=== PATIENT | male | born 1970 | race Caucasian/White ===

== ENCOUNTER 2020-09-08 20:13 | Emergency (ER) | payer BC, SELFPAY ==
--- NOTE | 2020-09-08 | ECG_ITS ---
Test Reason : CHEST PAIN Blood Pressure : / mmHG Vent. Rate : 074 BPM Atrial Rate : 074 BPM P-R Int : 144 ms QRS Dur : 104 ms QT Int : 428 ms P-R-T Axes : 064 034 089 degrees QTc Int : 475 ms Sinus rhythm with occasional Premature ventricular complexes Possible Left atrial enlargement Left ventricular hypertrophy with repolarization abnormality Abnormal ECG No previous ECGs available Referred By: Generic ED Physician Electronically Signed By:PAPO GARCIA
[2020-09-08 20:17] VITALS: BP 147/79; PULSE 72; RESP 18; TEMP 36.5; O2SAT 97; BMI 32.3
--- NOTE | 2020-09-08 20:56 | ED.CHESTPAIN ---
HPI - Chest Pain General Chief Complaint: Chest Pain Stated Complaint: Chest Pain Time Seen by Provider: 09/08/20 20:56 Source: patient Mode of arrival: ambulatory Limitations: no limitations History of Present Illness HPI narrative: Patient is status post aortic valve replaced x2 for congenital bicuspid aortic valve last surgery was 2 years ago when he had a cardiac catheterization done which was negative for any coronary artery disease. Patient on Coumadin with therapeutic INR complaining of chest pain for last 2 weeks off and on lasting only for 30 secondsto 1 min with no diaphoresis or nausea/ vomiting patient does complain of mild shortness of breath saturating 98% at room air when he arrived no palpitation no syncope patient has not seen cardiology for last 2 years applied today had pain prior to arrival hence came to the ER no chest pain at this time patient is on aspirin and Coumadin Related Data Allergies Allergy/AdvReac Type Severity Reaction Status Date / Time No Known Allergies Allergy Unverified 10/29/19 15:39 [No Known Allergies*] Review of Systems Review of Systems: Constitutional : No Weight loss, No Fever, No Chills ENT/Mouth : No sore throat, No Rhinorrhea Eyes: No Eye Pain, No Swelling Cardiovascular : + Chest Pain, no palpitations Respiratory : No Cough, No Sputum, + shortness of breath Gastrointestinal : no Nausea, No Vomiting, No Diarrhea, No abdominal Pain, no black stools Genitourinary : No Dysuria, No Urinary Frequency Musculoskeletal : No joint pain, No Myalgias, No Joint Swelling Skin : No Skin Lesions, No rash Neuro : No Weakness, No Numbness, No Dizziness, No Headache Psych : No Anxiety/Panic, No Depression Heme/Lymph: No Bruising, No Lymphadenopathy Endocrine : No Polyuria, No Polydipsia All other systems reviewed and are negative [facility] Past Medical History Medical History HTN (hypertension) Surgical History Aortic valve replaced Social History Social History Advance Directives: No Advance Directives Information Provided: No Physical Exam Vital Signs: Vital Signs: Last Vital Signs Temp 97.7 F 09/08/20 20:17 Pulse 72 07/29/21 20:17 Resp 18 09/08/20 20:17 BP 147/79 H 09/08/20 20:17 Pulse Ox 97 09/08/20 20:17 Body Mass Index 32.3 Appearance: Alert. Oriented X3. No acute distress. Eyes: PERRLA, no icterus or pallor ENT: Pharynx normal. Oral Mucosa moist Neck: Normal inspection. Neck supple. CVS: Normal heart rate and rhythm. Pulses normal. Aortic valve click++ no murmur Respiratory: No respiratory distress. Equal air entry bilateral, no wheezing/rales/rhonchi Abdomen: Soft and nontender. Bowel sounds are present, no mass palpable, no CVA tenderness Skin: Skin warm and dry. Normal skin color. Normal skin turgor. Extremities: No lower extremity edema. No calf tenderness Neuro: Oriented X 3. MDM - Chest Pain MDM Narrative Medical decision making narrative: Patient with atypical chest pain with no known coronary artery disease had cardiac catheterization 2 years ago which was negative on Coumadin and aspirin came for atypical chest pain lasting for 30 seconds to 1 minute for last 2 weeks with normal EKG and 2 sets of high sensitive troponin without any significant delta change at this time patient is chest pain-free will discharge patient home advised to follow-up with his manager support services Lab Data Attestation: I reviewed the patient's lab results. Result diagrams: 09/08/20 21:04 09/08/20 21:04 Labs: Lab Results 09/08/20 09/08/20 09/08/20 Range/Units 21:03 21:04 21:04 WBC 7.0 (4.8-10.8) X10*3/uL RBC 5.00 (4.60-5.80) X10*6/uL Hgb 12.8 L (14.0-18.0) g/dl Hct 41.4 L (42-52) % MCV 82.8 (80-98) fL MCH 25.6 L (27.0-33.0) pg MCHC 30.9 L (31.0-36.0) g/dl RDW 15.0 (11.0-16.0) % Plt Count 136 L (160-400) X10*3/uL MPV TNP Immature Gran % (Auto) Cancelled Neut % (Auto) Cancelled Lymph % (Auto) Cancelled [place] % (Auto) Cancelled Eos % (Auto) Cancelled Baso % (Auto) Cancelled Lymph # (Auto) Cancelled [place] # (Auto) Cancelled Eos # (Auto) Cancelled Baso # (Auto) Cancelled Abs Immat Gran (auto) Cancelled Absolute Neuts (auto) Cancelled Absolute Nucleated RBC 0.000 (0.0-0.012) X10*3/uL Nucleated RBC % (auto) 0.0 (0.0-0.2) /100WBC Neutrophils % (Manual) 67 (45-73) % Band Neutrophils % 1 L (3-5) % Lymphocytes % (Manual) 22 (20-40) % Atypical Lymphs % (Man) 1 (0-6) % Monocytes % (Manual) 5 (2-11) % Eosinophils % (Manual) 4 (0-4) % Abs Neuts (Manual) 4.8 (2.2-7.9) X10*3/uL Lymphocytes # (Manual) 1.5 (0.6-4.8) X10*3/uL Atyp Lymphs # (Manual) 0.1 x10*3/uL Monocytes # (Manual) 0.4 (0.0-1.2) X10*3/uL Eosinophils # (Manual) 0.3 (0.0-0.8) X10*3/UL Platelet Estimate DECREASED (NORMAL) Large Platelets PRESENT Plt Morphology Comment NORMAL RBC Morphology NOTED Polychromasia 1+ (0-2) /OIF Ovalocytes 1+ (5-14) /OIF [place] Cells 1+ (0-2) /OIF Acanthocytes (Spur) 1+ (0-2) /OIF PT (9.9-13.0) SEC INR (0.9-1.1) Sodium 142 (135-145) mmol/L Potassium 4.0 (3.3-5.1) mmol/L Chloride 106 (96-108) mmol/L Carbon Dioxide 27 (22-29) mmol/L Anion Gap 13 (12-20) BUN 15 (9-16) mg/dL Creatinine 1.18 (0.5-1.4) mg/dL Estim Creat Clear Calc 78.1 Estimated GFR > 60 Random Glucose 102 (60-115) mg/dL Calcium 9.4 (8.4-10.2) mg/dL Troponin I High Sens 19.4 (<3.5-35.0) ng/L 09/08/20 09/08/20 Range/Units 21:05 23:10 WBC (4.8-10.8) X10*3/uL RBC (4.60-5.80) X10*6/uL Hgb (14.0-18.0) g/dl Hct (42-52) % MCV (80-98) fL MCH (27.0-33.0) pg MCHC (31.0-36.0) g/dl RDW (11.0-16.0) % Plt Count (160-400) X10*3/uL MPV Immature Gran % (Auto) Neut % (Auto) Lymph % (Auto) [place] % (Auto) Eos % (Auto) Baso % (Auto) Lymph # (Auto) [place] # (Auto) Eos # (Auto) Baso # (Auto) Abs Immat Gran (auto) Absolute Neuts (auto) Absolute Nucleated RBC (0.0-0.012) X10*3/uL Nucleated RBC % (auto) (0.0-0.2) /100WBC Neutrophils % (Manual) (45-73) % Band Neutrophils % (3-5) % Lymphocytes % (Manual) (20-40) % Atypical Lymphs % (Man) (0-6) % Monocytes % (Manual) (2-11) % Eosinophils % (Manual) (0-4) % Abs Neuts (Manual) (2.2-7.9) X10*3/uL Lymphocytes # (Manual) (0.6-4.8) X10*3/uL Atyp Lymphs # (Manual) x10*3/uL Monocytes # (Manual) (0.0-1.2) X10*3/uL Eosinophils # (Manual) (0.0-0.8) X10*3/UL Platelet Estimate (NORMAL) Large Platelets Plt Morphology Comment RBC Morphology Polychromasia /OIF Ovalocytes /OIF [place] Cells /OIF Acanthocytes (Spur) /OIF PT 35.3 H (9.9-13.0) SEC INR 3.0 H (0.9-1.1) Sodium (135-145) mmol/L Potassium (3.3-5.1) mmol/L Chloride (96-108) mmol/L Carbon Dioxide (22-29) mmol/L Anion Gap (12-20) BUN (9-16) mg/dL Creatinine (0.5-1.4) mg/dL Estim Creat Clear Calc Estimated GFR Random Glucose (60-115) mg/dL Calcium (8.4-10.2) mg/dL Troponin I High Sens 18.0 (<3.5-35.0) ng/L ECG Data ECG #1: Attestation: I personally reviewed and interpreted this ECG as follows: Interpretation: Normal sinus rhythm heart rate 74 beats per minute LVH early repolarization changes normal interval normal axis no acute ST T wave changes no acute ischemia Discharge Plan Discharge Clinical Impression: Atypical chest pain Patient Disposition: Home, Self-Care Instructions: Chest Pain (ED) Additional Instructions: Follow-up with manager support services at this time your chest pain does not seem to be from coronary artery disease Report to the ER if chest pain get worse
[2020-09-08 21:12] LABS: Hematocrit 41.4 % (42-52); Hemoglobin 12.8 g/dl (14.0-18.0); Mean Corpuscular HGB Conc 30.9 g/dl (31.0-36.0); Mean Corpuscular Hemoglobin 25.6 pg (27.0-33.0); Mean Corpuscular Volume 82.8 fL (80-98)
[2020-09-08 21:15] LABS: PLT ABN DIST 1; WBC ABN SCTR FOR CBC 1
[2020-09-08 21:18] LABS: Prothrombin Time 35.3 SEC (9.9-13.0)
[2020-09-08 21:37] LABS: Anion Gap 13 (12-20); Blood Urea Nitrogen 15 mg/dL (9-16); Calcium 9.4 mg/dL (8.4-10.2); Carbon Dioxide 27 mmol/L (22-29); Chloride 106 mmol/L (96-108); Creatinine Clr Calc Pharmacy 78.1; Estimated Glomerular Filt Rate > 60; Glucose Random 102 mg/dL (60-115); Sodium 142 mmol/L (135-145)
[2020-09-08 21:42] LABS: Atypical Lymphs Percent Manual 1 % (0-6); Band Neutrophils Percent 1 % (3-5); Eosinophils Percent Manual 4 % (0-4); Lymphocytes Percent Manual 22 % (20-40); Monocytes Percent Manual 5 % (2-11); Neutrophils Percent Manual 67 % (45-73)
[2020-09-08 21:43] LABS: Troponin-I High Sensitivity 19.4 ng/L (<3.5-35.0)
[2020-09-08 21:43] LABS: RBC Morphology NOTED
[2020-09-08 21:44] LABS: Acanthocytes 1+ (0-2) /OIF; Burr Cells 1+ (0-2) /OIF; Large Platelet PRESENT; Ovalocytes 1+ (5-14) /OIF; Platelet Estimate DECREASED (NORMAL); Platelet Morphology Comment NORMAL; Polychromasia 1+ (0-2) /OIF
[2020-09-08 21:48] LABS: Atypical Lymph Absolute Manual 0.1 x10*3/uL; Eosinophils Absolute Manual 0.3 X10*3/UL (0.0-0.8); Lymphocytes Absolute Manual 1.5 X10*3/uL (0.6-4.8); Monocytes Absolute Manual 0.4 X10*3/uL (0.0-1.2); Neutrophils Absolute Manual 4.8 X10*3/uL (2.2-7.9); Platelet Count 136 X10*3/uL (160-400)
[2020-09-09 00:35] VITALS: BP 124/78; PULSE 64; RESP 18
[2020-09-09 00:36] VITALS: BP 124/7; PULSE 64; RESP 16; TEMP 36.7; O2SAT 98
== END 2020-09-09 00:36 | disposition home or self-care (01) ==
PROVIDERS: Emergency Provider Internal Medicine
DX: R07.89 Other chest pain (principal); I10 Essential (primary) hypertension; Z79.899 Other long term (current) drug therapy
CPT/HCPCS: 36415; 80048; 84484; 85007; 85027; 85610; 93005; 99284

== ENCOUNTER 2022-01-21 19:39 | Inpatient (IN) | payer BC, SELFPAY ==
--- NOTE | ~2022-01-21 | XR_ITS ---
EXAMINATION: XR CHEST CLINICAL INFORMATION: Cough, dyspnea COMPARISON: 04/18/2018 TECHNIQUE: 2 views of the chest were obtained. FINDINGS: Lung volumes are symmetric. There is heterogeneous opacity in the right infrahilar region which appears new from prior. There may be additional subtle focal opacity in the mid left lung laterally. No evidence of pneumothorax or pleural effusion. Cardiac size is within normal limits. Bowel prosthesis and sternal wires are noted. No acute osseous findings are seen. XR/XR chest 2V IMPRESSION: New heterogeneous right infrahilar opacity and possible subtle focal opacity in the mid left lung laterally. In the proper clinical setting, this could reflect developing pneumonia. Radiographic followup after treatment/resolution of symptoms is recommended.
--- NOTE | ~2022-01-21 | XR_ITS ---
EXAMINATION: XR CHEST CLINICAL INFORMATION: Pneumonia. COMPARISON: 01/21/2022 and 04/18/2018 chest radiographs. TECHNIQUE: Frontal view of the chest was obtained. FINDINGS: The lungs are clear. The heart and mediastinal structures are unremarkable. Multilevel sternotomy wires are intact XR/XR chest 1V IMPRESSION: No acute cardiopulmonary process.
[2022-01-21 19:46] VITALS: BP 145/76; PULSE 103; RESP 22; TEMP 38.7; O2SAT 89; BMI 36.6
--- NOTE | 2022-01-21 19:55 | PC.NURSE ---
charge nurse laurie aware client was stating 88% on RA in triage. Sent to room 18 and placed on 2 L NC
--- NOTE | 2022-01-21 19:56 | ECG_ITS ---
Test Reason : DYSPNEA Blood Pressure : / mmHG Vent. Rate : 098 BPM Atrial Rate : 098 BPM P-R Int : 134 ms QRS Dur : 098 ms QT Int : 352 ms P-R-T Axes : 063 027 097 degrees QTc Int : 449 ms Sinus rhythm with Premature atrial complexes Possible Left atrial enlargement ST & T wave abnormality, consider lateral ischemia Abnormal ECG When compared with ECG of 08-SEP-2020 20:23, Premature ventricular complexes are no longer Present Premature atrial complexes are now Present Referred By: Generic ED Physician Electronically Signed By:PAPO GARCIA
[2022-01-21 20:37] LABS: MANUAL DIFF FLAG NO
--- NOTE | 2022-01-21 20:46 | ED.SOB ---
HPI - SOB/Dyspnea General Chief Complaint: Dyspnea Stated Complaint: cough Time Seen by Provider: 01/21/22 20:26 Source: patient Mode of arrival: ambulatory Limitations: no limitations History of Present Illness HPI Narrative: Patient is status post aortic valve replaced x2 for congenital bicuspid aortic valve last surgery was 3 years ago when he had a cardiac catheterization done which was negative for any coronary artery disease. Comes here for cough shortness of breath wheezing, nasal congestion fever off and on for last 1 week noticed to have fever on arrival 101.7 saturating 89% at room air tachycardia 103 blood pressure 145/76 Related Data Allergies Allergy/AdvReac Type Severity Reaction Status Date / Time Penicillins AdvReac Unknown Verified 01/21/22 19:55 Review of Systems Review of Systems: Yes all other systems are reviewed and are negative [facility] Past Medical History Medical History HTN (hypertension) Surgical History Aortic valve replaced Social History Social History Advance Directives: No Advance Directives Information Provided: No Physical Exam Vital Signs: Vital Signs: Last Vital Signs Temp 98.0 F 01/22/22 00:00 Pulse 81 01/22/22 00:01 Resp 18 01/22/22 00:01 BP 136/85 01/22/22 00:00 Pulse Ox 92 01/22/22 00:00 O2 Del Method 01/22/22 00:00 O2 Flow Rate 2 01/22/22 00:00 BMI result Body Mass Index 36.6 Appearance: Alert. Oriented X3. Mild respiratory distress Eyes: PERRLA, No Nystagmus ENT: Pharynx normal. Oral Mucosa moist Neck: Normal inspection. Neck supple. CVS: Tachycardia regular rate and rhythm valve click is present no murmur Pulses normal. Respiratory: mildrespiratory distress. Equal air entry bilateral, bilateral wheezing and rhonchi no crackles Abdomen: Soft and nontender. Bowel sounds are present, no mass palpable, no CVA tenderness Skin: Skin warm and dry. Normal skin color. Normal skin turgor. Extremities: No lower extremity edema. No calf tenderness Neuro: Oriented X 3. No motor deficit. No sensory deficit. Medications Administered Discontinued Medications Generic Name Dose Route Start Last Admin Trade Name Dante PRN Reason Stop Dose Admin Albuterol Sulfate 5 mg/ 0 mg 01/21/22 23:36 01/22/22 00:00 Albuterol/Ipratropium 3 ml INHALE 01/21/22 23:37 1 each ONCE ONE Administration Guaifenesin/Codeine Phosphate 10 ml 01/21/22 23:36 01/21/22 23:55 Guaifen/Codeine Sf 200/20/10ml 10 Ml Liquid PO 01/21/22 23:37 10 ml ONCE ONE Administration Methylprednisolone Sodium Succinate 125 mg 01/21/22 23:36 01/21/22 23:55 Methylprednisolone Sod Succ 125 Mg/2 Ml Vial IVPUSH 01/21/22 23:37 125 mg ONCE ONE Administration Medical Decision Making Medical Decision Making [facility] Narrative: 0030 Patient with fever nasal congestion initially considered as a viral likely influenza lab workup showed negative influenza negative COVID and RSV at 23:28, had leukocytosis with left shift chest x-ray showed possible infiltrate patient being with history of prosthetic valve will consider endocarditis could be possibilities 3 sets of blood cultures ordered including lactic acid ordered and patient been septic was considered will start on empirical vancomycin and cefepime fluids were restricted because of history of CHF Lab Attestation: I reviewed the patient's lab results. Independent interpretation of EKG, rhythm strip, radiology study: Independent interp EKG,rhythm strip, radiology study My interpretation is Discharge Plan Discharge Clinical Impression: Acute bronchitis, Community acquired pneumonia Patient Disposition: Admitted As Inpatient
[2022-01-21 21:01] LABS: Basophils Absolute Auto 0.1 X10*3/uL (0.0-0.2); Basophils Percent Auto 0.4 % (0-2); Eosinophils Absolute Auto 0.4 X10*3/uL (0.0-0.4); Eosinophils Percent Auto 2.7 % (0-4); Hematocrit 38.3 % (42.0-52.0); Hemoglobin 11.9 g/dl (14.0-18.0); Imm Gran Abs Auto 0.11 X10*3/uL (0.00-0.03); Imm Gran Pct Auto 0.7 % (0.0-0.4); Lymphocytes Absolute Auto 0.9 X10*3/uL (1.2-4.9); Lymphocytes Percent Auto 5.8 % (20-40); Mean Corpuscular HGB Conc 31.1 g/dl (31.0-36.0); Mean Corpuscular Hemoglobin 24.3 pg (27.0-33.0); Mean Corpuscular Volume 78.3 fL (80.0-98.0); Mean Platelet Volume 12.8 fL (9.4-12.4); Monocytes Absolute Auto 1.5 X10*3/uL (0.1-1.2); Monocytes Percent Auto 9.2 % (2-11); Neutrophils Absolute Auto 13.2 x10*3/uL (2.0-8.3); Neutrophils Percent Auto 81.2 % (45-73); Platelet Count 240 X10*3/uL (160-400); Red Blood Count 4.89 X10*6/uL (4.60-5.80); Red Cell Distribution Width 15.7 % (11.0-16.0); White Blood Count 16.2 X10*3/uL (4.8-10.8)
[2022-01-21 21:04] LABS: B Type Natriuretic Peptide 222 pg/mL (<100)
[2022-01-21 21:06] LABS: Troponin-I High Sensitivity 15.5 ng/L (<3.5-35.0)
[2022-01-21 21:12] VITALS: BP 130/81; PULSE 92; RESP 29; TEMP 37.2; O2SAT 93
[2022-01-21 21:20] LABS: Anion Gap 14 (12-20); Blood Urea Nitrogen 16 mg/dL (9-16); Calcium 8.9 mg/dL (8.4-10.2); Carbon Dioxide 26 mmol/L (22-29); Chloride 101 mmol/L (96-108); Creatinine Clr Calc Pharmacy 94.8; Estimated Glomerular Filt Rate > 60; Glucose Random 108 mg/dL (60-115); Potassium 4.1 mmol/L (3.3-5.1); Sodium 137 mmol/L (135-145)
[2022-01-21] MEDS: guaiFEN/Codeine SF 200/20/10ML 10 ML LIQUID PO (23:55)
[2022-01-21] MEDS: methylPREDNISolone Sod Succ 125 MG/2 ML VIAL IVPUSH (23:55)
[2022-01-21 23:57] VITALS: BP 136/85; PULSE 83; RESP 22; O2SAT 93
[2022-01-22] VITALS (11 sets, daily range): BP systolic 123–166; BP diastolic 77–94; PULSE 72–84; RESP 18–26; TEMP 36.4–36.9; O2SAT 92–98
[2022-01-22] MEDS: Albuterol Sulfate 5 MG, Albuterol/Iprat 2.5/0.5MG 3 ML 3 ML INHALE
[2022-01-22 00:13] LABS: Influenza A PCR NEGATIVE (Negative); Influenza B PCR NEGATIVE (Negative); Resp Syncy Virus RNA Qual PCR NEGATIVE (Negative); SARS COV2 PCR INHOUSE NEGATIVE (Negative)
[2022-01-22 01:24] LABS: Lactic Acid 0.8 mmol/L (0.5-2.0)
[2022-01-22] MEDS: cefEPime HCl 2 GM in 0.9 % Sodium Chloride 50 ML IV (01:27)
[2022-01-22] MEDS: 0.9 % Sodium Chloride 1,000 ML 999 ML IV (01:27)
[2022-01-22 01:31] LABS: C Reactive Protein 6.98 mg/dL (< or = 0.50)
[2022-01-22] MEDS: vancomycin HCL 1,000 MG in 0.9 % Sodium Chloride 250 ML 270 MG IV ×2 (01:50→03:09)
--- NOTE | 2022-01-22 02:06 | PC.NURSE ---
Spoke to Linnea, pharmacist who advised this RN to start Vanco 1 g IV when fist dose of Vanco infused to start second dose of Vanco 1 g for total dose of 2 g.
--- NOTE | 2022-01-22 02:16 | PM.IMHP ---
History of Present Illness Date of Service: 01/22/22 Chief Complaint: Dyspnea This is 51-year-old male with pertinent history of essential hypertension, mixed hyperlipidemia, status post aortic valve replacement on Coumadin, presents to the emergency department for evaluation of dyspnea. Patient states he has been having cough for the last 1 week but over the last 4 days it has progressed with yellowish sputum production. Also has been having progressive dyspnea, worse with exertion. Does not use oxygen at home. Has associated fever and chills and generalized malaise. Patient denies chest discomfort, palpitations, abdominal pain, changes in urinary or bowel habits In the emergency department, patient was found to be febrile and hypoxemic. Review of Systems Constitutional: Constitutional: Reports chills, Reports fatigue, Reports fever(s) and Reports malaise Cardiovascular: Cardiovascular: Reports no additional cardiovascular complaints and Reports dyspnea on exertion Respiratory: Respiratory: Reports change in phlegm color, Reports cough and Reports dyspnea on exertion Gastrointestinal: Gastrointestinal: Reports no additional gastrointestinal complaints Genitourinary: Genitourinary: Reports no additional male genitourinary complaints Endocrine: Endocrine: Reports fatigue [facility] Medical History (Updated 01/22/22 @ 02:26 by Raymundo Hdez MD) HTN (hypertension) Hyperlipidemia (Unknown) Pertinent family history: No pertinent medical history in first-degree relatives Surgical History Aortic valve replaced Social History Advance Directives: No Advance Directives Information Provided: No Meds Allergies Allergy/AdvReac Type Severity Reaction Status Date / Time Penicillins AdvReac Unknown Verified 01/21/22 19:55 Active Medications: Current Medications Vancomycin HCl 1,000 mg/ (Sodium Chloride) 270 mls @ 270 mls/hr IV ONCE ONE Stop: 01/22/22 03:59 Pharmacy Consult (Consult Rx Vancomycin Dosing) 1 each MISCELLANE DAILY PRN PRN Reason: Consult order Pharmacy Consult (Consult Rx Perform Med Rec) 1 each MISCELLANE ONCE PRN PRN Reason: Consult order Physical Exam Vital Signs and Narrative: Vital Signs: Last Vital Signs Temp 98.0 F 01/22/22 00:00 Pulse 83 01/22/22 01:40 Resp 20 01/22/22 01:40 BP 139/84 01/22/22 01:40 Pulse Ox 95 01/22/22 01:40 O2 Del Method 01/22/22 01:40 O2 Flow Rate 2 01/22/22 01:40 BMI result Body Mass Index 36.6 Middle-aged male lying in bed in mild distress on supplemental oxygen Neck supple, no JVD Regular rate and rhythm, S1-S2 heard Right-sided crackles without wheezing Abdomen soft nontender, no guarding, no rigidity Patient is awake, alert and oriented to self, place, time and person ; no focal motor deficit Psych: Normal mood No pedal edema Results Labs CBC and Chem 7: 01/21/22 20:31 01/21/22 20:31 Labs: Laboratory Results - last 24 hr 01/21/22 01/21/22 01/21/22 20:31 20:31 20:31 MCV 78.3 L MCH 24.3 L MCHC 31.1 RDW 15.7 Plt Count 240 MPV 12.8 H Immature Gran % (Auto) 0.7 H Neut % (Auto) 81.2 H Lymph % (Auto) 5.8 L [place] % (Auto) 9.2 Eos % (Auto) 2.7 Baso % (Auto) 0.4 Lymph # (Auto) 0.9 L [place] # (Auto) 1.5 H Eos # (Auto) 0.4 Baso # (Auto) 0.1 Abs Immat Gran (auto) 0.11 H Absolute Neuts (auto) 13.2 H Absolute Nucleated RBC 0.000 Nucleated RBC % (auto) 0.0 Anion Gap 14 Estim Creat Clear Calc 94.8 Estimated GFR > 60 Random Glucose 108 Lactic Acid Calcium 8.9 Troponin I High Sens 15.5 C-Reactive Protein 6.98 H B-Natriuretic Peptide Influenza Type A (PCR) Influenza Type B (PCR) RSV RNA Qual (PCR) SARS-CoV-2 RNA (RT-PCR) 01/21/22 01/21/22 01/22/22 20:31 23:28 01:10 MCV MCH MCHC RDW Plt Count MPV Immature Gran % (Auto) Neut % (Auto) Lymph % (Auto) [place] % (Auto) Eos % (Auto) Baso % (Auto) Lymph # (Auto) [place] # (Auto) Eos # (Auto) Baso # (Auto) Abs Immat Gran (auto) Absolute Neuts (auto) Absolute Nucleated RBC Nucleated RBC % (auto) Anion Gap Estim Creat Clear Calc Estimated GFR Random Glucose Lactic Acid 0.8 Calcium Troponin I High Sens C-Reactive Protein B-Natriuretic Peptide 222 H Influenza Type A (PCR) NEGATIVE Influenza Type B (PCR) NEGATIVE RSV RNA Qual (PCR) NEGATIVE SARS-CoV-2 RNA (RT-PCR) NEGATIVE Imaging Radiologist's Impressions: Impressions Chest X-Ray 01/21/22 20:05 IMPRESSION: New heterogeneous right infrahilar opacity and possible subtle focal opacity in the mid left lung laterally. In the proper clinical setting, this could reflect developing pneumonia. Radiographic followup after treatment/resolution of symptoms is recommended. Assessment and Plan (1) Community acquired pneumonia: Status: Acute (2) Hyperlipidemia: Status: Acute (3) HTN (hypertension): Status: Acute Plan This is 51-year-old male with pertinent history of essential hypertension, mixed hyperlipidemia, status post aortic valve replacement on Coumadin, presents to the emergency department for evaluation of dyspnea. #. Acute hypoxemic respiratory failure and sepsis secondary to community-acquired pneumonia: Will admit patient and initiate empiric IV antibiotics for CAP. Continue supplemental oxygen and wean as tolerated. Sputum cultures pending. Lactic acid and blood cultures obtained. Resuscitated with IV crystalloids. #. Essential hypertension: Continue metoprolol and lisinopril #. Status post aortic valve replacement: On Coumadin #. Mixed hyperlipidemia: On statin Med rec pending DVT prophylaxis: On Coumadin Full code Cardiac diet Admit as inpatient and will require two night minimum hospital stay for IV antibiotics and supplemental oxygen Time Spent With Patient Time: Total time managing care of this patient today ____ minutes. Quality Stroke Does the patient have a stroke diagnosis?: No VTE Prior VTE?: No VTE Risk Level:: Medical - moderate - high VTE Device Contraindication: Treatment Not Indicated VTE Drug Contraindication: N/A - Med Ordered
[2022-01-22] MEDS: Azithromycin 500 MG in 0.9 % Sodium Chloride 250 ML 125 MG IV (04:18)
--- NOTE | 2022-01-22 05:26 | PC.NURSE ---
LATE ENTRY- this rn assisted pt in walking to the bathroom. pt tolerated ambulation well.
--- NOTE | 2022-01-22 05:29 | PC.NURSE ---
LATE ENTRY- pt medicated according to APR, reports no pain at this time
--- NOTE | 2022-01-22 05:29 | PC.NURSE ---
this rn checked on pt at this time. rn offered pt something to eat or drink. per pt request this rn provided pt with sandwich, crackers, and apple juice. no new requests at this time
[2022-01-22 06:51] LABS: Anion Gap 13 (12-20); Basophils Percent Auto 0.3 % (0-2); Blood Urea Nitrogen 15 mg/dL (9-16); Calcium 8.4 mg/dL (8.4-10.2); Carbon Dioxide 23 mmol/L (22-29); Chloride 105 mmol/L (96-108); Creatinine Clr Calc Pharmacy 110.4; Eosinophils Absolute Auto 0.1 X10*3/uL (0.0-0.4); Eosinophils Percent Auto 0.7 % (0-4); Estimated Glomerular Filt Rate > 60; Glucose Random 202 mg/dL (60-115); Hematocrit 38.6 % (42.0-52.0); Hemoglobin 11.7 g/dl (14.0-18.0); Imm Gran Abs Auto 0.08 X10*3/uL (0.00-0.03); Imm Gran Pct Auto 0.6 % (0.0-0.4); Lymphocytes Absolute Auto 0.5 X10*3/uL (1.2-4.9); Lymphocytes Percent Auto 3.8 % (20-40); MANUAL DIFF FLAG SCAN; Mean Corpuscular HGB Conc 30.3 g/dl (31.0-36.0); Mean Corpuscular Hemoglobin 23.9 pg (27.0-33.0); Mean Corpuscular Volume 78.8 fL (80.0-98.0); Monocytes Absolute Auto 0.1 X10*3/uL (0.1-1.2); Monocytes Percent Auto 0.5 % (2-11); Neutrophils Absolute Auto 12.4 x10*3/uL (2.0-8.3); Neutrophils Percent Auto 94.1 % (45-73); Platelet Count 190 X10*3/uL (160-400); Potassium 4.2 mmol/L (3.3-5.1); Red Cell Distribution Width 15.8 % (11.0-16.0); SCAN SMEAR FLAG 1; Sodium 137 mmol/L (135-145); White Blood Count 13.2 X10*3/uL (4.8-10.8)
[2022-01-22 07:14] LABS: SLIDE REVIEW VERIFIED
[2022-01-22 07:27] LABS: Erythrocyte Sedimentation Rate 33 MM/HR (0-15)
[2022-01-22] MEDS: cefTRIAXone sodium 1 GM in 0.9 % Sodium Chloride 50 ML IV (08:57)
--- NOTE | 2022-01-22 09:16 | P.PNIM_ITS ---
Subjective Subjective Date of Service: 01/22/22 Interval History: Pt seen for f/u for CAP Interval history: Pt seen at bedside resting comfortably. Feeling better than at admission. Breath ing more easily, cough improved, no SOB. Denies chest pain/pressure. Currently sating 95% on 2L. Review of Systems Occasional productive cough, improved No SOB Denies chest pain/pressure, palpitations Physical Exam Vital Signs: Vital Signs: Last Vital Signs Temp 98.5 F 01/22/22 07:04 Pulse 81 01/22/22 08:56 Resp 18 01/22/22 08:56 BP 130/77 01/22/22 08:56 Pulse Ox 95 01/22/22 08:56 O2 Del Method 01/22/22 08:56 O2 Flow Rate 2 01/22/22 08:56 BMI result Body Mass Index 36.6 General: AOx3, no acute distress Resp: Diffuse inspiratory and expiratory crackles bilaterally CVS: S1, S2, RRR; valve click present GI: +BS, NT, no distention Skin: No rash Neuro: Motor grossly intact Psych: Appropriate affect Objective Data Active Medications Acetaminophen (Acetaminophen 325 Mg Tablet) 650 mg PO Q6H PRN PRN Reason: Pain, Mild (Pain Scale 1-3) Benzonatate (Benzonatate 100 Mg Capsule) 200 mg PO TID PRN PRN Reason: cough Azithromycin 500 mg/ Sodium (Chloride) 250 mls @ 125 mls/hr IV Q24H [facility] Last Infusion: 01/22/22 07:36 Dose: 125 mls/hr Documented By: LUIS Ceftriaxone Sodium 1 gm/ (Sodium Chloride) 50 mls @ 100 mls/hr IV Q24H [facility] Last Admin: 01/22/22 08:57 Dose: 100 mls/hr Documented By: EMILY Melatonin (Melatonin 3 Mg Tablet) 6 mg PO BEDTIME PRN PRN Reason: Insomnia Ondansetron HCl (Ondansetron Hcl 4 Mg/2 Ml Vial) 4 mg IVPUSH Q8H PRN PRN Reason: Nausea and Vomiting Pharmacy Consult (Consult Rx Vancomycin Dosing) 1 each MISCELLANE DAILY PRN PRN Reason: Consult order Pharmacy Consult (Consult Rx Perform Med Rec) 1 each MISCELLANE ONCE PRN PRN Reason: Consult order Sodium Chloride (0.9 % Sodium Chloride Flush 3 Ml Syringe) [address] [facility] Labs CBC & Chem 7: 01/22/22 06:01 01/22/22 06:01 Labs: Laboratory Results - last 24 hr 01/21/22 01/21/22 01/21/22 20:31 20:31 20:31 MCV 78.3 L MCH 24.3 L MCHC 31.1 RDW 15.7 Plt Count 240 MPV 12.8 H Immature Gran % (Auto) 0.7 H Neut % (Auto) 81.2 H Lymph % (Auto) 5.8 L [place] % (Auto) 9.2 Eos % (Auto) 2.7 Baso % (Auto) 0.4 Lymph # (Auto) 0.9 L [place] # (Auto) 1.5 H Eos # (Auto) 0.4 Baso # (Auto) 0.1 Abs Immat Gran (auto) 0.11 H Absolute Neuts (auto) 13.2 H Absolute Nucleated RBC 0.000 Nucleated RBC % (auto) 0.0 Smear Tech's Comments ESR Anion Gap 14 Estim Creat Clear Calc 94.8 Estimated GFR > 60 Random Glucose 108 Lactic Acid Calcium 8.9 Troponin I High Sens 15.5 C-Reactive Protein 6.98 H B-Natriuretic Peptide Influenza Type A (PCR) Influenza Type B (PCR) RSV RNA Qual (PCR) SARS-CoV-2 RNA (RT-PCR) 01/21/22 01/21/22 01/22/22 20:31 23:28 01:10 MCV MCH MCHC RDW Plt Count MPV Immature Gran % (Auto) Neut % (Auto) Lymph % (Auto) [place] % (Auto) Eos % (Auto) Baso % (Auto) Lymph # (Auto) [place] # (Auto) Eos # (Auto) Baso # (Auto) Abs Immat Gran (auto) Absolute Neuts (auto) Absolute Nucleated RBC Nucleated RBC % (auto) Smear Tech's Comments ESR Anion Gap Estim Creat Clear Calc Estimated GFR Random Glucose Lactic Acid 0.8 Calcium Troponin I High Sens C-Reactive Protein B-Natriuretic Peptide 222 H Influenza Type A (PCR) NEGATIVE Influenza Type B (PCR) NEGATIVE RSV RNA Qual (PCR) NEGATIVE SARS-CoV-2 RNA (RT-PCR) NEGATIVE 01/22/22 01/22/22 01/22/22 06:01 06:01 06:01 MCV 78.8 L MCH 23.9 L MCHC 30.3 L RDW 15.8 Plt Count 190 MPV 13.0 H Immature Gran % (Auto) 0.6 H Neut % (Auto) 94.1 H Lymph % (Auto) 3.8 L [place] % (Auto) 0.5 L Eos % (Auto) 0.7 Baso % (Auto) 0.3 Lymph # (Auto) 0.5 L [place] # (Auto) 0.1 Eos # (Auto) 0.1 Baso # (Auto) 0.0 Abs Immat Gran (auto) 0.08 H Absolute Neuts (auto) 12.4 H Absolute Nucleated RBC 0.000 Nucleated RBC % (auto) 0.0 Smear Tech's Comments VERIFIED ESR 33 H Anion Gap 13 Estim Creat Clear Calc 110.4 Estimated GFR > 60 Random Glucose 202 H Lactic Acid Calcium 8.4 Troponin I High Sens C-Reactive Protein B-Natriuretic Peptide Influenza Type A (PCR) Influenza Type B (PCR) RSV RNA Qual (PCR) SARS-CoV-2 RNA (RT-PCR) Assessment and Plan (1) Community acquired pneumonia: Status: Acute Plan Pt is a 51-year-old male with PMH significant for HTN, mixed hyperlipidemia, s/p aortic valve replacement three years ago on Coumadin, who presented to the ED f or evaluation of dyspnea. CXR showed evidence for community acquired pneumonia. #.? Acute hypoxemic respiratory failure and sepsis secondary to community- acquired pneumonia? -- empiric IV antibiotics for CA: ceftriaxone and azithromycin -- supplemental oxygen to maintain O2 >92. Wean as tolerated -- sputum cultures pending -- lactic acid WNL -- blood cultures pending -- resuscitated with IV crystalloids #.? Essential hypertension -- continue metoprolol and lisinopril #.? Status post aortic valve replacement -- continue Coumadin #.? Mixed hyperlipidemia -- continue statin DVT prophylaxis:? On Coumadin Full code Cardiac diet Due to pt's continued need for IV abx and supplemental oxygen, will require continued hospitalization Time Spent With Patient Time: Total time managing care of this patient today ____ minutes. Quality Stroke Does the patient have a stroke diagnosis?: No VTE Prior VTE?: No VTE Risk Level:: Medical - moderate - high VTE Device Contraindication: Treatment Not Indicated VTE Drug Contraindication: N/A - Med Ordered
--- NOTE | 2022-01-22 09:24 | PHA.MEDREC ---
Pharmacy Consult ? Medication Reconciliation Pharmacy has completed the medication reconciliation. Patient reported all medications. Hermila Angelo, [employer]
--- NOTE | 2022-01-22 10:31 | MHC.CDI.CONC ---
CDI Concurrent Query Documentation Clarification: PHYSICIAN'S DOCUMENTATION REQUEST Date of Query: 01/22/22 1031 Patient Name: Chaim Cox Admit Date: 01/22/22 Dear Doctor, A review of the medical record indicates additional documentation may be needed. Please review below and update the documentation accordingly. Clinical Indicators: Risk Factors/Clinical Indicators/Treatments ED 01/22 - Narrative - fluid restriction due to history of CHF. Please clarify the documentation of [include the diagnosis]: Treating, ruled out, etc. - Congestive heart failure [ ] remains a known or suspected condition for this patient and is further supported by (include additional documentation in the medical record) [ ] has been ruled out and a more appropriate diagnosis for this patient?s condition is Other (please specify) Unable to determine Use of terms such as suspected, likely, concern for, or probable (associated with a specific diagnosis that is being evaluated, monitored, or treated as if it exists) are acceptable and can be coded in the inpatient setting, when documented at the time of discharge. Thank you, Diamond Villa [facility], CDIS Extension: [phone] Please use your independent medical judgment in providing your response. THIS QUERY IS PART OF THE PERMANENT MEDICAL RECORD Provider Response: Pneumonia Other Diagnosis: Patient's dyspnea and SOB likely secondary to pneumonia, less likely due to CHF. BNP only mildly elevated at 222, no edema, no JVD, and chest x-ray shows evidence for pneumonia.
--- NOTE | 2022-01-22 10:36 | P.CDIC_ITS ---
CDI Concurrent Query Documentation Clarification: PHYSICIAN'S DOCUMENTATION REQUEST Date of Query: 01/22/22 1037 Patient Name: Chaim Cox Admit Date: 01/22/22 Dear Doctor, A review of the medical record indicates additional documentation may be needed. Please review below and update the documentation accordingly. Risk Factors/Clinical Indicators/Treatments BMI: 36.6 5' 5 in height kg 99.79 If possible, please provide an associated diagnosis related to the abnormal BMI, such as: For a BMI >= 30: * Overweight * Obesity * Due to excess calories * Drug induced * Due to other cause * Unable to determine Use of terms such as suspected, likely, concern for, or probable (associated with a specific diagnosis that is being evaluated, monitored, or treated as if it exists) are acceptable and can be coded in the inpatient setting, when documented at the time of discharge. Thank you, Diamond Villa [facility], CDIS Extension: [phone] Please use your independent medical judgment in providing your response. THIS QUERY IS PART OF THE PERMANENT MEDICAL RECORD Provider Response: Obesity (Unable to determine)
[2022-01-22 10:40] LABS: Partial Thromboplastin Time 52.8 SEC (26.0-36.4)
[2022-01-22 10:44] LABS: Prothrombin Time 70.6 SEC (10.0-13.1)
[2022-01-22 10:47] LABS: INTERNATIONAL NORM RATIO 5.7 (0.9-1.1)
[2022-01-22] MEDS: Metoprolol Succinate ER 100 MG TAB.ER.24H 200 MG PO (10:52)
[2022-01-22] MEDS: lisinopriL 20 MG TABLET PO (10:52)
[2022-01-22] MEDS: Aspirin Enteric Coated 81 MG TABLET.DR PO (10:53)
[2022-01-22] MEDS: Atorvastatin Calcium 40 MG TABLET PO (10:53)
--- NOTE | 2022-01-22 10:54 | PC.NURSE ---
pt. alert and oriented. O2sat 97 on 2L. resting comfortably. gave him his morning meds
--- NOTE | 2022-01-22 12:19 | MHC.CM.PN ---
met with pt who lives with sister his car in parking lot dc plan home no servcies
[2022-01-22] MEDS: Benzonatate 100 MG CAPSULE 200 MG PO (17:06)
[2022-01-22] MEDS: 0.9 % Sodium Chloride Flush 3 ML SYRINGE IVFLUSH ×2 (17:06→20:13)
[2022-01-23] MEDS: Azithromycin 500 MG in 0.9 % Sodium Chloride 250 ML 125 MG IV (03:43)
[2022-01-23 03:52] VITALS: BP 155/92; PULSE 70; RESP 18; TEMP 36.6; O2SAT 96
--- NOTE | 2022-01-23 04:14 | PC.NURSE ---
Addendum entered by Georgia Niño RN 01/23/22 04:24: Pt c/o diarrhea 2x and requesting for Immudium, Dr. Tong was notifed, To collect stool for Cdiff., pt made aware. Original Note: Pt seen at start of the shift with scattered exp wheezing and Rhonchi, occasional strong and congested cough, denies any SOB, pt claimed he uses CPAP at bedtime at home but hasn't brought in own machine, Dr. Tong was made aware, prn neb ordered, CPAP ordered, RT was called and came to see pt.
[2022-01-23 06:10] LABS: Hemoglobin 11.7 g/dl (14.0-18.0); PLT ABN DIST 1; Red Cell Distribution Width 15.9 % (11.0-16.0)
[2022-01-23 06:12] LABS: Hematocrit 38.2 % (42.0-52.0); Mean Corpuscular HGB Conc 30.6 g/dl (31.0-36.0); Mean Corpuscular Hemoglobin 24.3 pg (27.0-33.0); Mean Corpuscular Volume 79.3 fL (80.0-98.0); Mean Platelet Volume 13.8 fL (9.4-12.4); PLT CLUMP 1; Red Blood Count 4.82 X10*6/uL (4.60-5.80)
[2022-01-23 06:18] LABS: White Blood Count 24.6 X10*3/uL (4.8-10.8)
[2022-01-23] MEDS: Benzonatate 100 MG CAPSULE 200 MG PO ×2 (06:21→20:10)
[2022-01-23] MEDS: cefTRIAXone sodium 1 GM in 0.9 % Sodium Chloride 50 ML IV (06:33)
[2022-01-23 06:40] LABS: Platelet Count 224 X10*3/uL (160-400)
[2022-01-23 07:34] VITALS: BP 150/87; PULSE 80; RESP 17; TEMP 37.1; O2SAT 92
[2022-01-23 08:32] LABS: INTERNATIONAL NORM RATIO 3.8 (0.9-1.1); Prothrombin Time 46.4 SEC (10.0-13.1)
[2022-01-23] MEDS: Aspirin Enteric Coated 81 MG TABLET.DR PO (08:44)
[2022-01-23] MEDS: Metoprolol Succinate ER 100 MG TAB.ER.24H 200 MG PO (08:44)
[2022-01-23] MEDS: Atorvastatin Calcium 40 MG TABLET PO (08:44)
[2022-01-23] MEDS: 0.9 % Sodium Chloride Flush 3 ML SYRINGE IVFLUSH ×3 (08:45→20:11)
[2022-01-23] MEDS: lisinopriL 20 MG TABLET PO (08:45)
--- NOTE | 2022-01-23 09:22 | HO.PM.IMPN ---
Subjective Subjective Date of Service: 01/23/22 Interval History: Pt seen for f/u for community acquired pneumonia Interval history: Patient had 2 episodes of diarrhea last night. If patient has another episode of diarrhea a sample will be collected and tested for C diff. Patient with TOMMY on CPAP at home but did not bring his device to the hospital. RT supplied CPAP for him to use at night while here. Otherwise patient doing well, better than at admission. Patient still complains of diffuse wheezing and occasional productive cough, but denies SOB and is able to ambulate independently in his room. That showed increased WBC to 24.6 from 13.2, unclear etiology. Chest x-ray was repeated, clear. Patient has improved clinically will repeat labs tomorrow and broaden antibiotics if continues to show an increase. 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 He he notes that he has had more problems with his lungs since then. Review of Systems Wheezing Occasional productive cough No chest pain/pressure No SOB No abdominal pain Review of Systems: Yes all other systems are reviewed and are negative Physical Exam Vital Signs: Vital Signs: Last Vital Signs Temp 98.7 F 01/23/22 07:34 Pulse 80 01/23/22 07:34 Resp 17 01/23/22 07:34 BP 150/87 H 01/23/22 07:34 Pulse Ox 92 01/23/22 07:34 O2 Del Method 01/23/22 07:34 O2 Flow Rate 2 01/22/22 08:56 BMI result Body Mass Index 36.6 General: AOx3, no acute distress Resp: Diffuse ispiratory and expiratory crackles bilaterally CVS: S1, S2, RRR GI: +BS, NT, no distention Skin: No rash Neuro: Motor grossly intact Psych: Appropriate affect Objective Data Active Medications Acetaminophen (Acetaminophen 325 Mg Tablet) 650 mg PO Q6H PRN PRN Reason: Pain, Mild (Pain Scale 1-3) Albuterol/Ipratropium (Albuterol/Iprat 2.5/0.5mg 3 Ml Ampul.Neb) 3 ml INHALE RQ4H PRN PRN Reason: Shortness of Breath/Wheezing Aspirin (Aspirin Enteric Coated 81 Mg Tablet.) 81 mg PO DAILY [facility] Last Admin: 01/23/22 08:44 Dose: 81 mg Documented By: LESLI Atorvastatin Calcium (Atorvastatin Calcium 40 Mg Tablet) 40 mg PO DAILY [facility] Last Admin: 01/23/22 08:44 Dose: 40 mg Documented By: LESLI Benzonatate (Benzonatate 100 Mg Capsule) 200 mg PO TID PRN PRN Reason: cough Last Admin: 01/23/22 06:21 Dose: 200 mg Documented By: JUAN DIEGOILJames Azithromycin 500 mg/ Sodium (Chloride) 250 mls @ 125 mls/hr IV Q24H [facility] Last Infusion: 01/23/22 05:52 Dose: 0 mls/hr Documented By: CHANDLER Ceftriaxone Sodium 1 gm/ (Sodium Chloride) 50 mls @ 100 mls/hr IV Q24H [facility] Last Infusion: 01/23/22 07:18 Dose: 0 mls/hr Documented By: LESLI Lisinopril (Lisinopril 20 Mg Tablet) 20 mg PO DAILY [facility]; Protocol Last Admin: 01/23/22 08:45 Dose: 20 mg Documented By: LESLI Melatonin (Melatonin 3 Mg Tablet) 6 mg PO BEDTIME PRN PRN Reason: Insomnia Metoprolol Succinate (Metoprolol Succinate Er 100 Mg Tab.Er.24h) 200 mg PO DAILY [facility]; Protocol Last Admin: 01/23/22 08:44 Dose: 200 mg Documented By: LESLI Ondansetron HCl (Ondansetron Hcl 4 Mg/2 Ml Vial) 4 mg IVPUSH Q8H PRN PRN Reason: Nausea and Vomiting Pharmacy Consult (Consult Rx Vancomycin Dosing) 1 each MISCELLANE DAILY PRN PRN Reason: Consult order Pharmacy Consult (Consult Rx Perform Med Rec) 1 each MISCELLANE ONCE PRN PRN Reason: Consult order Sodium Chloride (0.9 % Sodium Chloride Flush 3 Ml Syringe) 3 ml IVFLUSH QSHIFT [facility] Last Admin: 01/23/22 08:45 Dose: 3 ml Documented By: LESLI Warfarin Sodium (Warfarin Sodium 4 Mg Tablet) 4 mg PO Q48H [facility] Warfarin Sodium (Warfarin Sodium 3 Mg Tablet) 3 mg PO Q48H [facility] Labs CBC & Chem 7: 01/23/22 05:02 01/22/22 06:01 Labs: Laboratory Results - last 24 hr 01/22/22 01/23/22 01/23/22 09:48 05:02 08:05 MCV 79.3 L MCH 24.3 L MCHC 30.6 L RDW 15.9 Plt Count 224 MPV 13.8 H Absolute Nucleated RBC 0.000 Nucleated RBC % (auto) 0.0 PT 70.6 H 46.4 H INR 5.7 H* 3.8 H APTT 52.8 H Microbiology Microbiology Results: Microbiology 01/22/22 01:10 Blood Culture - Preliminary Blood - Venous No growth after 24 hours. 01/22/22 01:10 Blood Culture - Preliminary Blood - Venous No growth after 24 hours. Assessment and Plan (1) Community acquired pneumonia: Status: Acute Plan Pt is a 51-year-old male with PMH significant for HTN, mixed hyperlipidemia, s/p aortic valve replacement three years ago on Coumadin, who presented to the ED for evaluation of dyspnea. CXR showed evidence for community acquired pneumonia. Pt was admitted for treatment of pneumonia with IV abx. #.? Acute hypoxemic respiratory failure and sepsis secondary to community-acquired pneumonia? -- treated with ceftriaxone and azithromycin -- WBC increased today to 24.6 from 13.2, unclear etiology. Pt has improved clinically. Chest x-ray repeated, clear. Check labs again tomorrow and broaden abx if continue to increase -- now off supplemental oxygen, O2 sat 92 on RA -- sputum cultures pending -- lactic acid WNL -- blood cultures pending -- resuscitated with IV crystalloids in ED #.? Essential hypertension -- continue metoprolol and lisinopril #.? Status post aortic valve replacement -- INR supratherapeutic at 3.8 (goal of 2-3) -- continue to hold Coumadin today and recheck INR tomorrow. #.? Mixed hyperlipidemia -- continue statin #. TOMMY -- on CPAP at home -- continue CPAP at night #. diarrhea -- pt had multiple episodes of diarrhea last night -- awaiting next episode to test for c-diff -- stool culture DVT prophylaxis:? On Coumadin Full code Cardiac diet Pt continues to need hospitalization for IV abx treatment. Time Spent With Patient Time: Total time managing care of this patient today ____ minutes. Quality Stroke Does the patient have a stroke diagnosis?: No VTE Prior VTE?: No VTE Risk Level:: Medical - moderate - high VTE Device Contraindication: Treatment Not Indicated VTE Drug Contraindication: N/A - Med Ordered
[2022-01-23 10:43] LABS: Alanine Aminotransferase 183 U/L (0-40); Albumin Level 3.4 g/dL (3.5-5.0); Alkaline Phosphatase 141 U/L (39-117); Anion Gap 16 (12-20); Aspartate Amino Transferase 122 U/L (5-37); Bilirubin Total 0.5 mg/dL (0.0-1.0); Blood Urea Nitrogen 24 mg/dL (9-16); Calcium 8.7 mg/dL (8.4-10.2); Carbon Dioxide 21 mmol/L (22-29); Chloride 108 mmol/L (96-108); Creatinine Clr Calc Pharmacy 117.3; Estimated Glomerular Filt Rate > 60; Glucose Random 94 mg/dL (60-115); Potassium 5.2 mmol/L (3.3-5.1); Sodium 140 mmol/L (135-145); Total Protein 6.2 g/dL (6.5-8.0)
[2022-01-23 12:45] LABS: Adenovirus F 40/41 Not Detected (Not Detect.); Astrovirus Not Detected (Not Detect.); Campylobacter Not Detected (Not Detect.); Cryptosporidium Not Detected (Not Detect.); Cyclospora cayetanensis Not Detected (Not Detect.); E. coli EAEC Not Detected (Not Detect.); E. coli EPEC Not Detected (Not Detect.); E. coli ETEC Not Detected (Not Detect.); E. coli STEC Not Detected (Not Detect.); Entamoeba histolytica Not Detected (Not Detect.); Giardia lamblia Not Detected (Not Detect.); Norovirus GI/GII Not Detected (Not Detect.); Plesiomonas shigelloides Not Detected (Not Detect.); Rotavirus A Not Detected (Not Detect.); Salmonella Not Detected (Not Detect.); Sapovirus Not Detected (Not Detect.); Shigella sp./EIEC Not Detected (Not Detect.); Vibrio Not Detected (Not Detect.); Vibrio Cholerae Not Detected (Not Detect.); Yersinia enterocolitica Not Detected (Not Detect.)
[2022-01-23 13:26] LABS: CDiff Gene PCR NEGATIVE (Negative)
--- NOTE | 2022-01-23 14:26 | MHC.CM.PN ---
HCP FILLED OUT AND ATTACHED TO CHART
[2022-01-23 15:08] VITALS: BP 136/81; PULSE 77; RESP 18; TEMP 36.6; O2SAT 92
[2022-01-23 19:20] VITALS: BP 148/82; PULSE 78; RESP 18; TEMP 36.6; O2SAT 92
[2022-01-23] MEDS: Melatonin 3 MG TABLET 6 MG PO (22:18)
[2022-01-24 04:00] VITALS: BP 153/87; PULSE 66; RESP 18; TEMP 36.6; O2SAT 96
[2022-01-24] MEDS: Azithromycin 500 MG in 0.9 % Sodium Chloride 250 ML 125 MG IV (04:00)
[2022-01-24] MEDS: Benzonatate 100 MG CAPSULE 200 MG PO (06:03)
[2022-01-24] MEDS: cefTRIAXone sodium 1 GM in 0.9 % Sodium Chloride 50 ML IV (06:04)
[2022-01-24 06:41] LABS: INTERNATIONAL NORM RATIO 2.6 (0.9-1.1); Prothrombin Time 31.6 SEC (10.0-13.1)
[2022-01-24 07:29] VITALS: BP 155/86; PULSE 71; RESP 17; TEMP 36.8; O2SAT 93
[2022-01-24] MEDS: Aspirin Enteric Coated 81 MG TABLET.DR PO (07:50)
[2022-01-24] MEDS: lisinopriL 20 MG TABLET PO (07:50)
[2022-01-24] MEDS: Metoprolol Succinate ER 100 MG TAB.ER.24H 200 MG PO (07:50)
[2022-01-24] MEDS: Atorvastatin Calcium 40 MG TABLET PO (07:50)
[2022-01-24] MEDS: 0.9 % Sodium Chloride Flush 3 ML SYRINGE IVFLUSH (07:52)
[2022-01-24 09:31] LABS: Hematocrit 41.1 % (42.0-52.0); Hemoglobin 12.5 g/dl (14.0-18.0); Mean Corpuscular HGB Conc 30.4 g/dl (31.0-36.0); Mean Platelet Volume 12.4 fL (9.4-12.4); Platelet Count 319 X10*3/uL (160-400); Red Cell Distribution Width 15.9 % (11.0-16.0); White Blood Count 10.8 X10*3/uL (4.8-10.8)
[2022-01-24 10:22] LABS: Blood Urea Nitrogen 24 mg/dL (9-16); Calcium 8.9 mg/dL (8.4-10.2); Creatinine Clr Calc Pharmacy 98.8; Estimated Glomerular Filt Rate > 60; Glucose Random 135 mg/dL (60-115)
--- NOTE | 2022-01-24 10:28 | P.DS_ITS ---
DS: Providers Provider Date of Service: 01/24/22 Date of admission: 01/22/22 02:18 Date of discharge: 01/24/22 Primary care physician: Unknown Physician DS: Diagnosis Discharge Diagnosis (1) Community acquired pneumonia: Status: Acute DS: Summary Hospital Course Hospital Course: Presenting HPI: Chief Complaint: Dyspnea This is 51-year-old male with pertinent history of essential hypertension, mixed hyperlipidemia, status post aortic valve replacement on Coumadin, presents to the emergency department for evaluation of dyspnea.? Patient states he has been having cough for the last 1 week but over the last 4 days it has progressed with yellowish sputum production.? Also has been having progressive dyspnea, worse with exertion.? Does not use oxygen at home.? Has associated fever and chills and generalized malaise.? Patient denies chest discomfort, palpitations, abdominal pain, changes in urinary or bowel habits. In the emergency department, patient was found to be febrile and hypoxemic. Hospital Course Patient was treated with IV antibiotics: Ceftriaxone and azithromycin, and placed on supplemental oxygen. By day two patient was already feeling much better, less SOB, less dyspnea, less cough, and already weaned off of supple mental O2. INR was initially supratherapeutic and 5.7, and then again at 3.8; Coumadin was for held for both of these days and then restarted at 3 mg on 01/24 when is INR was within therapeutic range. On the night of 01/22-01/23, patient had 2 episodes of diarrhea; C diff and stool sample was negative and diarrhea resolved. Patient has been able to ambulate independently without shortness of breath. Still occasional cough but overall patient feels much better without any difficulty breathing and wishes to be discharged. Status at Discharge Functional status at discharge: independent ambulation Overall status at discharge: patient is progressing back to baseline Time Spent with Patient Time attestation: Total time managing care of this patient today ____ minutes. Discharge coordination time: Greater than 30 minutes Quality: Safe Use of Opioids Does Pt have an Active Cancer Diagnosis on the Problem List?: No Quality: Stroke Does the patient have a stroke diagnosis?: No Physical Exam Vital Signs: Vital Signs: Last Vital Signs Temp 98.2 F 01/24/22 07:29 Pulse 71 01/24/22 07:29 Resp 17 01/24/22 07:29 BP 155/86 H 01/24/22 07:29 Pulse Ox 93 01/24/22 07:29 O2 Del Method 01/24/22 07:29 O2 Flow Rate 2 01/22/22 08:56 BMI result Body Mass Index 36.6 General: AOx3, no acute distress Resp: Diffuse inspiratory and expiratory crackles bilaterally, better than yesterday; no audible wheezing CVS: S1, S2, RRR GI: +BS, NT, no distention Skin: No rash Neuro: Motor grossly intact Psych: Appropriate affect DS: Data Data Completed and Pending Labs on day of discharge: Laboratory Results - last 24 hr 01/23/22 01/23/22 01/23/22 05:02 10:15 10:15 WBC RBC Hgb Hct MCV MCH MCHC RDW Plt Count MPV Absolute Nucleated RBC Nucleated RBC % (auto) PT INR Sodium 140 Potassium 5.2 H D Chloride 108 Carbon Dioxide 21 L Anion Gap 16 BUN 24 H Creatinine 0.80 Estim Creat Clear Calc 117.3 Estimated GFR > 60 Random Glucose 94 Calcium 8.7 Total Bilirubin 0.5 AST 122 H ALT 183 H Alkaline Phosphatase 141 H Total Protein 6.2 L Albumin 3.4 L Stl C. cayetanensis PCR Not Detected Stool Rotavirus A PCR Not Detected Stl Adenov F 40/41 PCR Not Detected Stool Astrovirus (PCR) Not Detected Stool Campylobacter PCR Not Detected Stool Cryptosporidium PCR Not Detected Stl Sh Tox Pr E STEC PCR Not Detected Stool E coli O157 PCR Not applicable Stl Enterotoxigenic E PCR Not Detected Stool EPEC (PCR) Not Detected Stool EAEC (PCR) Not Detected Stl E. histolytica PCR Not Detected Stool Giardia Lamblia PCR Not Detected Stl P. shigelloides PCR Not Detected Stool Salmonella PCR Not Detected Stool Sapovirus (PCR) Not Detected Stl Shigella/EIEC PCR Not Detected St Y.enterocolitica PCR Not Detected Stool Vibrio (PCR) Not Detected Stl Vibrio cholerae PCR Not Detected Stl Norovirus GI/GII PCR Not Detected C. difficile Tox B Gene NEGATIVE 01/24/22 01/24/22 01/24/22 05:10 08:55 08:55 WBC 10.8 RBC 5.20 Hgb 12.5 L Hct 41.1 L MCV 79.0 L MCH 24.0 L MCHC 30.4 L RDW 15.9 Plt Count 319 D MPV 12.4 Absolute Nucleated RBC 0.000 Nucleated RBC % (auto) 0.0 PT 31.6 H INR 2.6 H Sodium Potassium Chloride Carbon Dioxide Anion Gap BUN 24 H Creatinine 0.95 Estim Creat Clear Calc 98.8 Estimated GFR > 60 Random Glucose 135 H Calcium 8.9 Total Bilirubin AST ALT Alkaline Phosphatase Total Protein Albumin Stl C. cayetanensis PCR Stool Rotavirus A PCR Stl Adenov F 40/41 PCR Stool Astrovirus (PCR) Stool Campylobacter PCR Stool Cryptosporidium PCR Stl Sh Tox Pr E STEC PCR Stool E coli O157 PCR Stl Enterotoxigenic E PCR Stool EPEC (PCR) Stool EAEC (PCR) Stl E. histolytica PCR Stool Giardia Lamblia PCR Stl P. shigelloides PCR Stool Salmonella PCR Stool Sapovirus (PCR) Stl Shigella/EIEC PCR St Y.enterocolitica PCR Stool Vibrio (PCR) Stl Vibrio cholerae PCR Stl Norovirus GI/GII PCR C. difficile Tox B Gene Preliminary micro results at discharge 01/22/22 01:10 Blood Culture - Preliminary Blood - Venous No growth after 48 hours. 01/22/22 01:10 Blood Culture - Preliminary Blood - Venous No growth after 48 hours. Discharge Plan Discharge Anticipated Discharge Date/Time: 01/24/22 10:43 Patient Disposition: Home, Self-Care Discharge Diagnosis: Community acquired pneumonia Referrals: Physician,Melissa J [Primary Care Provider] - 1 Week Discharge Medications: New levofloxacin 500 mg tablet 500 mg PO DAILY Qty: 5 0RF Continued atorvastatin 40 mg tablet 1 tab PO DAILY metoprolol succinate 200 mg tablet extended release 24 hr 1 tab PO DAILY lisinopril 20 mg tablet 1 tab PO DAILY aspirin 81 mg tablet,delayed release (DR/EC) 1 tab PO DAILY warfarin 2 mg tablet 4 mg PO Q48H warfarin 2 mg tablet 3 mg PO Q48H Discharge Orders: Discharge Order (Routine); Ordered 01/24/22 Ordered By: Nan Owens Diet: Advance to usual diet Activity on Discharge: As tolerated Stand Alone Forms: Patient Portal Discharge page Care Plan Goals: Full recover from community pneumonia Resume all home meds Health Concerns: Monitor for shortness of breath Return to the ED if shortness of breath returned Plan of Treatment: Complete full course of antibiotics for pneumonia Follow-up with PCP in 1 week Assessment: See discharge summary Patient Instructions: Pneumonia (DC)
[2022-01-24 10:40] LABS: Anion Gap 13 (12-20); Carbon Dioxide 27 mmol/L (22-29); Chloride 104 mmol/L (96-108); Sodium 140 mmol/L (135-145)
--- NOTE | 2022-01-30 05:17 | P.CDIR_ITS ---
Retrospective Query PHYSICIAN'S DOCUMENTATION REQUEST Date of Query: 01/30/22 0517 Patient Name: Chaim Cox Admit Date: 01/22/22 Dear Doctor, A review of the medical record indicates additional documentation may be needed. Please review below and update the documentation accordingly. Clinical Indicators: Risk Factors/Clinical Indicators/Treatments PN 01/23 - Assessment/plan: Acute hypoxic respiratory failure secondary to community acquired pneumonia. WBC 21.6 from 13.2, LA wnl, Temp 101.7 IV Ceftriaxone and Azithromyin, supplemental oxygen. Please clarify based on the above if: Sepsis secondary to Community Acquired Pneumonia, poa, resolved etc. Other Unable to determine Use of terms such as suspected, likely, concern for, or probable (associated with a specific diagnosis that is being evaluated, monitored, or treated as if it exists) are acceptable and can be coded in the inpatient setting, when documented at the time of discharge. Thank you, Diamond Villa [facility], CDIS Extension: [phone] Please use your independent medical judgment in providing your response. THIS QUERY IS PART OF THE PERMANENT MEDICAL RECORD
== END 2022-01-24 11:53 | disposition home or self-care (01) | DRG 720 ==
LOC: HO.ED 01-22 01:12 → HO.EDOVER 01-22 02:24 → HO.S3 01-22 14:20
PROVIDERS: Internal Medicine; Admitting Provider Student in an Organized Health Care Education/Training Program; Emergency Provider Internal Medicine; Visit Provider Student in an Organized Health Care Education/Training Program
DX: A41.9 Sepsis, unspecified organism (principal); J96.01 Acute respiratory failure with hypoxia; I11.0 Hypertensive heart disease with heart failure; J18.9 Pneumonia, unspecified organism; I50.9 Heart failure, unspecified; R79.1 Abnormal coagulation profile; E78.2 Mixed hyperlipidemia; E66.9 Obesity, unspecified; Z68.36 Body mass index [BMI] 36.0-36.9, adult; G47.33 Obstructive sleep apnea (adult) (pediatric); Z20.822 Contact with and (suspected) exposure to COVID-19; Z95.2 Presence of prosthetic heart valve; Z79.01 Long term (current) use of anticoagulants; Z87.891 Personal history of nicotine dependence; Z88.0 Allergy status to penicillin; Z79.82 Long term (current) use of aspirin; Z79.899 Other long term (current) drug therapy
CPT/HCPCS: 0241U; 36415; 71045; 71046; 80048; 80053; 83605; 83880; 84484; 85025; 85027; 85610; 85652; 85730; 86140; 87040; 87493; 87507; 93005; 94640; 94660; 99285; J0456; J0692; J0696; J2930; J3370

== ENCOUNTER 2022-06-03 11:15 | Emergency (ER) | payer BC, SELFPAY ==
[2022-06-03 11:24] VITALS: BP 167/84; PULSE 94; RESP 19; TEMP 36.6; O2SAT 97; BMI 35.6
--- NOTE | 2022-06-03 11:28 | ED_ITS ---
HPI - General Adult General Chief complaint: Back Pain/Injury Stated complaint: L leg pain Time Seen by Provider: 06/03/22 11:27 Source: patient, RN notes reviewed and old records reviewed Mode of arrival: ambulatory Limitations: no limitations History of Present Illness HPI narrative: 51-year-old male with past medical history significant for hypertension presents for evaluation of lower back pain. His symptoms started 2 days ago after he was ?trying to screw in part of a table. He reports his body was contorted He woke up the next day with worsening pain to his left lower back that radiates down his left leg. Denies any weakness. Denies any numbness or tingling No other complaints or concerns at this time. Patient's pain is 8/10. There was no trauma to the back Related Data Home Medications Medication Instructions Recorded Confirmed aspirin 81 mg tablet,delayed 1 tab PO DAILY 01/22/22 01/22/22 release atorvastatin 40 mg tablet 1 tab PO DAILY 01/22/22 01/22/22 lisinopril 20 mg tablet 1 tab PO DAILY 01/22/22 01/22/22 metoprolol succinate 200 mg 1 tab PO DAILY 01/22/22 01/22/22 tablet,extended release 24 hr warfarin 2 mg tablet 3 mg PO Q48H 01/22/22 01/22/22 warfarin 2 mg tablet 4 mg PO Q48H 01/22/22 01/22/22 Previous Rx's Medication Instructions Recorded levofloxacin 500 mg tablet 500 mg PO DAILY #5 tabs 01/24/22 dexamethasone 4 mg tablet 4 mg PO BID #6 tabs 06/03/22 tramadol 50 mg tablet 50 mg PO Q6H PRN severe pain 06/03/22 (scale score 7-10) #12 tabs Allergies Allergy/AdvReac Type Severity Reaction Status Date / Time Penicillins AdvReac Unknown Verified 06/03/22 11:24 Review of Systems Cardiovascular: Cardiovascular: Denies no additional cardiovascular complaints Respiratory: Respiratory: Denies no additional respiratory complaints Musculoskeletal: Musculoskeletal: Reports back pain, Denies numbness and Den ies tingling Neurologic: Denies numbness, Denies tingling and Denies paresthesias PMFSH Past Medical History Medical History (Updated 06/03/22 @ 11:33 by Chaim Rueda) HTN (hypertension) Hyperlipidemia (Unknown) Surgical History Aortic valve replaced Social History Social History Household Members: Family Housing: Apartment Do you presently have visiting nurse or other home services: No Patient Tobacco Use Status: Former Tobacco user Tobacco use type: Cigarette Cigarettes Per Day: 3 Years Smoked: 40 Second Hand Smoke Exposure: Yes service: No Physical Exam ED Vital Signs: Vital Signs - 24 hr 06/03/22 11:24 Temperature 98 F Pulse Rate 94 Respiratory Rate 19 Blood Pressure 167/84 H Pulse Oximetry 97 Oxygen Delivery Method Room Air BMI result Body Mass Index 35.6 Const General: healthy appearing, comfortable, no acute distress, alert and awake Nutritional Appearance: well nourished Orientation/consciousness: patient oriented x3 HENMT Head: Yes normocephalic and Yes atraumatic Throat: Yes posterior oropharynx normal Eyes Eyelids: Yes eyelids normal Conjunctivae: conjunctivae normal Sclerae: sclerae normal Corneas: corneas normal Pupils: Equal, round and reactive pupils present EOM: EOMs intact bilaterally Neck Neck: Yes full ROM Resp Effort & Inspection: normal respiratory effort, able to speak in complete sentences, no audible wheezes and not labored Cardio Rate: regular rate Rhythm: regular rhythm Skin General skin exam: no rashes or lesions noted and elasticity normal Neuro General: patient oriented x3 Cranial nerves: Yes Equal, round and reactive pupils present and Yes Bilaterally intact EOM present Cognition (Neuro): normal cognition Extrem Other: Moving all extremities well without any obvious deformities Medical Decision Making Medical Decision Making MDM Narrative: 51-year-old male presents for evaluation of lower back that radiates down his left leg. This happened after twisting/wet stretching injury. There was no trauma, no indication for emergent imaging. No warning signs for cauda equina. We will treat as sciatica Differential Diagnosis Sciatica Lumbar radiculopathy Acute low back pain Muscle strain Discharge Plan Discharge Clinical Impression: Sciatica Patient Disposition: Home, Self-Care Instructions: Sciatica (ED) Additional Instructions: Take Decadron twice daily for the next 3 days. Use tramadol for breakthrough pain that is unrelieved with Tylenol This may make you sleepy, did not drink alcohol or drive after taking You may also use warm compresses Prescriptions: New dexamethasone 4 mg tablet 4 mg PO BID Qty: 6 0RF tramadol 50 mg tablet 50 mg PO Q6H PRN (Reason: severe pain (scale score 7-10)) Qty: 12 0RF No Action atorvastatin 40 mg tablet 1 tab PO DAILY metoprolol succinate 200 mg tablet extended release 24 hr 1 tab PO DAILY lisinopril 20 mg tablet 1 tab PO DAILY aspirin 81 mg tablet,delayed release (DR/EC) 1 tab PO DAILY warfarin 2 mg tablet 4 mg PO Q48H warfarin 2 mg tablet 3 mg PO Q48H levofloxacin 500 mg tablet 500 mg PO DAILY Qty: 5 0RF Stand Alone Forms: Work/School Release
== END 2022-06-03 11:42 | disposition home or self-care (01) ==
PROVIDERS: Emergency Provider Emergency Medicine Emergency Medical Services
DX: M54.42 Lumbago with sciatica, left side (principal); Z79.899 Other long term (current) drug therapy
CPT/HCPCS: 99282

== ENCOUNTER 2024-06-22 14:08 | Outpatient (REF) | payer BC, SELFPAY ==
--- OUTSIDE RECORDS SUMMARY | 2024-06-22 14:23 | XMS_ITS | Encounter Summary ---
Author Organization [employer] [facility] Address [address] [place] [address] Care Team Providers Care Coil Binder Name Role Phone Amber Rosen MD Primary Care Provider [phone] Reason for Visit * Reason Comments Med Refill Encounter Details Date Type Department Care Team (Late st Contact Info) Description 11/01/2022 Refill [facility] [address] [place] [address] [phone] Amber Rosen MD [address] [place] [address] [phone] Difficulty breathing; Asthma, unspecified asthma severity, unspecified whether complicated, unspecified whether persistent Social History Tobacco Use Types Packs/Day Years Used Date Smoking Tobacco: Every Day Cigarettes Passive Smoke Exposure: Past Alcohol Use Standard Drinks/Week Comments Not Currently 0 (1 standard drink = 0.6 oz pur e alcohol) Depression Answer Date Recorded Patient Health Questionnaire-9 Score 5 05/01/2022 Depression Answer Date Recorded Patient Health Questionnaire-2 Score 2 05/01/2022 Sex and Gender Information Value Date Recorded Sex Assigned at Male 12/11/2021 10:38 AM EDT Legal Sex Male 10:38 AM EDT Gender Identity Male 12/11/2021 10:38 AM EDT Sexual Orientation Straight 12/11/2021 10 :38 AM EDT documented as of this encounter Plan of Treatment Upcoming Encounters Date Type Department Care Team (Late st Contact Info) Description 07/14/2024 1:30 PM EDT Telemedicine [facility] [address] [place] [address] [phone] documented as of this encounter Visit Diagnoses Diagnosis Difficulty breathing Other dyspnea and respiratory abnormality Asthma, unspecified asthma severity, unspecified whether complicated, unspecified whether persistent documented in this encounter Additional Health Concerns Assessment Noted Time PHQ-9 Depression Total Score: 5 05/02/19 23 10:11 AM EDT documented as of this encounter Care Teams Coil Binder Relationship Specialty Start Date End Date Amber Rosen MD [address] [place] [address] PCP - General Family Medicine 01/26/22 documented as of this encounter
--- OUTSIDE RECORDS SUMMARY | 2024-06-22 14:23 | XMS_ITS | Encounter Summary ---
Author Organization [employer] Address [address] [place] [address] Care Team Providers Care Director Of Cardiopulmonary Services Name Role Phone Amber Rosen MD Primary Care Provider [phone] Encounter Details Date Type Department Care Team (Latest Contact Info) Description 06/22/2024 Travel Social History Tobacco Use Types Packs/Day Years Used Date Smoking Tobacco: Every Day Cigarettes Passive Smoke Exposure: Past Alcohol Use Standard Drinks/Week Comments Not Currently 0 (1 standard drink = 0.6 oz pur e alcohol) Depression Answer Date Recorded Patient Health Questionnaire-9 Score 0 06/22/2024 Patient Health Questionnaire-9 Score 0 06/22/2024 Last PHQ-9: Questionnaire Data Not on file 0 06/22/2024 Housing Stability Answer Date Recorded What is your housing situation today? I have amparo jo 06/22/[address] you li ve. Do you have problems with any of the following? None of the above 06/22/2024 Food Insecurity Answer Date Recorded Within the past 12 months, y ou worried that your food would run out before you got money to buy more: Never True 06/22/2024 Within the past 12 months,th e food you bought just didn't last and you didn't have enough money to get more: Never True 01/2025 Transportation Answer Date Recorded In the past 12 months, has l ack of transportation kept you from medical appts, meetings, work or from getting things needed for daily living? No 06/22/2024 Utilities Answer Date Recorded In the past 12 months, has t he electric, gas, oil or water company threatened to shut off services in your home? No 06/22/2024 Depression Answer Date Recorded Patient Health Questionnaire-2 Score 0 06/22/2024 Internet Access Answer Date Recorded Internet Access Q1 Yes 06/22/2024 Internet Access Q2 Not on file 06/22/2024 Sex and Gender Information Value Date Recorded Sex Assigned at Male 12/11/2021 10:38 AM EDT Legal Sex Male 10:38 AM EDT Gender Identity Male 12/11/2021 10:38 AM EDT Sexual Orientation Straight 12/11/2021 10 :38 AM EDT documented as of this encounter Plan of Treatment Upcoming Encounters Date Type Department Care Team (Late st Contact Info) Description 07/14/2024 1:30 PM EDT Telemedicine [facility] [address] [place] [address] documented as of this encounter Visit Diagnoses Not on filedocumented in this encounter Additional Health Concerns Assessment Noted Time PHQ-9 Depression Total Score: 0 06/23/19 25 2:04 PM EDT documented as of this encounter Care Teams Director Of Cardiopulmonary Services Relationship Specialty Start Date End Date Amber Rosen MD [address] [place] [address] PCP - General Family Medicine 01/26/22 documented as of this encounter
--- OUTSIDE RECORDS SUMMARY | 2024-06-22 14:23 | XMS_ITS | Encounter Summary ---
Author Organization [employer] Address [address] [place] [address] Care Team Providers Care Shank Breaker Name Role Phone Amber Rosen MD Primary Care Provider [phone] Encounter Details Date Type Department Care Team (Late st Contact Info) Description 06/22/2024 1:15 PM EDT Office Visit [facility] [address] [place], [place] [phone] Amber Rosen MD [address] [place], [place] [phone] Routine general medical examination at a health care facility (Primary Dx); TOMMY (obstructive sleep apnea); Asthma-COPD overlap syndrome (CMS/HCC); Primary hypertension; Heart murmur; H/O aortic valve replacement; Coronary artery disease involving enterprise coronary artery of enterprise heart, unspecified whether angina present; Longstanding persistent atrial fibrillation (CMS/HCC); Prediabetes; Vitiligo; Tobacco dependence; Smoking greater than 20 pack years; Major depressive disorder with single episode, remission status unspecified; History of stroke; History of diverticulitis; Dyslipidemia; On continuous oral anticoagulation; Routine screening for STI (sexually transmitted infection); Encounter for immunization Social History Tobacco Use Types Packs/Day Years [...] your housing situation today? I have amparo osorio 06/22/[address] you li [...] AM EDT documented as of this encounter Last Filed Vital Signs Vital Sign Reading Time Taken Comments Blood Pressure 158/92 06/22/2024 1:20 PM EDT Pulse 69 06/22/2024 1:20 PM EDT Temperature 36.4 ??C (97.5 ??F) 06/22/2024 1:20 PM ED T Respiratory Rate 22 06/22/2024 1:20 PM EDT Oxygen Saturation 96% 06/22/2024 1:20 PM EDT Inhaled Oxygen Concentration - - Weight 90.6 kg (199 lb 12.8 oz) 06/22/2024 1:20 PM EDT Height 167.6 cm (5' 6 ) 06/22/2024 1:20 PM EDT Body Mass Index 32.25 06/22/2024 1:20 PM EDT documented in this encounter Miscellaneous Notes * Assessment & Plan Note - Liseth Martinez MA - 06/22/2024 2:07 PM EDTAssociated Problem(s): Dyslipidemia Last Lipid Profile 05/01/22 TC 138; HDL 20; LDL 96; TG 120 -Pt is taking Atorvastatin 40mg -cont taking medication -cont working on lifestyle modifications * Assessment & Plan Note - Liseth Martinez MA - 06/22/2024 2:07 PM EDTAssociated Problem(s): Major depressive disorder, single episode, unspecified Pt has been taking Cymbalta -cont current medication -consider S referral in the future * Assessment & Plan Note - Liseth Martinez MA - 06/22/2024 2:07 PM EDTAssociated Problem(s): Smoking greater than 20 pack years - refer to lung cancer screening program in [facility] * Assessment & Plan Note - Liseth Martinez MA - 06/22/2024 2:06 PM EDTAssociated Problem(s): On continuous oral anticoagulation - Dx atrial fibrillation - he self-monitors INR - continue warfarin * Assessment & Plan Note - Liseth Martinez MA - 06/22/2024 2:06 PM EDTAssociated Problem(s): Vitiligo - evaluated by Dr. Patricia in Derm clinic - continue tacrolimus and triamcinolone topical as prescribed * Assessment & Plan Note - Liseth Martinez MA - 06/22/2024 2:05 PM EDTAssociated Problem(s): Tobacco dependence - Patient quit smoking in 2019 and started again; Recently, pt stopped smoking since having pneumonia - cont working on smoking cessation - pt declines varenicline or nicotine patch * Assessment & Plan Note - Liseth Martinez MA - 06/22/2024 2:05 PM EDTAssociated Problem(s): History of stroke -continue aspirin -continue warfarin -continue Atorvastatin -continue working on risk factor management -[id number] score 3 * Assessment & Plan Note - Liseth Martinez MA - 06/22/2024 2:02 PM EDTAssociated Problem(s): H/O aortic valve replacement - followed by [facility] cardiology - s/p aortic valve replacement in 1981 and 2018 - Ordered TTE since he has heart murmur; it has not been done it yet, but pt has an appt with smoked meat preparer on 10/10/22 - Continue lisinopril, atorvastatin and metoprolol * Assessment & Plan Note - Liseth Martinez MA - 06/22/2024 9:20 AM EDTAssociated Problem(s): Prediabetes 05/01/22 A1C 5.6 -continue working on lifestyle modifications * Assessment & Plan Note - Liseth Martinez MA - 06/22/2024 9:20 AM EDTAssociated Problem(s): Chronic pain of both knees Pt told he has arthritis in back and bilateral knees Pt referred to PT but hesitant to try. -Tried Tylenol and Ibuprofen including patch, and currently on gabapentin -Referred to Orthopedist for evaluation and management in April 2022; advised to reschedule appt * Assessment & Plan Note - Liseth Martinez MA - 06/22/2024 9:19 AM EDT Associated Problem(s): Left elbow pain -Improving. -Referred to orthopedist; advised to reschedule missed appt * Assessment & Plan Note - Liseth Martinez MA - 06/22/2024 9:19 AM EDTAssociated Problem(s): Generalized osteoarthrosis, involving multiple sites Pt told he has arthritis in back and bilateral knees Pt referred to PT but hesitant to try. -Tried Tylenol and Ibuprofen including patch, he would like to try other medications, will try Gabapentin -Will refer to Orthopedist for care and management * Assessment & Plan Note - Liseth Martinez MA - 06/22/2024 9:19 AM EDTAssociated Problem(s): Degenerative joint disease (DJD) of lumbar spine Recommended to try PT, pt is hesitant to try -Cont Tylenol, prn * Assessment & Plan Note - Liseth Martinez MA - 06/22/2024 9:18 AM EDTAssociated Problem(s): Coronary artery disease - cardiac cath in 2019 showed non-obstructive CAD * Assessment & Plan Note - Liseth Martinez MA - 06/22/2024 9:18 AM EDTAssociated Problem(s): Heart murmur - mid to late systolic - s/p ascending aortic aneurysm repair - s/p aortic valve replacement - TTE in Nov 2022 showed no significant aortic or mitral valve regurgitation * Assessment & Plan Note - Liseth Martinez MA - 06/22/2024 9:18 AM EDTAssociated Problem(s): Hypertension - Goal BP <140/90 per JNC-8, < 130/80 (Tx threshold > 140/90) per ACC/AHA guideline, BP elevated today -Continue Metoprolol succinate 200 mg daily -Continue Lisinopril 30 mg daily -Continue working on lifestyle modifications -Continue monitoring home BP -reduce sodium intake - Will call for BP check in 3 weeks, if his SBP is greater than 140, will increase lisinopril to 40mg 06/22/14 * Assessment & Plan Note - Liseth Martinez MA - 06/22/2024 9:17 AM EDTAssociated Problem(s): Atrial fibrillation (CMS/HCC) - Continue metoprolol - Continue Warfarin - followed by [facility] Anticoagulation clinic - pt tests INR at home * Assessment & Plan Note - Liseth Martinez MA - 06/22/2024 9:16 AM EDTAssociated Problem(s): Asthma-COPD overlap syndrome (CMS/HCC) -PFT in 2019 shows mild ventilatory defect; no obstructive disease -continue tiotropium -continue albuterol HFA prn - work on smoking cessation * Assessment & Plan Note - Liseth Martinez MA - 06/22/2024 9:15 AM EDTAssociated Problem(s): TOMMY (obstructive sleep apnea) - continue CPAP documented in this encounter Plan of Treatment Upcoming Encounters Date Type Department Care Team (Late st Contact Info) Description 07/14/2024 1:30 PM EDT Telemedicine [facility] [address] [place] [address] Scheduled Orders Name Type Priority Associated Diagnoses Orde r Schedule TSH with Reflex to Free T4 Lab Routine Primary hypertension Expected: 06/22/2024 (Approximate), Expires: 06/22/2025 Hemoglobin A1c Lab Routine Prediabetes Expected: 06/22/2024 (Approximate), Expires: 06/22/2025 Comprehensive Metabolic Panel Lab Routine Primary hypertension Expected: 06/22/2024 (Approximate), Expires: 06/22/2025 Lipid Panel with Reflex to Direct LDL Lab Routine Primary hypertension Expected: 06/22/2024 (Approximate), Expires: 06/22/2025 Albumin, Random Urine W/Creatinine Lab Routine Primary hypertension Expected: 06/22/2024 (Approximate), Expires: 06/22/2025 CBC auto differential Lab Routine Heart murmur Expected: 06/22/2024 (Approximate), Expires: 06/22/2025 Syphilis Screen Lab Routine Routine screening for STI (sexually transmitted infection) Expected: 06/22/2024 (Approximate), Expires: 06/22/2025 Hepatitis C Antibody with Reflex to HCV, RNA, Quantitative, Real-Time PCR Lab Routine Routine screening for STI (sexually transmitted infection) Expected: 06/22/2024 (Approximate), Expires: 06/22/2025 Hepatitis B Surface Antibody, Qualitative Lab Routine Routine screening for STI (sexually transmitted infection) Expected: 06/22/2024 (Approximate), Expires: 06/22/2025 Hepatitis B Core Antibody, Total Lab Routine Routine screening for STI (sexually transmitted infection) Expected: 06/22/2024 (Approximate), Expires: 06/22/2025 Chlamydia/N. Gonorrhoeae RNA, TMA, Urogenitial Microbiology Routine Routine screening for STI (sexually transmitted infection) Expected: 06/22/2024 (Approximate), Expires: 06/22/2025 HIV-1/2 Antigen and Antibodies, Fourth Generation, with Reflexes Lab Routine Routine screening for STI (sexually transmitted infection) Expected: 06/22/2024 (Approximate), Expires: 06/22/2025 Hepatitis B surface antigen, EIA Lab Routine Routine screening for STI (sexually transmitted infection) Expected: 06/22/2024 (Approximate), Expires: 06/22/2025 Hepatitis A Antibody, Total Lab Routine Routine screening for STI (sexually transmitted infection) Expected: 06/22/2024 (Approximate), Expires: 06/22/2025 documented as of this encounter Visit Diagnoses Diagnosis Routine general medical examination at a health care facility- Primary TOMMY (obstructive sleep apnea) Obstructive sleep apnea (adult) (pediatric) Asthma-COPD overlap syndrome (CMS/HCC) Primary hypertension Unspecified essential hypertension Heart murmur Undiagnosed cardiac murmurs H/O aortic valve replacement Coronary artery disease involving enterprise coronary artery of enterprise heart, unspecified whether angina present Longstanding persistent atrial fibrillation (CMS/HCC) Prediabetes Other abnormal glucose Vitiligo Tobacco dependence Tobacco use disorder Smoking greater than 20 pack years Major depressive disorder with single episode, remission status unspecified History of stroke Transient ischemic attack (TIA), and cerebral infarction without residual deficits History of diverticulitis Dyslipidemia Other and unspecified hyperlipidemia On continuous oral anticoagulation Routine screening for STI (sexually transmitted infection) Screening examination for venereal disease Encounter for immunization documented in this encounter Additional Health Concerns Assessment Noted Time PHQ-9 Depression Total Score: 0 06/23/19 25 2:04 PM EDT documented as of this encounter Care Teams Shank Breaker Relationship Specialty Start Date End Date Amber Rosen MD [address] [place] [id number] PCP - General Family Medicine 01/26/22 documented as of this encounter
--- OUTSIDE RECORDS SUMMARY | 2024-06-22 14:23 | XMS_ITS | Encounter Summary ---
Author Organization [employer] Address [address] [place] [address] Care Team Providers Care Bakelite Molder Name Role Phone Amber Rosen MD Primary Care Provider [phone] Reason for Visit * Reason Comments Med Change Request Encounter Details Date Type Department Care Team (Late st Contact Info) Description 06/11/2024 Refill [facility] [address] [place], [place] [phone] Mehreen Palmer ANP [address] [place], [place] [phone] Longstanding persistent atrial fibrillation (CMS/HCC); H/O aortic valve replacement Social History Tobacco Use Types Packs/Day Years Used Date Smoking Tobacco: Every Day Cigarettes Passive Smoke Exposure: Past Alcohol Use Standard Drinks/Week Comments Not Currently 0 (1 standard drink = 0.6 oz pur e alcohol) Depression Answer Date Recorded Patient Health Questionnaire-9 Score 5 05/01/2022 Housing Stability Answer Date Recorded What is your housing situation today? I have amparo osorio 11/26/[address] you li ve. Do you have problems with any of the following? None of the above 11/26/2022 Food Insecurity Answer Date Recorded Within the past 12 months, y ou worried that your food would run out before you got money to buy more: Never True 11/26/2022 Within the past 12 months,th e food you bought just didn't last and you didn't have enough money to get more: Never True Transportation Answer Date Recorded In the past 12 months, has l ack of transportation kept you from medical appts, meetings, work or from getting things needed for daily living? No 11/26/2022 Utilities Answer Date Recorded In the past 12 months, has t he electric, gas, oil or water company threatened to shut off services in your home? No 11/26/2022 Depression Answer Date Recorded Patient Health Questionnaire-2 [...] Info) Description 07/14/2024 1:30 PM EDT Telemedicine [facility] [address] [place] [address] documented as of this encounter Visit Diagnoses Diagnosis Longstanding persistent atrial fibrillation (CMS/HCC) H/O aortic valve replacement documented in this encounter Additional Health Concerns Assessment Noted Time PHQ-9 Depression Total Score: 5 05/02/19 23 10:11 AM EDT documented as of this encounter Care Teams Bakelite Molder Relationship Specialty Start Date End Date Amber Rosen MD [address] [place] [address] PCP - General Family Medicine 01/26/22 documented as of this encounter
--- OUTSIDE RECORDS SUMMARY | 2024-06-22 14:23 | XMS_ITS | Clinical Summary ---
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 20 tablet 02/09/20 23 Active atorvastatin (Lipitor) 40 MG tablet Take 1 tablet (40 mg) by mouth in the evening. 90 tablet 3 05/10/19 24 Active metoprolol succinate XL (Toprol-XL) 200 MG 24 hr tablet Take 1 tablet (200 mg) by mouth in the morning. Do not crush or chew. 90 tablet 3 05/10/19 24 Active tiotropium (Spiriva HandiHaler) [address] 1 capsule (18 mcg) into inhaler and inhale in the morning. 30 capsule 11 05/10/19 24 Active albuterol 108 (90 Base) MCG/ACT inhalerIndicati ons:Difficulty breathing,Asthm a, unspecified asthma severity, unspecified whether complicated, unspecified whether persistent Inhale 2 puffs every 4 (four) hours if needed for wheezing or shortness of breath. Maximum 8 puffs per day 54 g 1 05/14/19 24 Active lisinopril 30 MG tabletIndicatio ns:Primary hypertension TAKE 1 TABLET (30 MG) BY MOUTH IN THE MORNING 90 tablet 3 05/19/19 25 Active warfarin (Coumadin) 2 MG tabletIndicatio ns:Longstanding persistent atrial fibrillation (CMS/HCC),H/O aortic valve replacement TAKE UP TO 2 TABS BY MOUTH ONCE DAILY DIRECTED BY THE COUMADIN CLINIC. 60 tablet 1 06/16/19 25 Active amoxicillin (Amoxil) 500 MG capsule Take 4 caps 1 hour prior dental procedure 12 capsule 06/19/19 25 Active aspirin 81 MG EC tablet Take 1 tablet (81 mg) by mouth Once per day. 90 tablet 3 06/23/19 25 Active aspirin 81 MG EC tablet Take 1 tablet by mouth in the morning. 04/25/19 22 025 Discontinued(Re order (will not trigger notification to Pharmacy)) DULoxetine (Cymbalta) [address] capsule Take 1 capsule by mouth in the morning. 07/09/19 22 025 Discontinued(Me d list cleanup (will not trigger notification to Pharmacy)) triamcinolone (Kenalog) 0.1 % ointment Use BID on days 1-15 of each month. 60 g 1 11/27/19 23 025 Discontinued(Me d list cleanup (will not trigger notification to Pharmacy)) amoxicillin (Amoxil) 500 MG capsule Take 2g (4 tabs) 1 hour prior to dental procedure 4 capsule 02/09/20 23 025 Discontinued(Re order (will not trigger notification to Pharmacy)) tacrolimus (Protopic) 0.1 % ointment USE TWICE A DAY ON DAYS 16-30 OF EACH MONTH. 60 g 1 05/16/19 24 025 Discontinued(Me d list cleanup (will not trigger notification to Pharmacy)) warfarin (Coumadin) 2 MG tabletIndicatio ns:Longstanding persistent atrial fibrillation (CMS/HCC),H/O aortic valve replacement TAKE TAKE UP TO 2 TABS BY MOUTH ONCE DAILY DIRECTED BY THE COUMADIN CLINIC. 90 tablet 05/19/19 25 025 Discontinued acetaminophen (Tylenol) 500 MG tablet Take 1 tablet (500 mg) by mouth every 6 (six) hours if needed for mild pain for up to 10 days. 15 tablet 06/04/19 25 025 amoxicillin (Amoxil) 500 MG capsule Take 2g (4 tabs) 1 hour prior to dental procedure 4 capsule 06/06/19 25 025 Discontinued(Me d list cleanup (will not trigger notification to Pharmacy)) Active Problems Problem Noted Date Diagnosed Date Symptomatic irreversible pulpitis 06/08/2024 Pain, dental 06/08/2024 Smoking greater than 20 pack years 01/23/2023 Assessment & Plan (06/22/2024 2:07 PM EDT): - refer to lung cancer screening program in [facility] Assessment & Plan (01/23/2023 5:57 AM EST): - refer to lung cancer screening program in [facility] Coronary artery disease 01/23/2023 Assessment & Plan (06/22/2024 9:18 AM EDT): - cardiac cath in 2019 showed non-obstructive CAD Assessment & Plan (01/23/2023 6:11 AM EST): - cardiac cath in 2019 showed non-obstructive CAD Class 1 obesity due to exces s calories with serious comorbidity and body mass index (BMI) of 34.0 to 34.9 in adult 10/07/2022 Assessment & Plan (10/07/2022 6:59 AM EDT): - comorbidity: HTN; TOMMY; OA - work on lifestyle modifications Heart murmur 07/31/2022 Assessment & Plan (06/22/2024 9:18 AM EDT): - mid to late systolic - s/p ascending aortic aneurysm repair - s/p aortic valve replacement - TTE in Nov 2022 showed no significant aortic or mitral valve regurgitation Assessment & Plan (01/23/2023 6:08 AM EST): - mid to late systolic - s/p ascending aortic aneurysm repair - s/p aortic valve replacement - TTE in Nov 2022 showed no significant aortic or mitral valve regurgitation Assessment & Plan (07/31/2022 5:15 PM EDT): - mid to late systolic - aortic or mitral valve pathology? - evaluate with TTE Major depressive disorder, single episode, unspe cified 05/01/2022 Assessment & Plan (06/22/2024 2:07 PM EDT): Pt has been taking Cymbalta -cont current medication -consider [facility] referral in the future Assessment & Plan (05/01/2022 10:07 AM EDT): Pt has been taking Cymbalta -cont current medication -consider [facility] referral in the future Generalized osteoarthrosis, involving multiple s ites 05/01/2022 Assessment & Plan (06/22/2024 9:19 AM EDT): Pt told he has arthritis in back and bilateral knees Pt referred to PT but hesitant to try. -Tried Tylenol and Ibuprofen including patch, he would like to try other medications, will try Gabapentin -Will refer to Orthopedist for care and management Assessment & Plan (05/01/2022 10:56 AM EDT): Pt told he has arthritis in back and bilateral knees Pt referred to PT but hesitant to try. -Tried Tylenol and Ibuprofen including patch, he would like to try other medications, will try Gabapentin -Will refer to Orthopedist for care and management Left elbow pain 05/01/2022 Assessment & Plan (06/22/2024 9:19 AM EDT): -Improving. -Referred to orthopedist; advised to reschedule missed appt Assessment & Plan (07/31/2022 5:21 PM EDT): -Improving. -Referred to orthopedist; advised to reschedule missed appt Assessment & Plan (05/01/2022 10:56 AM EDT): -Improving. -Will evaluate for possible Gout. -Will refer to an Orthopedist. Chronic low back pain 05/01/2022 Assessment & Plan (01/07/2023 5:37 PM EST): -Pt had MRI many years ago, which is not available to us at this time -Pt told he has arthritis in back and bilateral knees -Pt referred to PT but hesitant to try. -Tried Tylenol and Ibuprofen including patch, and currently on Gabapentin; pt would like to stop gabapentin since it is not effective -Referred to Orthopedist; pt has not rescheduled appt Assessment & Plan (07/31/2022 5:21 PM EDT): -Pt had MRI many years ago, which is not available to us at this time -Pt told he has arthritis in back and bilateral knees -Pt referred to PT but hesitant to try. -Tried Tylenol and Ibuprofen including patch, and currently on Gabapentin -Referred to Orthopedist for care and management Assessment & Plan (05/02/2022 12:09 AM EDT): -Pt had MRI many years ago, which is not available to us at this time -Pt told he has arthritis in back and bilateral knees -Pt referred to PT but hesitant to try. -Tried Tylenol and Ibuprofen including patch, he would like to try other medications, will try Gabapentin -Will refer to Orthopedist for care and management Difficulty breathing 05/01/2022 Assessment & Plan (01/23/2023 6:02 AM EST): -b/l pneumonia in Jan 2022 -Hx tobacco use; quit since last hospitalization per pt -last chest CT angiogram 03/20/19 1. Resolving postsurgical changes related to ascending aortic aneurysm repair and aortic valve replacement. Small amount of residual fluid and stranding without loculation in anterior mediastinum. 2. No recurrent thoracic aortic aneurysm. 3. Resolution of bilateral lower lobe opacities, pleural effusions, and mediastinal lymphadenopathy. 4. Mild post inflammatory reticulonodularity throughout the dependent right lung. Small clusters of tree-in-bud nodularity in the peripheral right lung, likely mild bronchiolitis. - abnormal Nuclear stress test with MCPI in Oct 2022 - EF 55-60% in Nov 2022 Assessment & Plan (10/07/2022 7:07 AM EDT): -recheck CXR; consider evaluating with chest CTA or CT without contrast -b/l pneumonia in Jan 2022 -Hx tobacco use; quit since last hospitalization per pt -last chest CT angiogram 03/20/19 1. Resolving postsurgical changes related to ascending aortic aneurysm repair and aortic valve replacement. Small amount of residual fluid and stranding without loculation in anterior mediastinum. 2. No recurrent thoracic aortic aneurysm. 3. Resolution of bilateral lower lobe opacities, pleural effusions, and mediastinal lymphadenopathy. 4. Mild post inflammatory reticulonodularity throughout the dependent right lung. Small clusters of tree-in-bud nodularity in the peripheral right lung, likely mild bronchiolitis. -Will evaluate with Pulmonary Function Test Assessment & Plan (07/24/2022 4:10 PM EDT): -recheck CXR; consider evaluating with chest CTA or CT without contrast -b/l pneumonia in Jan 2022 -Hx tobacco use; quit since last hospitalization per pt -last chest CT angiogram 03/20/19 1. Resolving postsurgical changes related to ascending aortic aneurysm repair and aortic valve replacement. Small amount of residual fluid and stranding without loculation in anterior mediastinum. 2. No recurrent thoracic aortic aneurysm. 3. Resolution of bilateral lower lobe opacities, pleural effusions, and mediastinal lymphadenopathy. 4. Mild post inflammatory reticulonodularity throughout the dependent right lung. Small clusters of tree-in-bud nodularity in the peripheral right lung, likely mild bronchiolitis. -Will evaluate with Pulmonary Function Test Assessment & Plan (05/02/2022 12:05 AM EDT): -recheck CXR; consider evaluating with chest CTA or CT without contrast -b/l pneumonia in Jan 2022 -Hx tobacco use; quit since last hospitalization per pt -last chest CT angiogram 03/20/19 1. Resolving postsurgical changes related to ascending aortic aneurysm repair and aortic valve replacement. Small amount of residual fluid and stranding without loculation in anterior mediastinum. 2. No recurrent thoracic aortic aneurysm. 3. Resolution of bilateral lower lobe opacities, pleural effusions, and mediastinal lymphadenopathy. 4. Mild post inflammatory reticulonodularity throughout the dependent right lung. Small clusters of tree-in-bud nodularity in the peripheral right lung, likely mild bronchiolitis. Chronic pain of both knees 05/01/2022 Assessment & Plan (06/22/2024 9:20 AM EDT): Pt told he has arthritis in back and bilateral knees Pt referred to PT but hesitant to try. -Tried Tylenol and Ibuprofen including patch, and currently on gabapentin -Referred to Orthopedist for evaluation and management in April 2022; advised to reschedule appt Assessment & Plan (07/31/2022 5:20 PM EDT): Pt told he has arthritis in back and bilateral knees Pt referred to PT but hesitant to try. -Tried Tylenol and Ibuprofen including patch, and currently on gabapentin -Referred to Orthopedist for evaluation and management in April 2022; advised to reschedule appt Assessment & Plan (05/01/2022 10:57 AM EDT): Pt told he has arthritis in back and bilateral knees Pt referred to PT but hesitant to try. -Tried Tylenol and Ibuprofen including patch, he would like to try other medications, will try Gabapentin -Will refer to Orthopedist for care and management On continuous oral anticoagulation 05/01/2022 Assessment & Plan (06/22/2024 2:06 PM EDT): - Dx atrial fibrillation - he self-monitors INR - continue warfarin Assessment & Plan (01/23/2023 5:58 AM EST): - Dx atrial fibrillation - he self-monitors INR - continue warfarin History of stroke 04/29/2022 Assessment & Plan (06/22/2024 2:05 PM EDT): -continue aspirin -continue warfarin -continue Atorvastatin -continue working on risk factor management -[id number] score 3 Assessment & Plan (10/07/2022 7:02 AM EDT): -continue aspirin -continue warfarin -continue Atorvastatin -continue working on risk factor management -[id number] score 3 Assessment & Plan (07/31/2022 5:29 PM EDT): -continue aspirin -continue warfarin -continue Atorvastatin -continue working on risk factor management -[id number] score 3 Assessment & Plan (05/01/2022 10:05 AM EDT): -cont aspirin -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/ Hospital Receiving Clerk -cont Atorvastatin (lipitor) TOMMY (obstructive sleep apnea) 04/29/2022 Assessment & Plan (06/22/2024 9:15 AM EDT): - continue CPAP Assessment & Plan (01/07/2023 5:28 PM EST): - continue CPAP Assessment & Plan (10/07/2022 6:58 AM EDT): - continue CPAP; will check his adherence at next visit Pulmonary nodule 04/29/2022 Assessment & Plan (01/23/2023 6:00 AM EST): - will obtain last CT report and update if indicated - CT angiogram in 2019 did not mention of pulmonary nodules - will consider referring to lung cancer screening program at [facility] Assessment & Plan (10/07/2022 7:06 AM EDT): - will obtain last CT report and update if indicated Tobacco dependence 04/29/2022 Assessment & Plan (06/22/2024 2:05 PM EDT): - Patient quit smoking in 2019 and started again; Recently, pt stopped smoking since having pneumonia - cont working on smoking cessation - pt declines varenicline or nicotine patch Assessment & Plan (01/07/2023 5:35 PM EST): - Patient quit smoking in 2019 and started again; Recently, pt stopped smoking since having pneumonia - cont working on smoking cessation - pt declines varenicline or nicotine patch Assessment & Plan (10/07/2022 7:04 AM EDT): - Patient quit smoking in 2019 and started again; Recently, pt stopped smoking since having pneumonia - cont working on smoking cessation - pt declines varenicline or nicotine patch Assessment & Plan (07/24/2022 4:07 PM EDT): Patient quit smoking in 2019 and started again; Recently, pt stopped smoking since having pneumonia -cont working on smoking cessation -will consider evaluating with a PFT Assessment & Plan (05/01/2022 10:19 AM EDT): Patient quit smoking in 2019 and started again; Recently, pt stopped smoking since having pneumonia -cont working on smoking cessation -will consider evaluating with a PFT Asthma-COPD overlap syndrome 04/29/2022 Assessment & Plan (06/22/2024 9:16 AM EDT): -PFT in 2019 shows mild ventilatory defect; no obstructive disease -continue tiotropium -continue albuterol HFA prn - work on smoking cessation Assessment & Plan (01/23/2023 6:05 AM EST): -PFT in 2019 shows mild ventilatory defect; no obstructive disease -continue tiotropium -continue albuterol HFA prn - work on smoking cessation Assessment & Plan (10/07/2022 7:16 AM EDT): -PFT in 2019 shows mild ventilatory defect; no obstructive disease -restart albuterol HFA prn although pt may not need -will add LAMA as pt is still symptomatic and he smokes cigarettes -PFT is re-ordered -consider pulmonary referral Assessment & Plan (07/24/2022 4:07 PM EDT): -check CXR -PFT in 2019 shows mild ventilatory defect; no obstructive disease -restart albuterol HFA prn although pt may not need -consider pulmonary referral Assessment & Plan (05/02/2022 12:10 AM EDT): -check CXR -PFT in 2019 shows mild ventilatory defect; no obstructive disease -restart albuterol HFA prn although pt may not need -consider pulmonary referral Vitiligo 04/29/2022 Assessment & Plan (06/22/2024 2:06 PM EDT): - evaluated by Dr. Patricia in Derm clinic - continue tacrolimus and triamcinolone topical as prescribed Assessment & Plan (01/07/2023 5:35 PM EST): - evaluated by Dr. Patricia in Derm clinic - continue tacrolimus and triamcinolone topical as prescribed Assessment & Plan (10/07/2022 7:04 AM EDT): - refer to Derm clinic Degenerative joint disease (DJD) of lumbar spine 04/29/2022 Assessment & Plan (06/22/2024 9:19 AM EDT): Recommended to try PT, pt is hesitant to try -Cont Tylenol, prn Assessment & Plan (05/01/2022 10:10 AM EDT): Recommended to try PT, pt is hesitant to try -Cont Tylenol, prn History of diverticulitis 04/29/2022 Prediabetes 04/29/2022 Assessment & Plan (06/22/2024 9:20 AM EDT): 05/01/22 A1C 5.6 -continue working on lifestyle modifications Assessment & Plan (01/07/2023 5:33 PM EST): 05/01/22 A1C 5.6 -continue working on lifestyle modifications Assessment & Plan (10/07/2022 7:00 AM EDT): 05/01/22 A1C 5.6 -continue working on lifestyle modifications Assessment & Plan (07/31/2022 5:17 PM EDT): 05/01/22 A1C 5.6 -continue working on lifestyle modifications Atrial fibrillation 01/29/2022 Assessment & Plan (06/22/2024 9:17 AM EDT): - Continue metoprolol - Continue Warfarin - followed by [facility] Anticoagulation clinic - pt tests INR at home Assessment & Plan (01/07/2023 5:32 PM EST): - Continue metoprolol - Continue Warfarin - followed by [facility] Anticoagulation clinic - pt tests INR at home Assessment & Plan (10/07/2022 7:02 AM EDT): - Continue metoprolol - Continue Warfarin - followed by [facility] Anticoagulation clinic - pt tests INR at home Assessment & Plan (07/31/2022 5:12 PM EDT): - Continue Warfarin - followed by [facility] Anticoagulation clinic - pt tests INR at home Assessment & Plan (05/01/2022 10:05 AM EDT): Continue Warfarin -followed by [facility] Anticoagulation clinic -pt tests INR at home Assessment & Plan (01/29/2022 3:25 PM EST): On coumadin, checks INR weekly at home, last time was last week after discharge= 2.7 (goal is 2.5-3.5) Continue Coumadin 2mg/3mg alternated per coumadin clinic. Fu w them every 3-6m, INRs are checked at home as above FU w cardiology H/O aortic valve replacement 01/29/2022 Overview (05/01/2022): Followed by [facility] Cardiology -Pt had Aortic valve replacement in 1981 & 2018 Assessment & Plan (06/22/2024 2:02 PM EDT): - followed by [facility] cardiology - s/p aortic valve replacement in 1981 and 2018 - Ordered TTE since he has heart murmur; it has not been done it yet, but pt has an appt with outbound sales specialist on 10/10/22 - Continue lisinopril, atorvastatin and metoprolol Assessment & Plan (01/07/2023 5:31 PM EST): - previously followed by [facility] cardiology, upcoming appt - s/p aortic valve replacement in 1981 and 2018 - Ordered TTE since he has heart murmur; it has not been done it yet, but pt has an appt with outbound sales specialist on 10/10/22 - Continue lisinopril, atorvastatin and metoprolol Assessment & Plan (10/07/2022 7:02 AM EDT): - previously followed by [facility] cardiology, upcoming appt - s/p aortic valve replacement in 1981 and 2018 - Ordered TTE since he has heart murmur; it has not been done it yet, but pt has an appt with outbound sales specialist on 10/10/22 - Continue lisinopril, atorvastatin and metoprolol Assessment & Plan (07/31/2022 5:14 PM EDT): - previously followed by [facility] cardiology - s/p aortic valve replacement in 1981 and 2018 - He has not followed up with outbound sales specialist for a while - Will refer back - Order TTE since he has heart murmur - Continue lisinopril, atorvastatin and metoprolol Assessment & Plan (01/29/2022 3:26 PM EST): Sp AVR x 2, most recent one 3y ago. Obtain cardiology notes Continue lisinopril, atorvastatin and metoprolol Hypertension 01/29/2022 Assessment & Plan (06/22/2024 2:04 PM EDT): - Goal BP <140/90 per JNC-8, < 130/80 (Tx threshold > 140/90) per ACC/AHA guideline, BP elevated today -Continue Metoprolol succinate 200 mg daily -Continue Lisinopril 30 mg daily -Continue working on lifestyle modifications -Continue monitoring home BP -reduce sodium intake - Will call for BP check in 3 weeks, if his SBP is greater than 140, will increase lisinopril to 40 mg 06/22/14 Assessment & Plan (01/07/2023 5:31 PM EST): - Goal BP <140/90 per JNC-8, < 130/80 (Tx threshold > 140/90) per ACC/AHA guideline, BP elevated today -Continue Metoprolol succinate 200 mg daily -Increase Lisinopril 30 mg daily -Continue working on lifestyle modifications -Continue monitoring home BP -reduce sodium intake -follow up in 3 mo or sooner prn Assessment & Plan (10/07/2022 7:06 AM EDT): - Goal BP <140/90 per JNC-8, < 130/80 (Tx threshold > 140/90) per ACC/AHA guideline, BP elevated today -Continue Metoprolol succinate 200 mg daily - Continue Lisinopril 20 mg daily -Continue working on lifestyle modifications -Continue monitoring home BP -reduce sodium intake -follow up in 3 mo or sooner prn Assessment & Plan (07/31/2022 5:15 PM EDT): - Goal BP <140/90 per JNC-8, < 130/80 (Tx threshold > 140/90) per ACC/AHA guideline, BP elevated today -Continue Metoprolol and Lisinopril -encouraged to check BP at home -Cont working on lifestyle modifications -reduce sodium intake -follow up in 3 mo or sooner prn Assessment & Plan (05/01/2022 11:53 PM EDT): - Goal BP <140/90 per JNC-8, < 130/80 (Tx threshold > 140/90) per ACC/AHA guideline, BP elevated today -Cont Metoprolol and Lisinopril -Will send BP monitor to pharmacy for patient to start checking BP at home -Cont working on lifestyle modifications -reduce sodium intake Dyslipidemia Assessment & Plan (06/22/2024 2:07 PM EDT): Last Lipid Profile 05/01/22 TC 138; HDL 20; LDL 96; TG 120 -Pt is taking Atorvastatin 40mg -cont taking medication -cont working on lifestyle modifications Assessment & Plan (01/07/2023 5:35 PM EST): Last Lipid Profile 05/01/22 TC 138; HDL 20; LDL 96; TG 120 -Pt is taking Atorvastatin 40mg -cont taking medication -cont working on lifestyle modifications Assessment & Plan (10/07/2022 7:04 AM EDT): Last Lipid Profile 05/01/22 TC 138; HDL 20; LDL 96; TG 120 -Pt is taking Atorvastatin 40mg -cont taking medication -cont working on lifestyle modifications Assessment & Plan (07/24/2022 4:09 PM EDT): Last Lipid Profile 05/01/22 TC 138; HDL 20; LDL 96; TG 120 -Pt is taking Atorvastatin 40mg -cont taking medication -cont working on lifestyle modifications Assessment & Plan (05/01/2022 10:14 AM EDT): Last Lipid Profile 06/13/21: TC 171; TG 210; HDL 22; LDL 107 -Pt is taking Atorvastatin 40mg -cont taking medication -cont working on lifestyle modifications Encounters Date Type Department Care Team Description 06/22/2024 1:15 PM EDT Office Visit [facility] [address] [place], [place] [address] [address] Amber Rosen MD Routine general medical examination at a health care facility (Primary Dx); TOMMY (obstructive sleep apnea); Asthma-COPD overlap syndrome (CMS/HCC); Primary hypertension; Heart murmur; H/O aortic valve replacement; Coronary artery disease involving augustine coronary artery of augustine heart, unspecified whether angina present; Longstanding persistent atrial fibrillation (CMS/HCC); Prediabetes; Vitiligo; Tobacco dependence; Smoking greater than 20 pack years; Major depressive disorder with single episode, remission status unspecified; History of stroke; History of diverticulitis; Dyslipidemia; On continuous oral anticoagulation; Routine screening for STI (sexually transmitted infection); Encounter for immunization 06/22/2024 Travel 06/19/2024 Telephone [facility] [place] [place] [address] Amber Rosen MD CHART PREP 06/18/2024 8:00 AM EDT Office Visit [facility] [address] [place] [id number] Gregoria Milner Dental calculus (Primary Dx) 06/16/2024 Patient Outreach [facility] [address] [place] [id number] Amber Rosen MD Pre-visit Planning (Pre visit planning LVM ) 06/13/2024 Refill [facility] [place] [address] Mehreen Palmer ANP Longstanding persistent atrial fibrillation (CMS/HCC); H/O aortic valve replacement 06/11/2024 Refill [facility] [place] [address] Mehreen Palmer ANP Longstanding persistent atrial fibrillation (CMS/HCC); H/O aortic valve replacement 06/08/2024 1:00 PM EDT Office Visit [facility] [address] [place] [address] Demian Ling, DDS Symptomatic irreversible pulpitis (Primary Dx); Pain, dental 06/05/2024 Orders Only [facility] [address] [facility] [id number] Amber Rosen MD 06/03/2024 11:30 AM EDT Office Visit [facility] [address] [place] [address] Maria D Rodriguez, DDS Abfraction (Primary Dx); Tooth sensitivity to cold 05/17/2024 Refill [facility] [address] [place] [address] Amber Rosen MD Primary hypertension; Longstanding persistent atrial fibrillation (CMS/HCC); H/O aortic valve replacement from Last 3 Months Immunizations Name Administration Dates Next Due Moderna Covid-19 Vaccine 6+ Bivalent 01/29/2022 Pneumococcal Conjugate PCV 20 06/22/2024 Pneumococcal Polysaccharide PPSV23 05/22/1994 Td (adult), 5 Lf tetanus tox oid, preservative free, adsorbed 10/25/2012 Td (adult), unspecified 05/21/2000 Tdap 01/09/2022,09/25/2019,11/21/2010 Family History Medical History Relation Name Comments Diabetes Mother Hypertension Mother Relation Name Status Comments Mother Social History Tobacco Use Types Packs/Day Years Used Date Smoking Tobacco: Every Day Cigarettes Passive Smoke Exposure: Past Tobacco Cessation:Ready to Q uit: Not Asked; Counseling Given: Not Answered Alcohol Use Standard Drinks/Week Comments Not Currently [...] Orientation Straight 12/11/2021 10 :38 AM EDT Last Filed Vital Signs Vital Sign Reading [...] Mass Index 32.25 06/22/2024 1:20 PM EDT Plan of Treatment Upcoming Encounters Date Type Department Care Team (Late st Contact Info) Description 07/14/2024 1:30 PM EDT Telemedicine [facility] [address] [place] [address] [id number] Health Maintenance Due Date Last Done Comments Anal Pap 1969 CT Colonography 1969 Colonoscopy 1969 Colorectal Cancer Screening 1969 Dental Prophylaxis 1969 FIT DNA/Cologuard 1969 FIT 1969 FOBT 1969 HIV Screening 1969 Sigmoidoscopy 1969 Hepatitis C Screening 07/02/1987 Hepatitis A Vaccines (1 of 2 - Risk 2-dose series) 1988 Hepatitis B Vaccines (1 of 3 - 19+ 3-dose series) 1988 Zoster Vaccines (1 of 2) 07/02/2019 Diabetes: Hemoglobin A1C 05/02/2023 05/01/2022 COVID-19 Vaccine ( season) 2023 01/29/2022, 12/30/2020, 06/22/2020, Additional history exists Influenza Vaccine (#1) 2023 Dental Oral Exam 12/20/2024 06/18/2024 Dental X-Ray: Bitewings 06/19/2025 06/18/2024 Alcohol/Substance Use Screening 06/22/2025 06/22/2024 Depression Screening 06/22/2025 06/22/2024, 06/23/19 25 SDOH Screening 06/22/2025 06/22/2024 Tobacco Screening 06/22/2025 06/22/2024 Lipid Panel 05/02/2027 05/01/2022 Dental X-Ray: Full Mouth 06/20/2027 06/18/2024 DTaP/Tdap/Td Vaccines (5 - Td or Tdap) 01/10/2032 01/09/2022, 09/25/2019, 10/25/2012, Additional history exists RSV Patients and Patients Aged 60 years or older (1 - 1-dose 75+ series) 2044 Pneumococcal Vaccine: 50+ Years Completed 06/22/2024, 05/22/1994 HIB Vaccines Aged Out No longer eligi ble based on patient's age to complete this topic HPV Vaccines Aged Out No longer eligi ble based on patient's age to complete this topic IPV Vaccines Aged Out No longer eligi ble based on patient's age to complete this topic Meningococcal Vaccine Aged Out No jonny casandra eligible based on patient's age to complete this topic RSV under 20 months Aged Out No longe r eligible based on patient's age to complete this topic Rotavirus Vaccines Aged Out No longer eligible based on patient's age to complete this topic Procedures Procedure Name Priority Date/Time Associated Diagnosis Comments ORAL HYGIENE INSTRUCTIONS Routine 06/18/2024 8:00 AM EDT Dental calculus INTRAORAL - COMPLETE SERIES OF RADIOGRAPHIC IMAGES Routine 06/18/2024 8:00 AM EDT PERIODIC ORAL EVALUATION - ESTABLISHED PATIENT Routine 06/18/2024 8:00 AM EDT 21 EXTRACTION, ERUPTED TOOTH OR EXPOSED ROOT (ELEVATION/FORCEPS REMOVAL) Routine 06/08/2024 1:00 PM EDT CASE PRESENTATION, DETAILED AND EXTENSIVE TREATMENT PLANNING Routine 06/03/2024 11:30 AM EDT Abfraction INTRAORAL - PERIAPICAL FIRST RADIOGRAPHIC IMAGE Routine 06/03/2024 11:30 AM EDT Abfraction PALLIATIVE (EMERGENCY) TREATMENT OF DENTAL PAIN - MINOR PROCEDURE Routine 06/03/2024 11:30 AM EDT Abfraction HEMOGLOBIN A1C Routine 05/01/2022 10:47 AM EDT Primary hypertension LIPID PANEL WITH REFLEX TO DIRECT LDL Routine 05/01/2022 10:47 AM EDT Primary hypertension from Last 3 Months or Most Recently Relevant to Health Maintenance Results * (ABNORMAL) Lipid Panel with Reflex to Direct LDL (05/01/2022 10:47 AM EDT) Cholesterol, Total 138 <200 mg/dL [facility] HDL Cholesterol 20(L) > OR = 40 mg/dL [facility] Triglycerides 120 <150 mg/dL [facility] LDL Cholesterol 96 mg/dL (calc) [facility] Comment: Reference range: <100 Desirable range <100 mg/dL for primary prevention; ?? <70 mg/dL for patients with CHD or diabetic patients with > or = 2 CHD risk factors. LDL-C is now calculated using the Mariam calculation, which is a validated novel method providing better accuracy than the Friedewald equation in the estimation of LDL-C. Andres WILLOUGHBY et al. JANEEN. 2013;310(36): 6049-8907 (http://education.[facility].[employer]/faq/VHJ622) Chol/HDLC Ratio 6.9(H) <5.0 (calc) [facility] Non-HDL Cholesterol 118 <130 mg/dL (calc) [facility] Comment: For patients with diabetes plus 1 major ASCVD risk factor, treating to a non-HDL-C goal of <100 mg/dL (LDL-C of <70 mg/dL) is considered a therapeutic option. 05/01/2022 10:4 7 AM EDT 05/01/2022 10:47 AM EDT Narrative [facility] - 05/02/2022 9:10 PM EDT FASTING:NO FASTING: NO us Amber Rosen MD LAB BLOOD ORDERABLES Final Resul t [facility] [address], [place] [address] [facility] [address] [place] [address] * Hemoglobin A1c (05/01/2022 10:47 AM EDT) Hemoglobin A1c 5.6 <5.7 % of total Hgb [facility] Comment: For the purpose of screening for the presence of diabetes: <5.7% ? Consistent with the absence of diabetes 5.7-6.4% ?Consistent with increased risk for diabetes ?(prediabetes) > or =6.5% ??Consistent with diabetes This assay result is consistent with a decreased risk of diabetes. Currently, no consensus exists regarding use of hemoglobin A1c for diagnosis of diabetes in children. According to [place] Diabetes Association (ADA) guidelines, hemoglobin A1c <7.0% represents optimal control in non- diabetic patients. Different metrics may apply to specific patient populations. Standards of Medical Care in Diabetes(ADA). ?? Blood Venous blood specimen / Unknown 05/01/2022 10:47 AM EDT 05/01/2022 10:47 AM EDT Narrative [facility] - 05/02/2022 9:10 PM EDT FASTING:NO FASTING: NO us Amber Rosen MD LAB BLOOD ORDERABLES Final Resul t [facility] [address], [place] [address] [facility] [address] [place] [address] from Last 3 Months or Most Recently Relevant to Health Maintenance [place] [address] [place] [address] PPO [facility] Care Teams Lamp Shade Sewer Relationship Specialty Start Date End Date Amber Rosen MD [address] [place] [id number] PCP - General Family Medicine 01/26/22
--- OUTSIDE RECORDS SUMMARY | 2024-06-22 14:23 | XMS_ITS | Encounter Summary ---
Author Organization [employer] Address [address] [facility] 7t [place] [address] Care Team Providers Care Fryline Attendant Name Role Phone Amber Rosen MD Primary Care Provider [phone] Reason for Visit * Reason Comments Routine Cleaning Dental Exam Encounter Details Date Type Department Care Team (Late st Contact Info) Description 06/18/2024 8:00 AM EDT Office Visit [facility] [address] [place] [address] Gregoria Milner Dental calculus (Primary Dx) Social History Tobacco Use Types Packs/Day Years [...] Sign Reading Time Taken Comments Blood Pressure 138/76 06/18/2024 8:15 AM EDT Pulse - - Temperature - - Respiratory Rate - - Oxygen Saturation - - Inhaled Oxygen Concentration - - Weight - - Height - - Body Mass Index - - documented in this encounter Progress Notes * Fabiano Martini DMD - 06/18/2024 8:00 AM EDT C/C: dental exam. Pt need to be premedicated prior to dental procedure. Pt did not take any Abx fortoday visit I.O.E: gen plaque accumulation, root remnants #4,32, slight erythematous and edematous gingiva, missing lower posterior teeth E.O.E: wnl OCS: wnl Head and neck: wnl Radiographic: root remnants #4,32, gen slight periodontal bone loss Dx: gen chronic slight periodontitis, root remnants #4,32 Tx: prophy, recall exam, exo#4,32, /P Med: Amoxill. 500mg x 12 tabs (premedication) Alejandra * Gregoria Milner - 06/18/2024 8:00 AM EDT Patient ID: Chaim Cox is a 53 y.o. male. Time Out: Timeout Date: 06/18/24, Timeout Time: 813 (Dental Prophy Adult) Location: [facility] Tooth: Maxilla and Mandible Procedure: Exam and X-rays Verified the above with patient, medical receptionist assistant, and provider. Confirmed via patient's chart, intraorally and by radiographs. French Cord Binder: not applicable Medical Hx: Vitals: Blood pressure 138/76. Medications, Med Hx reviewed with patient and updated in chart. Treatment Provided Dental procedures in this visit D0120 - PERIODIC ORAL EVALUATION - ESTABLISHED PATIENT (Completed) Service provider: Fabiano Martini DMD Billing provider: Fabiano Martini DMD Instruments Used: None Fluoride: N/A Oral Cancer Screening: No lesions Head/Neck Exam: No Lesions Calculus: N/A Plaque: N/A Stain: N/A Bleeding: N/A Gingiva: N/A OH: Fair Perio Chart: Not Completed Oral hygiene instructions provided to patient including brushing technique and flossing. Recommendations: Glasgow two times daily, modified ortez technique, Floss daily, Electric toothbrush, Soft bristle toothbrush, Glasgow Tongue, Anti-sensitivity toothpaste Recall Frequency: 6 mo NV: As soon as possible. Patient needs premedication due to heart valve replacement that was done two times. Hygienist: Gregoria Milner RDH * Gregoria Milner - 06/18/2024 8:00 AM EDT Patient ID: Chaim Cox is a 53 y.o. male. Time Out: Timeout Date: 06/18/24, Timeout Time: 813 (Dental Prophy Adult) Location: [facility] Tooth: Maxilla and Mandible Procedure: Exam and X-rays Verified the above with patient, medical receptionist assistant, and provider. Confirmed via patient's chart, intraorally and by radiographs. French Cord Binder: not applicable Medical Hx: Vitals: Blood pressure 138/76. Medications, Med Hx reviewed with patient and updated in chart. Treatment Provided Dental procedures in this visit D0120 - PERIODIC ORAL EVALUATION - ESTABLISHED PATIENT (Completed) Service provider: Fabiano Martini DMD Billing provider: Fabiano Martini DMD D0210 - INTRAORAL - COMPLETE SERIES OF RADIOGRAPHIC IMAGES (Completed) Service provider: Gregoria Milner Billing provider: Fabiano Martini DMD D1330 - ORAL HYGIENE INSTRUCTIONS (Completed) Service provider: Gregoria Milner Billing provider: Fabiano Martini DMD Instruments Used: None Fluoride: N/A Oral Cancer Screening: No lesions Head/Neck Exam: No Lesions Oral hygiene instructions provided to patient including brushing technique and flossing. Recommendations: Glasgow two times daily, modified ortez technique, Floss daily, Electric toothbrush, Soft bristle toothbrush, [place] Tongue, Anti-sensitivity toothpaste Recall Frequency: 6 mo NV: As soon as possible. Patient needs premedication due to twice replaced heart valves. Hygienist: Gregoria Milner RD documented in this encounter Plan of Treatment Upcoming Encounters Date Type Department Care Team (Late st Contact Info) Description 07/14/2024 1:30 PM EDT Telemedicine [facility] [address] [place] [address] Scheduled Orders Name Type Priority Associated Diagnoses Orde r Schedule 4 4 EXTRACTION, ERUPTED TOOTH OR EXPOSED ROOT (ELEVATION/FORCEPS REMOVAL) Dental Routine [address] arting 06/18/2024 32 32 EXTRACTION, ERUPTED TOOTH OR EXPOSED ROOT (ELEVATION/FORCEPS REMOVAL) Dental Routine [address] arting 06/18/2024 31,30,21,20,19,18 31,30,21,20,19,18 MANDIBULAR PARTIAL DENTURE - RESIN BASE (INCLUDING, RETENTIVE/CLASPING MATERIALS, RESTS, AND TEETH) Dental Routine [address] arting 06/18/2024 PROPHYLAXIS - ADULT Dental Routine 1 Occ urrences starting 06/18/2024 BITE REGISTRATION Dental Routine 1 Occur rences starting 06/18/2024 documented as of this encounter Procedures Procedure Name Priority Date/Time Associated Diagnosis Comments PERIODIC ORAL EVALUATION - ESTABLISHED PATIENT Routine 06/18/2024 8:00 AM EDT ORAL HYGIENE INSTRUCTIONS Routine 2024 8:00 AM EDT Dental calculus INTRAORAL - COMPLETE SERIES OF RADIOGRAPHIC IMAGES Routine 06/18/2024 8:00 AM EDT documented in this encounter Visit Diagnoses Diagnosis Dental calculus- Primary Accretions on teeth documented in this encounter Additional Health Concerns Assessment Noted Time PHQ-9 Depression Total Score: 5 05/02/19 23 10:11 AM EDT documented as of this encounter Care Teams Fryline Attendant Relationship Specialty Start Date End Date Amber Rosen MD [address] [place] [address] PCP - General Family Medicine 01/26/22 documented as of this encounter
--- OUTSIDE RECORDS SUMMARY | 2024-06-22 14:23 | XMS_ITS | Encounter Summary ---
Author Organization [employer] Address [address] [facility] 7t [place] [address] Care Team Providers Care Social Work Specialist Name Role Phone Amber Rosen MD Primary Care Provider [phone] Reason for Visit * Reason Comments Med Refill Encounter Details Date Type Department Care Team (Late st Contact Info) Description 01/13/[address] [facility] [address] [place], [place] [phone] Meron Anderson MD [address] [place], [place] [phone] Longstanding persistent atrial fibrillation (CMS/HCC); H/O aortic [...] AM EDT documented as of this encounter Miscellaneous Notes * Telephone Encounter - Kimberly Maguire RN - 01/14/2023 2:56 PM EST Telephone call placed to pt to inquire where he has his inr drawn and who is dosing his coumadin. We can't send refill without this information. No answer, left v/m. If pt returns call please ask above questions, thanks! documented in this encounter Plan of Treatment Upcoming Encounters Date Type Department Care Team (Late st Contact Info) Description 07/14/2024 1:[address] [facility] [address] [place] [address] documented as of this encounter Visit Diagnoses Diagnosis Longstanding persistent atrial fibrillation (CMS/HCC) H/O aortic valve replacement documented in this encounter Additional Health Concerns Assessment Noted Time PHQ-9 Depression Total Score: 5 05/02/19 23 10:11 AM EDT documented as of this encounter Care Teams Social Work Specialist Relationship Specialty Start Date End Date Amber Rosen MD [address] [place] [address] PCP - General Family Medicine 01/26/22 documented as of this encounter
--- OUTSIDE RECORDS SUMMARY | 2024-06-22 14:23 | XMS_ITS | Encounter Summary ---
Author Organization [employer] Address 75 [facility] 7t [place] [address] Care Team Providers Care Belt Weaver Name Role Phone Amber Rosen MD Primary Care Provider [phone] Encounter Details Date Type Department Care Team (Late st Contact Info) Description 05/14/2023 Orders Only [facility] MEDICINE [address] [place], [place] [phone] Amber Rosen MD [address] [place], [place] [phone] Difficulty breathing; Asthma, unspecified asthma severity, unspecified [...] Info) Description 07/14/2024 1:30 PM EDT Telemedicine [facility] MEDICINE [address] [place] [address] documented as of this encounter Visit Diagnoses Diagnosis Difficulty breathing Other dyspnea and respiratory abnormality Asthma, unspecified asthma severity, unspecified whether complicated, unspecified whether persistent documented in this encounter Additional Health Concerns Assessment Noted Time PHQ-9 Depression Total Score: 5 05/02/19 23 10:11 AM EDT documented as of this encounter Care Teams Belt Weaver Relationship Specialty Start Date End Date Amber Rosen MD [address] [place] [address] PCP - General Family Medicine 01/26/22 documented as of this encounter
--- OUTSIDE RECORDS SUMMARY | 2024-06-22 14:23 | XMS_ITS | Encounter Summary ---
Author Organization [employer] Address [address] [facility] 7t [place] [address] Care Team Providers Care Licensed Dispensing Optician Name Role Phone Amber Rosen MD Primary Care Provider [phone] Reason for Visit * Reason Onset Date Comments CHART PREP 06/19/2024 Encounter Details Date Type Department Care Team ([facility] st Contact Info) Description 06/19/2024 Telephone [facility] MEDICINE [address] [place] [address] Amber Rosen MD [address] [place] [address] CHART PREP Social History Tobacco Use Types Packs/Day Years [...] encounter Miscellaneous Notes * Telephone Encounter - Darcy Pleitez [place] - 06/19/2024 11:07 AM EDT Chart Prep Labs: not done from 01/23/23 Images: not applicable Referrals: not applicable Vaccines due: PCV20, Hep B, Hep A, and Zoster Screenings: colonoscopy Overdue care gaps: SBIRT, SDOH, PHQ-9, DORA-7, Oral health screening, Disability screen, and Tobacco documented in this encounter Plan of Treatment Upcoming Encounters Date Type Department Care Team (Late st Contact Info) Description 07/14/2024 1:30 PM EDT Telemedicine [facility] MEDICINE [address] [place] [address] documented as of this encounter Visit Diagnoses Not on filedocumented in this encounter Additional Health Concerns Assessment Noted Time PHQ-9 Depression Total Score: 5 05/02/19 23 10:11 AM EDT documented as of this encounter Care Teams Licensed Dispensing Optician Relationship Specialty Start Date End Date Amber Rosen MD [address] [place] [address] PCP - General Family Medicine 01/26/22 documented as of this encounter
--- OUTSIDE RECORDS SUMMARY | 2024-06-22 14:23 | XMS_ITS | Encounter Summary ---
Author Organization [email or web address] Address [address] [facility] 7t [place] [address] Care Team Providers Care Distribution Operations Supervisor Name Role Phone Amber Rosen MD Primary Care Provider [phone] Encounter Details Date Type Department Care Team (Late st Contact Info) Description 06/05/2024 Orders Only [facility] MEDICINE [address] [place], [place] [phone] Amber Rosen MD [address] [place], [place] [phone] Social History Tobacco Use Types Packs/Day Years [...] Info) Description 07/14/2024 1:30 PM EDT Telemedicine [facility] MEDICINE [address] [place] [address] documented as of this encounter Visit Diagnoses Not on filedocumented in this encounter Additional Health Concerns Assessment Noted Time PHQ-9 Depression Total Score: 5 05/02/19 23 10:11 AM EDT documented as of this encounter Care Teams Distribution Operations Supervisor Relationship Specialty Start Date End Date Amber Rosen MD [address] [place] [address] PCP - General Family Medicine 01/26/22 documented as of this encounter
--- OUTSIDE RECORDS SUMMARY | 2024-06-22 14:23 | XMS_ITS | Encounter Summary ---
Author Organization [employer] Address [address] [facility] 7t [place] [address] Care Team Providers Care Tobacco Sorter Name Role Phone Amber Rosen MD Primary Care Provider [phone] Reason for Visit * Reason Comments Med Change Request Encounter Details Date Type Department Care Team ([facility] st Contact Info) Description 05/10/2023 Refill [facility] MEDICINE [address] [place], [place] [phone] Jesus Chaudhry MD [address] [place], [place] [phone] Primary hypertension; Difficulty breathing; Asthma, unspecified asthma severity, unspecified whether complicated, unspecified whether persistent; Longstanding persistent atrial fibrillation (CMS/HCC); H/O aortic [...] EDT Telemedicine [facility] MEDICINE [address] [place] [address] documented as of this encounter Visit Diagnoses Diagnosis Primary hypertension Unspecified essential hypertension Difficulty breathing Other dyspnea and respiratory abnormality Asthma, unspecified asthma severity, unspecified whether complicated, unspecified whether persistent Longstanding persistent atrial fibrillation ([facility]) H/O aortic valve replacement documented in this encounter Additional Health Concerns Assessment Noted Time PHQ-9 Depression Total Score: 5 05/02/19 23 10:11 AM EDT documented as of this encounter Care Teams Tobacco Sorter Relationship Specialty Start Date End Date Amber Rosen MD [address] [place] [address] PCP - General Family Medicine 01/26/22 documented as of this encounter
[2024-06-22 16:19] LABS: Basophils Percent Auto 0.6 % (0-2); Eosinophils Absolute Auto 0.4 X10*3/uL (0.0-0.4); Eosinophils Percent Auto 5.5 % (0-4); Hematocrit 40.6 % (42.0-52.0); Hemoglobin 10.8 g/dl (14.0-18.0); Imm Gran Abs Auto 0.01 X10*3/uL (0.00-0.03); Imm Gran Pct Auto 0.2 % (0.0-0.4); Lymphocytes Absolute Auto 0.7 X10*3/uL (1.2-4.9); MANUAL DIFF FLAG SCAN; Mean Corpuscular HGB Conc 26.6 g/dl (31.0-36.0); Mean Corpuscular Hemoglobin 19.2 pg (27.0-33.0); Mean Corpuscular Volume 72.2 fL (80.0-98.0); Monocytes Absolute Auto 0.9 X10*3/uL (0.1-1.2); Monocytes Percent Auto 14.1 % (2-11); Neutrophils Absolute Auto 4.4 x10*3/uL (2.0-8.3); Neutrophils Percent Auto 68.6 % (45-73); Platelet Count 209 X10*3/uL (160-400); Red Blood Count 5.62 X10*6/uL (4.60-5.80); Red Cell Distribution Width 20.8 % (11.0-16.0); SCAN SMEAR FLAG 1; White Blood Count 6.4 X10*3/uL (4.8-10.8)
[2024-06-22 16:20] LABS: PLT ABN DIST 1
[2024-06-22 16:29] LABS: Estimated Average Glucose 120 mg/dL; Hemoglobin A1c % 5.8 % (<6.0); Total Hemoglobin (HGBA1C) 2893.6586 umol/L
[2024-06-22 16:48] LABS: Alanine Aminotransferase 39 U/L (0-40); Albumin Level 3.8 g/dL (3.5-5.0); Anion Gap 11 (12-20); Aspartate Amino Transferase 50 U/L (5-37); Bilirubin Total 0.9 mg/dL (0.0-1.0); Blood Urea Nitrogen 13 mg/dL (9-16); Calcium 8.9 mg/dL (8.4-10.2); Carbon Dioxide 27 mmol/L (22-29); Chloride 107 mmol/L (96-108); Cholesterol 107 mg/dL (<200); Estimated Glomerular Filt Rate > 60; Glucose Random 76 mg/dL (60-115); HDL Cholesterol 18 mg/dL (>40); LDL Cholesterol Calculated 73 mg/dL (<100); Potassium 4.2 mmol/L (3.3-5.1); Sodium 141 mmol/L (135-145); Total Protein 6.5 g/dL (6.5-8.0); Triglycerides 80 mg/dL (<150)
[2024-06-22 17:01] LABS: Alkaline Phosphatase 142 U/L (39-117); TSH reflex Free T4 1.67 uIU/mL (0.32-4.0)
[2024-06-22 17:32] LABS: SLIDE REVIEW VERIFIED
[2024-06-22 18:24] LABS: Reflex LDLD? No
[2024-06-22 18:57] LABS: CT PCR NOT DETECTED (Not Detect.); NG PCR NOT DETECTED (Not Detect.)
[2024-06-23 07:25] LABS: Hepatitis A Antibody IgG Nonreactive (Nonreactive); ~Hepatitis A Antibody IgG 0.59 S/CO (0.00-0.99)
[2024-06-23 07:27] LABS: Syphilis Screen Nonreactive (Nonreactive)
[2024-06-23 08:01] LABS: HBS Num1 2.01 mIU/mL (0-7.99); HBc Num1 0.13 S/CO (0.00-0.79); HBsAGNum1 0.42 S/CO (0.00-0.99); HIV AB/AG Nonreactive (Nonreactive); HIV Num 1 0.07 S/CO (0.00-0.99); Hepatitis B Core Antibody Nonreactive (Nonreactive); Hepatitis B Surface Antigen Negative (Negative); ~HepC Num1 0.15 S/CO (0.00-0.79); ~Hepatitis B Surface Antibody NONREACTIVE (Nonreactive); ~Hepatitis C Antibody Nonreactive (Nonreactive)
== END 2024-06-22 14:09 | disposition home or self-care (01) ==
LOC: HO.HHCL 14:08
PROVIDERS: Visit Provider Family Medicine
DX: I10 Essential (primary) hypertension (principal); R01.1 Cardiac murmur, unspecified; R73.03 Prediabetes
CPT/HCPCS: 80053; 80061; 83036; 84443; 85025; 86704; 86706; 86708; 86780; 86803; 87340; 87389; 87491; 87591

== ENCOUNTER 2024-08-06 13:33 | Outpatient (REF) | payer BC, SELFPAY ==
--- OUTSIDE RECORDS SUMMARY | 2024-08-06 16:22 | XMS_ITS | Encounter Summary ---
Author Organization [employer] Address [address] [facility] 7t [place] [address] Care Team Providers Care Odd Ticket Clerk Name Role Phone Amber Rosen MD Primary Care Provider [phone] Reason for Visit * Reason Comments Med Refill Encounter Details Date Type Department Care Team (Late st Contact Info) Description 01/13/2023 Refill [facility] MEDICINE [address] [place], [place] [phone] Meron Anderson MD [address] [place], [place] [phone] Longstanding persistent atrial fibrillation (CMS/HCC); H/O aortic [...] Care Team (Late st Contact Info) Description 09/14/2024 1:45 PM EDT Office Visit [facility] MEDICINE [address] [place] [address] Amber Rosen MD [address] [place] [address] documented as of this encounter Visit Diagnoses Diagnosis Longstanding persistent atrial fibrillation (CMS/HCC) H/O aortic valve replacement documented in this encounter Additional Health Concerns Assessment Noted Time PHQ-9 Depression Total Score: 5 05/02/19 23 10:11 AM EDT documented as of this encounter Care Teams Odd Ticket Clerk Relationship Specialty Start Date End Date Amber Rosen MD [address] [place] [address] PCP - General Family Medicine 01/26/22 documented as of this encounter
[2024-08-06 16:28] LABS: Hematocrit 36.6 % (42.0-52.0); Hemoglobin 10.1 g/dl (14.0-18.0); Immature Retic Fraction 13.7 % (2.3-13.4); Mean Corpuscular HGB Conc 27.6 g/dl (31.0-36.0); Mean Corpuscular Hemoglobin 19.8 pg (27.0-33.0); Mean Corpuscular Volume 71.8 fL (80.0-98.0); PLT CLUMP 1; Red Cell Distribution Width 19.4 % (11.0-16.0); Retic HGB Equivalent 20.6 pg (30.0-35.0); Reticulocyte Percent 1.7 % (0.5-1.8); Reticulocytes Absolute 0.089 X10*6/uL (0.026-0.095)
[2024-08-06 16:44] LABS: Iron 41 mcg/dL (45-160); Percent Iron Saturation 9 % (15-50); Total Iron Binding Capacity 462 mcg/dL (228-428); Unsaturated Iron Binding 421 ug/dL
[2024-08-06 16:57] LABS: Creatinine Urine 222.39 mg/dL; Microalbum/Creatinine Ratio Ur 32.3 ug/mg cr (<30)
[2024-08-06 17:09] LABS: Ferritin 21 ng/mL (20-250)
[2024-08-06 17:22] LABS: Folate 5.3 ng/mL (> or = 4.0); Vitamin B12 232 pg/mL (200-900)
[2024-08-06 18:09] LABS: SLIDE REVIEW MANUAL DIFF
[2024-08-06 18:14] LABS: Eosinophils Percent Manual 1 % (0-4); Large Platelet PRESENT; Lymphocytes Percent Manual 7 % (20-40); Monocytes Percent Manual 13 % (2-11); Neutrophils Percent Manual 79 % (45-73)
[2024-08-06 18:15] LABS: Ovalocytes 1+ (5-14) /OIF
[2024-08-06 18:16] LABS: Burr Cells 1+ (0-2) /OIF
[2024-08-06 18:17] LABS: Band Neutrophils Percent 0 % (3-5); Platelet Morphology Comment NORMAL; RBC Morphology NOTED
[2024-08-06 18:18] LABS: Eosinophils Absolute Manual 0.1 X10*3/uL (0.0-0.4); Lymphocytes Absolute Manual 0.4 X10*3/uL (1.2-4.9); Monocytes Absolute Manual 0.8 X10*3/uL (0.1-1.2); Platelet Count 139 X10*3/uL (160-400); White Blood Count 6.3 X10*3/uL (4.8-10.8)
[2024-08-06 18:19] LABS: Platelet Estimate DECREASED (NORMAL)
== END 2024-08-06 13:34 | disposition home or self-care (01) ==
LOC: HO.HHCL 13:33
PROVIDERS: PCP Family Medicine; Visit Provider Family Medicine
DX: D64.9 Anemia, unspecified (principal); I10 Essential (primary) hypertension
CPT/HCPCS: 36415; 82043; 82570; 82607; 82728; 82746; 83540; 85007; 85025; 85027; 85045

== ENCOUNTER 2024-09-14 14:20 | Outpatient (REF) | payer BC, SELFPAY ==
--- NOTE | ~2024-09-14 | XR_ITS ---
EXAMINATION: XR SHOULDER, LEFT CLINICAL INFORMATION: PAIN COMPARISON: None available. TECHNIQUE: AP external rotation, Grashey, scapular Y, and axillary views of the left shoulder. FINDINGS: Normal bone mineralization. No fracture, dislocation, or suspicious bone lesion. Normal alignment. The glenohumeral joint is normal. The AC joint is normal. There is a type II acromion. No undersurface spurring. The subacromial space is preserved. Remainder of the soft tissue and bony structures appear normal. There has been a prior median sternotomy. XR/XR shoulder LT min 2V IMPRESSION: Normal left shoulder. Electronically signed by: Woody Emmanuel MD 09/14/2024 04:45 PM EDT RP
--- OUTSIDE RECORDS SUMMARY | 2024-09-14 14:27 | XMS_ITS | Encounter Summary ---
Author Organization [employer] Address [address] [facility] 7t [place] [address] Care Team Providers Care Communications Tech Name Role Phone Amber Rosen MD Primary Care Provider [phone] Reason for Visit * Reason Comments Med Refill Encounter Details Date Type Department Care Team (Late st Contact Info) Description 01/13/2023 Refill [facility] MED[facility]INE [address] [place], [place] [phone] Meron Anderson MD [address] [place], [place] [phone] Longstanding persistent atrial fibrillation (CMS/HCC); H/O aortic [...] documented in this encounter Plan of Treatment Not on file documented as of this encounter Visit Diagnoses Diagnosis Longstanding persistent atrial fibrillation (CMS/HCC) H/O aortic valve replacement documented in this encounter Additional Health Concerns Assessment Noted Time PHQ-9 Depression Total Score: 5 05/02/19 23 10:11 AM EDT documented as of this encounter Care Teams Communications Tech Relationship Specialty Start Date End Date Amber Rosen MD [address] [place] [address] PCP - General Family Medicine 01/26/22 documented as of this encounter
== END 2024-09-14 14:21 | disposition home or self-care (01) ==
LOC: HO.HHCX 14:20
PROVIDERS: PCP Family Medicine; Visit Provider Family Medicine
DX: M25.512 Pain in left shoulder (principal)
CPT/HCPCS: 73030

== ENCOUNTER → 2024-09-14 14:51 | Outpatient (BNV) | payer BC, SELFPAY | PROVIDERS: PCP Family Medicine; Visit Provider Radiology Diagnostic Radiology | DX: M25.512 Pain in left shoulder (principal) | CPT/HCPCS: 73030 ==

== ENCOUNTER 2024-11-24 13:41 | Outpatient (REF) | payer BC, SELFPAY ==
--- OUTSIDE RECORDS SUMMARY | 2024-11-24 13:00 | XMS_ITS | Encounter Summary ---
Author Organization [employer] Address [address] [facility] 7t [place] [address] Care Team Providers Care Channel Rougher Name Role Phone Amber Rosen MD Primary Care Provider [phone] Encounter Details Date Type Department Care Team (Late st Contact Info) Description 11/24/2024 1:00 PM EDT Office Visit [facility] MEDICINE [address] [place], [place] [phone] Amber Rosen MD [address] [place], [place] [phone] Longstanding persistent atrial fibrillation (CMS/HCC) (HCC) (Primary Dx); Status post ablation of atrial flutter; Primary hypertension; H/O aortic valve replacement; Coronary artery disease involving wiyot coronary artery of wiyot heart, unspecified whether angina present; Anemia, unspecified type; Asthma-COPD overlap syndrome (CMS/HCC) (HCC); Smoking greater than 20 pack years; Tobacco dependence Social History Tobacco Use Types Packs/Day Years Used Date Smoking Tobacco: Former Cigarettes Passive Smoke Exposure: Past Tobacco Cessation:Counseling Given: Not Answered Alcohol Use Standard Drinks/Week [...] the past 12 months, has t he [employer], gas, oil or water company threatened to [...] Sign Reading Time Taken Comments Blood Pressure 134/80 11/24/2024 1:07 PM EDT Pulse 87 11/24/2024 1:07 PM EDT Temperature 36.2 C (97.1 F) 11/24/2024 1:07 PM EDT Respiratory Rate 20 11/24/2024 1:07 PM EDT Oxygen Saturation 96% 11/24/2024 1:07 PM EDT Inhaled Oxygen Concentration - - Weight 91.4 kg (201 lb 6.4 oz) 11/24/2024 1:07 P M EDT Height 167.6 cm (5' 6 ) 11/24/2024 1:07 PM EDT Body Mass Index 32.51 11/24/2024 1:07 PM EDT documented in this encounter Plan of Treatment Scheduled Orders Name Type Priority Associated Diagnoses Orde r Schedule CBC auto differential Lab Routine Anemia, unspecified type Expected: 11/24/2024 (Approximate), Expires: 11/24/2025 Lipid Panel with Reflex to Direct LDL Lab Routine Primary hypertension Expected: 11/24/2024 (Approximate), Expires: 11/24/2025 Comprehensive Metabolic Panel Lab Routine Primary hypertension Expected: 11/24/2024 (Approximate), Expires: 11/24/2025 Ferritin Lab Routine Anemia, unspecified type Expected: 11/24/2024 (Approximate), Expires: 11/24/2025 Iron And Total Iron Binding Capacity Lab Routine Anemia, unspecified type Expected: 11/24/2024, Expires: 11/24/2025 Vitamin B12 (Cobalamin) and Folate Panel, Serum Lab Routine Anemia, unspecified type Expected: 11/24/2024 (Approximate), Expires: 11/24/2025 Reticulocyte Count Lab Routine Anemia, unspecified type Expected: 11/24/2024, Expires: 11/24/2025 documented as of this encounter Visit Diagnoses Diagnosis Longstanding persistent atrial fibrillation (CMS/HCC) (HCC)- Primary Status post ablation of atrial flutter Other postprocedural status Primary hypertension Unspecified essential hypertension H/O aortic valve replacement Coronary artery disease involving wiyot coronary artery of wiyot heart, unspecified whether angina present Anemia, unspecified type Asthma-COPD overlap syndrome (CMS/HCC) (HCC) Smoking greater than 20 pack years Tobacco dependence Tobacco use disorder documented in this encounter Additional Health Concerns Assessment Noted Time PHQ-9 Depression Total Score: 0 06/23/19 25 2:04 PM EDT documented as of this encounter Care Teams Channel Rougher Relationship Specialty Start Date End Date Amber Rosen MD [address] [place] [id number] PCP - General Family Medicine 01/26/22 documented as of this encounter
--- OUTSIDE RECORDS SUMMARY | 2024-11-24 16:36 | XMS_ITS | Encounter Summary ---
Author Organization [employer] Address [address] [place] [address] 7t [place] [address] Care Team Providers Care Grain Elevator Man Name Role Phone Amber Rosen MD Primary Care Provider [phone] Reason for Referral * Consultation (Urgent) - Closed Specialty Diagnoses / Procedures Referred By Contac t Referred To Contact Sleep Medicine Diagnoses TOMMY (obstructive sleep apnea) Amber Rosen MD [address] [place] [address] Phone: tel: fax: [facility] Phone: tel: fax: Referral ID Status Reason Start Date Expiration Date V isits Requested Visits Authorized [id number] Closed Specialty Services Required 10/28/2024 10/28/2025 1 1 Encounter Details Date Type Department Care Team (Late st Contact Info) Description 10/28/2024 Orders Only [facility] MEDICINE [address] [place] [address] Amber Rosen MD [address] [place] [address] TOMMY (obstructive sleep apnea) (Primary Dx) Social History Tobacco Use Types Packs/Day Years Used Date Smoking Tobacco: Former Cigarettes Passive Smoke Exposure: Past Alcohol Use [...] as of this encounter Plan of Treatment Not on file documented as of this encounter Procedures Procedure Name Priority Date/Time Associated Diagnosis Comments AMB REFERRAL TO SLEEP MEDICINE Urgent 11/03/2024 TOMMY (obstructive sleep apnea) documented in this encounter Results * Referral to Sleep Medicine (11/03/2024) Amber Rosen MD OUTPATIENT REFERRAL ORDERABLES F inal Result documented in this encounter Visit Diagnoses Diagnosis TOMMY (obstructive sleep apnea)- Primary Obstructive sleep apnea (adult) (pediatric) documented in this encounter Additional Health Concerns Assessment Noted Time PHQ-9 Depression Total Score: 0 06/23/19 25 2:04 PM EDT documented as of this encounter Care Teams Grain Elevator Man Relationship Specialty Start Date End Date Amber Rosen MD [address] [place] [address] PCP - General Family Medicine 01/26/22 documented as of this encounter
--- OUTSIDE RECORDS SUMMARY | 2024-11-24 16:36 | XMS_ITS | Encounter Summary ---
Author Organization [employer] Address [address] [facility] 7t [place] [address] Care Team Providers Care Cadmium Plater Name Role Phone Amber Rosen MD Primary Care Provider [phone] Reason for Visit * Reason Comments Med Change Request Encounter Details Date Type Department Care Team (Late st Contact Info) Description 05/10/2023 Refill [facility] MEDICINE 230 [place], [place] [phone] Jesus Chaudhry MD [address] [place], [place] [phone] Primary hypertension; Difficulty breathing; Asthma, unspecified asthma [...] unspecified whether persistent Longstanding persistent atrial fibrillation (CMS/HCC) (HCC) H/O aortic valve replacement documented in this encounter Additional Health Concerns Assessment Noted Time PHQ-9 Depression Total Score: 5 05/02/19 23 10:11 AM EDT documented as of this encounter Care Teams Cadmium Plater Relationship Specialty Start Date End Date Amber Rosen MD [address] [place] [address] PCP - General Family Medicine 01/26/22 documented as of this encounter
--- OUTSIDE RECORDS SUMMARY | 2024-11-24 16:36 | XMS_ITS | Encounter Summary ---
Author Organization [employer] Address [address] [facility] 7t [place] [address] Care Team Providers Care Used Car Sales Supervisor Name Role Phone Amber Rosen MD Primary Care Provider [phone] Reason for Visit * Reason Comments Med Change Request Encounter Details Date Type Department Care Team (Late st Contact Info) Description 06/11/2024 Refill [facility] [address] [place], [place] [phone] Mehreen Palmer, ANP 230 [place], [place] [phone] Longstanding persistent atrial fibrillation (CMS/HCC); H/O aortic [...] Diagnoses Diagnosis Longstanding persistent atrial fibrillation (CMS/HCC) (HCC) H/O aortic valve replacement documented in this encounter Additional Health Concerns Assessment Noted Time PHQ-9 Depression Total Score: 5 05/02/19 23 10:11 AM EDT documented as of this encounter Care Teams Used Car Sales Supervisor Relationship Specialty Start Date End Date Amber Rosen MD [address] [place] [id number] PCP - General Family Medicine 01/26/22 documented as of this encounter
--- OUTSIDE RECORDS SUMMARY | 2024-11-24 16:36 | XMS_ITS | Encounter Summary ---
Author Organization [employer] Address [address] [facility] 7t [place] [address] Care Team Providers Care Yard Driver Name Role Phone Amber Rosen MD Primary Care Provider [phone] Reason for Visit * Reason Onset Date Comments chart prep 11/23/2024 Encounter Details Date Type Department Care Team ([facility] st Contact Info) Description 11/23/2024 Telephone [facility] MEDICINE 230 [place], [place] [phone] Amber Rosen MD [address] [place], [place] [phone] chart prep Social History Tobacco Use Types Packs/Day Years [...] encounter Miscellaneous Notes * Telephone Encounter - Rubin Murillo [place] - 11/23/2024 9:24 AM EDT Chart Prep Labs: done Images: done Referrals: complete Vaccines due: Covid, Flu, and Zoster Screenings: colonoscopy Overdue care gaps: Not applicable documented in this encounter Plan of Treatment Not on file documented as of this encounter Visit Diagnoses Not on filedocumented in this encounter Additional Health Concerns Assessment Noted Time PHQ-9 Depression Total Score: 0 06/23/19 25 2:04 PM EDT documented as of this encounter Care Teams Yard Driver Relationship Specialty Start Date End Date Amber Rosen MD [address] [place] [address] PCP - General Family Medicine 01/26/22 documented as of this encounter
--- OUTSIDE RECORDS SUMMARY | 2024-11-24 16:36 | XMS_ITS | Encounter Summary ---
Author Organization [employer] Address [address] [facility] 7t [place] [address] Care Team Providers Care Tools Developer Name Role Phone Amber Rosen MD Primary Care Provider [phone] Reason for Visit * Reason Comments Med Refill Encounter Details Date Type Department Care Team (Late st Contact Info) Description 01/13/[address] [facility] MEDICINE 230 [place], [place] [phone] Meron Anderson MD 230 [place], [place] [phone] Longstanding persistent atrial fibrillation (CMS/HCC); H/O aortic [...] documented as of this encounter Care Teams Tools Developer Relationship Specialty Start Date End Date Amber Rosen MD [address] [place] [address] PCP - General Family Medicine 01/26/22 documented as of this encounter
--- OUTSIDE RECORDS SUMMARY | 2024-11-24 16:36 | XMS_ITS | Encounter Summary ---
Author Organization [employer] Address [address] [facility] 7t [place] [address] Care Team Providers Care Refrigeration Engineer Name Role Phone Amber Rosen MD Primary Care Provider [phone] Encounter Details Date Type Department Care Team ([facility] st Contact Info) Description 08/27/2024 Orders Only [facility] MEDICINE 230 [place], [place] [phone] Amber Rosen MD 230 [place], [place] [phone] Social History Tobacco Use Types Packs/Day Years [...] documented as of this encounter Care Teams Refrigeration Engineer Relationship Specialty Start Date End Date Amber Rosen MD [address] [place] [id number] PCP - General Family Medicine 01/26/22 documented as of this encounter
--- OUTSIDE RECORDS SUMMARY | 2024-11-24 16:36 | XMS_ITS | Encounter Summary ---
Author Organization [employer] Address [address] [facility] 7t [place] [address] Care Team Providers Care Smelter Operator Name Role Phone Amber Rosen MD Primary Care Provider [phone] Encounter Details Date Type Department Care Team ([facility] st Contact Info) Description 05/14/2023 Orders Only [facility] MEDICINE 230 [place], [place] [phone] Amber Rosen MD 230 [place], [place] [phone] Difficulty breathing; Asthma, unspecified asthma severity, unspecified [...] documented as of this encounter Care Teams Smelter Operator Relationship Specialty Start Date End Date Amber Rosen MD [address] [place] [address] PCP - General Family Medicine 01/26/22 documented as of this encounter
--- OUTSIDE RECORDS SUMMARY | 2024-11-24 16:36 | XMS_ITS | Encounter Summary ---
Author Organization [employer] Address [address] [facility] 7t [place] [address] Care Team Providers Care Agronomy Professor Name Role Phone Amber Rosen MD Primary Care Provider [phone] Encounter Details Date Type Department Care Team ([facility] st Contact Info) Description 08/27/2024 Orders Only [facility] MEDICINE 230 [place], [place] [phone] Amber Rosen MD 230 [place], [place] [phone] Social History Tobacco Use Types Packs/Day Years [...] documented as of this encounter Care Teams Agronomy Professor Relationship Specialty Start Date End Date Amber Rosen MD [address] [place] [address] PCP - General Family Medicine 01/26/22 documented as of this encounter
--- OUTSIDE RECORDS SUMMARY | 2024-11-24 16:36 | XMS_ITS | Encounter Summary ---
Author Organization [employer] Address [address] [facility] 7t [place] [address] Care Team Providers Care Vault Custodian Name Role Phone Amber Rosen MD Primary Care Provider [phone] Encounter Details Date Type Department Care Team (Latest Contact Info) Description 11/24/2024 Travel Social History Tobacco Use Types Packs/Day [...] documented as of this encounter Care Teams Vault Custodian Relationship Specialty Start Date End Date Amber Rosen MD [address] [place] [address] PCP - General Family Medicine 01/26/22 documented as of this encounter
--- OUTSIDE RECORDS SUMMARY | 2024-11-24 16:36 | XMS_ITS | Encounter Summary ---
Author Organization [employer] Address [address] [facility] 7t [place] [address] Care Team Providers Care Precision Machinist Name Role Phone Amber Rosen MD Primary Care Provider [phone] Reason for Visit * Reason Comments Med Refill Encounter Details Date Type Department Care Team (Late st Contact Info) Description 11/01/2022 Refill [facility] MEDICINE 230 [place], [place] [phone] Amber Rosen MD [address] [place], [place] [phone] Difficulty breathing; Asthma, unspecified asthma severity, unspecified [...] documented as of this encounter Care Teams Precision Machinist Relationship Specialty Start Date End Date Amber Rosen MD [address] [place] [address] PCP - General Family Medicine 01/26/22 documented as of this encounter
--- OUTSIDE RECORDS SUMMARY | 2024-11-24 16:37 | XMS_ITS | Clinical Summary ---
Author Organization [employer] Address [address] [place] [address] Care Team Providers Care Eeo Officer Name Role Phone Amber Rosen MD Primary Care Provider [phone] Allergies Active Allergy Reactions Criticality Noted Date Comments Rosuvastatin Other 08/27/2024 He does not feel well when he takes it. Potential interaction with warfarin. Category C. Medications Blood Pressure Monitor kitIndications:P rimary hypertension Check blood pressure once daily and as needed 1 kit 05/02/19 23 Active acetaminophen (Tylenol) 500 MG tabletIndication s:Symptomatic irreversible pulpitis Take 1 tablet (500 mg) by mouth every 6 (six) hours if needed for mild pain for up to 20 doses. 20 tablet 02/09/20 23 Active albuterol 108 (90 Base) MCG/ACT inhalerIndicatio ns:Difficulty breathing,Asthma , unspecified asthma severity, unspecified whether complicated, unspecified whether persistent Inhale 2 puffs every 4 (four) hours if needed for wheezing or shortness of breath. Maximum 8 puffs per day 54 g 1 05/14/19 24 Active lisinopril 30 MG tabletIndication s:Primary hypertension TAKE 1 TABLET (30 MG) BY MOUTH IN THE MORNING 90 tablet 3 05/19/19 25 Active amoxicillin (Amoxil) 500 MG capsule Take 4 caps 1 hour prior dental procedure 12 capsule 06/19/19 25 Active aspirin 81 MG EC tablet Take 1 tablet (81 mg) by mouth Once per day. 90 tablet 3 06/23/19 25 Active warfarin (Coumadin) 2 MG tabletIndication s:Longstanding persistent atrial fibrillation (CMS/HCC) (HCC),H/O aortic valve replacement TAKE UP TO 2 TABS BY MOUTH ONCE DAILY DIRECTED BY THE COUMADIN CLINIC. 180 tablet 2 07/16/19 25 Active nicotine (Nicoderm CQ) 21 MG/24HR patch Place 1 patch on the skin 1 (one) time each day at the same time. 30 patch 2 07/30/19 25 Active Enoxaparin Sodium 150 MG/ML solution prefilled syringe Inject 140 mg under the skin Once per day. 07/30/19 25 Active ferrous sulfate (Fe Tabs) 325 (65 Fe) MG EC tablet Take 1 tablet (325 mg) by mouth every other day. Do not crush, chew, or split. 45 tablet 3 08/08/19 25 026 Active furosemide (Lasix) 20 MG tablet Take 1 tablet by mouth once daily 90 tablet 3 08/28/19 25 Active atorvastatin (Lipitor) 10 MG tablet Take 1 tablet (10 mg) by mouth Once per day. 90 tablet 3 08/28/19 25 026 Active metoprolol succinate XL (Toprol-XL) 200 MG 24 hr tablet TAKE 1 TABLET BY MOUTH IN THE MORNING DO NOT CRUSH OR CHEW 90 tablet 11/03/19 25 Active metoprolol succinate XL (Toprol-XL) 200 MG 24 hr tablet TAKE 1 TABLET (200 MG) BY MOUTH IN THE MORNING. DO NOT CRUSH OR CHEW. 90 tablet 08/04/19 25 025 Discontinued Active Problems Problem Noted Date Diagnosed Date Elevated liver enzymes 08/21/2024 Assessment & Plan (08/21/2024 2:06 PM EDT): - mild elevation - continue working on lifestyle modification - check lab periodically; ; consider US Dyspnea on exertion 08/06/2024 Assessment & Plan (09/16/2024 10:02 AM EDT): - Chronic heart failure, HFmrEF - Most recent acute on chronic heart failure episode in August 2024, required hospitalization and IV diuretic. Status post ablation of atrial flutter Assessment & Plan (09/15/2024 2:07 PM EDT): - ablation on 07/28/24 at [facility] Assessment & Plan (08/06/2024 5:37 AM EDT): - ablation on 07/28/24 at [facility] EP Anemia 08/06/2024 Symptomatic irreversible pulpitis 06/08/2024 Pain, dental 06/08/2024 Smoking greater than 20 pack years 01/23/2023 Assessment & Plan (09/16/2024 10:04 AM EDT): - referred to lung cancer screening program in [facility] Assessment & Plan (08/08/2024 9:15 AM EDT): - refer to lung cancer screening program in [facility] Assessment & Plan (06/22/2024 2:07 PM EDT): - refer to lung cancer screening program in [facility] Assessment & Plan (01/23/2023 5:57 AM EST): - refer to lung cancer screening program in [facility] Coronary artery disease 01/23/2023 Assessment & Plan (09/15/2024 2:06 PM EDT): - cardiac cath in 2019 showed non-obstructive CAD Assessment & Plan (08/08/2024 9:12 AM EDT): - cardiac cath in 2019 showed non-obstructive CAD Assessment & Plan (06/22/2024 9:18 AM EDT): [...] continuous oral anticoagulation 05/01/2022 Assessment & Plan (08/08/2024 9:14 AM EDT): - Dx atrial fibrillation - he self-monitors INR - continue warfarin Assessment & Plan (06/22/2024 2:06 PM EDT): - Dx atrial fibrillation - he self-monitors INR - continue warfarin Assessment & Plan (01/23/2023 5:58 AM EST): - Dx atrial fibrillation - he self-monitors INR - continue warfarin History of stroke 04/29/2022 Assessment & Plan (09/16/2024 10:03 AM EDT): -continue aspirin -continue warfarin -previously on atorvastatin, switching to rosuvastatin -continue working on risk factor management -[id number] score 3 Assessment & Plan (08/21/2024 2:03 PM EDT): -continue aspirin -continue warfarin -previously on atorvastatin, switching to rosuvastatin -continue working on risk factor management -[id number] score 3 Assessment & Plan (06/22/2024 2:05 PM EDT): -continue aspirin -continue warfarin -continue Atorvastatin -continue working on risk factor management -[id number] score 3 Assessment & Plan (10/07/2022 7:02 AM EDT): -continue aspirin -continue warfarin -continue Atorvastatin -continue working on risk factor management -[id number] score 3 Assessment & Plan (07/31/2022 5:29 PM EDT): -continue aspirin -continue warfarin -continue Atorvastatin -continue working on risk factor management -[id number]-GUSp score 3 Assessment & Plan (05/01/2022 10:05 AM EDT): -cont aspirin -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/ 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 And 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 -cont Atorvastatin (lipitor) TOMMY (obstructive sleep apnea) 04/29/2022 Assessment & Plan (08/08/2024 9:15 AM EDT): - continue CPAP Assessment & Plan (06/22/2024 9:15 AM EDT): - continue CPAP Assessment & Plan (01/07/2023 5:28 PM EST): - continue CPAP Assessment & Plan (10/07/2022 6:58 AM EDT): - continue CPAP; will check his adherence at next visit Pulmonary nodule 04/29/2022 Assessment & Plan (08/21/2024 2:02 PM EDT): - CT angiogram in 2019 did not mention of pulmonary nodules - referred to lung cancer screening program at [facility]; will check its status Assessment & Plan (01/23/2023 6:00 AM EST): - will obtain last CT report and update if indicated - CT angiogram in 2019 did not mention of pulmonary nodules - will consider referring to lung cancer screening program at [facility] Assessment & Plan (10/07/2022 7:06 AM EDT): - will obtain last CT report and update if indicated Tobacco dependence 04/29/2022 Assessment & Plan (09/16/2024 10:04 AM EDT): - Patient quit smoking in 2019 and started again; Recently, pt stopped smoking since having pneumonia, then started again - Patient has not smoked since July 2024 - cont working on smoking cessation - patient is currently using nicotine patch, since the hospitalization Assessment & Plan (08/21/2024 2:00 PM EDT): - Patient quit smoking in 2019 and started again; Recently, pt stopped smoking since having pneumonia, then started again - cont working on smoking cessation - patient is currently using nicotine patch, since the hospitalization Assessment & Plan (06/22/2024 2:05 PM EDT): [...] evaluating with a PFT Asthma-COPD overlap syndrome (CMS/HCC) Assessment & Plan (08/21/2024 2:01 PM EDT): -PFT in 2019 shows mild ventilatory defect; no obstructive disease -continue tiotropium -continue albuterol HFA prn - work on smoking cessation Assessment & Plan (06/22/2024 9:16 AM EDT): [...] diverticulitis 04/29/2022 Prediabetes 04/29/2022 Assessment & Plan (08/08/2024 9:14 AM EDT): - Hgb A1c 5.8% on 06/22/24 - 05/01/22 A1C 5.6 -continue working on lifestyle modifications Assessment & Plan (06/23/2024 5:03 PM EDT): - Hgb A1c 5.8% on 06/22/24 - 05/01/22 A1C 5.6 -continue working on lifestyle modifications Assessment & Plan (01/07/2023 5:33 PM EST): 05/01/22 A1C 5.6 -continue working on lifestyle modifications Assessment & Plan (10/07/2022 7:00 AM EDT): 05/01/22 A1C 5.6 -continue working on lifestyle modifications Assessment & Plan (07/31/2022 5:17 PM EDT): 05/01/22 A1C 5.6 -continue working on lifestyle modifications Atrial fibrillation ([facility]/HCC) 01/29/2022 Assessment & Plan (09/15/2024 2:06 PM EDT): - Continue metoprolol - Continue Warfarin - followed by [facility] Anticoagulation clinic - pt tests INR at home Assessment & Plan (08/08/2024 9:12 AM EDT): - Continue metoprolol - Continue Warfarin - followed by [facility] - pt tests INR at home Assessment & Plan (06/22/2024 9:17 AM EDT): - Continue metoprolol - Continue Warfarin - followed by [facility] - pt tests INR at home Assessment & Plan (01/07/2023 5:32 PM EST): - Continue metoprolol - Continue Warfarin - followed by [facility] - pt tests INR at home Assessment & Plan (10/07/2022 7:02 AM EDT): - Continue metoprolol - Continue Warfarin - followed by [facility] - pt tests INR at home Assessment & Plan (07/31/2022 5:12 PM EDT): - Continue Warfarin - followed by [facility] Anticoagulation clinic - pt tests INR at home Assessment & Plan (05/01/2022 10:05 AM EDT): Continue Warfarin -followed by [facility] -pt tests INR at home Assessment & Plan (01/29/2022 3:25 PM EST): On coumadin, checks INR weekly at home, last time was last week after discharge= 2.7 (goal is 2.5-3.5) Continue Coumadin 2mg/3mg alternated per coumadin clinic. Fu w them every 3-6m, INRs are checked at home as above FU w cardiology H/O aortic valve replacement 01/29/2022 Overview (05/01/2022): Followed by [facility] Cardiology -Pt had Aortic valve replacement in 1981 & 2018 Assessment & Plan (09/16/2024 10:01 AM EDT): - followed by [facility] cardiology - s/p aortic valve replacement in 1981 and 2018 - Ordered TTE since he has heart murmur; it has not been done it yet, but pt has an appt with bead machine operator on 10/10/22 Assessment & Plan (08/08/2024 9:13 AM EDT): - followed by [facility] cardiology - s/p aortic valve replacement in 1981 and 2018 - Ordered TTE since he has heart murmur; it has not been done it yet, but pt has an appt with bead machine operator on 10/10/22 - Continue lisinopril, atorvastatin and metoprolol Assessment & Plan (06/22/2024 2:02 PM EDT): - followed by [facility] cardiology - s/p aortic valve replacement in 1981 and 2018 - Ordered TTE since he has heart murmur; it has not been done it yet, but pt has an appt with bead machine operator on 10/10/22 - Continue lisinopril, atorvastatin and metoprolol Assessment & Plan (01/07/2023 5:31 PM EST): - previously followed by [facility] cardiology, upcoming appt - s/p aortic valve replacement in 1981 and 2018 - Ordered TTE since he has heart murmur; it has not been done it yet, but pt has an appt with bead machine operator on 10/10/22 - Continue lisinopril, atorvastatin and metoprolol Assessment & Plan (10/07/2022 7:02 AM EDT): - previously followed by [facility] cardiology, upcoming appt - s/p aortic valve replacement in 1981 and 2018 - Ordered TTE since he has heart murmur; it has not been done it yet, but pt has an appt with bead machine operator on 10/10/22 - Continue lisinopril, atorvastatin and metoprolol Assessment & Plan (07/31/2022 5:14 PM EDT): - previously followed by [facility] cardiology - s/p aortic valve replacement in 1981 and 2018 - He has not followed up with bead machine operator for a while - Will refer back - Order TTE since he has heart murmur - Continue lisinopril, atorvastatin and metoprolol Assessment & Plan (01/29/2022 3:26 PM EST): Sp AVR x 2, most recent one 3y ago. Obtain cardiology notes Continue lisinopril, atorvastatin and metoprolol Hypertension 01/29/2022 Assessment & Plan (09/16/2024 10:00 AM EDT): - Goal BP < 130/80 (Tx threshold > 140/90) per ACC/AHA guideline, BP elevated today -Continue Metoprolol succinate 200 mg daily -Continue Lisinopril 30 mg daily -Continue furosemide 20 mg daily (not as needed) -Continue working on lifestyle modifications -Continue monitoring home BP -reduce sodium intake - Will call for BP check in 3 weeks, if his SBP is greater than 140, will increase lisinopril to 40 mg 06/22/14 Assessment & Plan (08/21/2024 1:59 PM EDT): - Goal BP < 130/80 (Tx threshold > 140/90) per ACC/AHA guideline, BP elevated today -Continue Metoprolol succinate 200 mg daily -Continue Lisinopril 30 mg daily -Continue working on lifestyle modifications -Continue monitoring home BP -reduce sodium intake - Will call for BP check in 3 weeks, if his SBP is greater than 140, will increase lisinopril to 40 mg 06/22/14 Assessment & Plan (06/22/2024 2:04 PM EDT): [...] -reduce sodium intake Dyslipidemia Assessment & Plan (09/16/2024 10:03 AM EDT): Last Lipid Profile 06/22/24 TC 107; HDL 18; LDL 73; TG 80 -Currently on atorvastatin -previously on rosuvastatin 5 mg daily, patient had 2 side effects and there is potential drug interaction with warfarin -cont working on lifestyle modifications Assessment & Plan (08/21/2024 2:05 PM EDT): Last Lipid Profile 06/22/24 TC 107; HDL 18; LDL 73; TG 80 -previously on atorvastatin, switching to rosuvastatin 5 mg daily -cont working on lifestyle modifications Assessment & Plan (06/23/2024 5:05 PM EDT): Last Lipid Profile 06/22/24 TC 107; HDL 18; LDL 73; TG 80 -Pt is taking Atorvastatin 40mg -cont taking [...] Encounters Date Type Department Care Team Description 11/24/2024 1:00 PM EDT Office Visit [address] [address] Amber Rsoen MD Longstanding persistent atrial fibrillation (CMS/HCC) ([facility]) (Primary Dx); Status post ablation of atrial flutter; Primary hypertension; H/O aortic valve replacement; Coronary artery disease involving [place] coronary artery of [place] heart, unspecified whether angina present; Anemia, unspecified type; Asthma-COPD overlap syndrome (CMS/HCC) ([facility]); Smoking greater than 20 pack years; Tobacco dependence 11/24/2024 Travel 11/23/2024 Telephone [facility] [address] [place] [phone] Amber Rosen MD chart prep 10/31/[address] [address] Beverly Dickinson MD 10/28/2024 Orders Only [facility] [address] [place] [address] Amber Rosen MD TOMMY (obstructive sleep apnea) (Primary Dx) 10/07/2024 2:30 PM EDT Office Visit [facility] [address] [place], [place] [phone] Beth Moran, SHARON History of tooth extraction, unspecified edentulism class (Primary Dx) 10/07/[address] [address] Amber Rosen MD november09/24/2024 Telephone [facility] [address] [place] [address] Amber Rosen MD 09/23/2024 Telephone [facility] [address], [place] [phone] Amber Rosen MD 09/17/2024 Telephone [facility] [address] [place], [place] [phone] Amber Rosen MD lung screening 09/17/2024 Telephone [facility] [address] [place] [address] Amber Rosen MD 09/14/2024 1:45 PM EDT Office Visit [facility] [place] [phone] Amber Rosen MD Primary hypertension (Primary Dx); Longstanding persistent atrial fibrillation (CMS/HCC); H/O aortic valve replacement; Coronary artery disease involving [place] coronary artery of [place] heart, unspecified whether angina present; Dyslipidemia; Status post ablation of atrial flutter; Acute pain of left shoulder; Dyspnea on exertion; History of stroke; Tobacco dependence; Smoking greater than 20 pack years 09/14/2024 Orders Only [facility] [place] [phone] Amber Rosen MD 09/14/2024 Travel 09/11/2024 Telephone [facility] [place] [phone] Amber Rosen MD chartprep 09/04/2024 Patient Outreach [facility] [place] [phone] Amber Rosen MD Pre-visit Planning (Pre-visit planning - LVM ) 08/27/2024 Orders Only [facility] [place] [address] Amber Rosen MD 08/27/2024 Orders Only [facility] [place] [address] Amber Rosen MD 08/24/2024 Telephone [facility] [phone] Amber Rosen MD Lung Cancer Screening from Last 3 Months Immunizations Immunization Administration Dates Next Due Hep A, Adult 09/14/2024 Hep B, adult 09/14/2024,08/06/2024 Moderna Covid-19 Vaccine 6+ Bivalent 01/29/2022 Pfizer Covid-19 Vaccine 12+ 09/14/2024 Pneumococcal Conjugate PCV 20 06/22/2024 Pneumococcal Polysaccharide PPSV23 05/22/1994 Td (adult), 5 Lf tetanus tox oid, preservative free, adsorbed 10/25/2012 Td (adult), unspecified 10/25/2012,05/21/2000 Tdap 01/09/2022,09/25/2019,11/21/2010 Family History Medical History Relation [...] Mass Index 32.51 11/24/2024 1:07 PM EDT Plan of Treatment Health Maintenance Due Date Last Done Comments CT Colonography 1969 Colonoscopy 1969 Colorectal Cancer Screening 1969 Dental Prophylaxis 1969 FIT DNA/Cologuard 1969 FIT 1969 FOBT 1969 Sigmoidoscopy 1969 Zoster Vaccines (1 of 2) 07/02/2019 Influenza Vaccine (#1) 2024 Dental Oral Exam 12/20/2024 06/18/2024 Hepatitis B Vaccines (3 of 3 - 19+ 3-dose series) 02/05/2025 09/14/2024, 08/06/2024 Hepatitis A Vaccines (2 of 2 - Risk 2-dose series) 03/17/2025 09/14/2024 Dental X-Ray: Bitewings 06/19/2025 06/18/2024 Alcohol/Substance Use Screening 06/22/2025 06/22/2024 Depression Screening 06/22/2025 06/22/2024, 06/23/19 25 Diabetes: Hemoglobin A1C 06/22/2025 06/22/2024, 0302/2022 Disability Screening 06/22/2025 06/22/2024 SDOH Screening 06/22/2025 06/22/2024 Tobacco Screening 11/24/2025 11/24/2024 Dental X-Ray: Full Mouth 06/20/2027 06/18/2024 Lipid Panel 06/22/2029 06/22/2024, 05/01/2022 DTaP/Tdap/Td Vaccines (6 - Td or Tdap) 01/10/2032 01/09/2022, 09/25/2019, 10/25/2012, Additional history exists RSV Patients and Patients Aged 60 years or older (1 - 1-dose 75+ series) 2044 HIV Screening Completed 06/22/2024 Hepatitis C Screening Completed 06/22/2024 Pneumococcal Vaccine: 50+ Years Completed 06/22/2024, 05/22/1994 COVID-19 Vaccine Completed 09/14/2024, , 12/30/2020, Additional history exists Anal Pap Discontinued HIB Vaccines Aged Out No longer eligi ble based on patient's age to complete this topic HPV Vaccines Aged Out No longer eligi ble based on patient's age to complete this topic IPV Vaccines Aged Out No longer eligi ble based on patient's age to complete this topic Meningococcal B Vaccine Aged Out No l onger eligible based on patient's age to complete [...] MEDICINE Urgent 11/03/2024 TOMMY (obstructive sleep apnea) 32 EXTRACTION, ERUPTED TOOTH OR EXPOSED ROOT (ELEVATION/FORCEPS REMOVAL) Routine 10/07/2024 2:30 PM EDT 4 EXTRACTION, ERUPTED TOOTH OR EXPOSED ROOT (ELEVATION/FORCEPS REMOVAL) Routine 10/07/2024 2:30 PM EDT XR SHOULDER 2+ VIEWS LEFT Routine 09/14/2024 2:51 PM EDT HEPATITIS C AB W/REFL TO HCV RNA, QN, PCR Routine 06/22/2024 2:11 PM EDT Routine screening for STI (sexually transmitted infection) HIV 1/2 ANTIGEN/ANTIBODY, FOURTH GENERATION W/RFL Routine 06/22/2024 2:11 PM EDT Routine screening for STI (sexually transmitted infection) HEMOGLOBIN A1C Routine 06/22/2024 2:11 PM EDT Prediabetes LIPID PANEL WITH REFLEX TO DIRECT LDL Routine 06/22/2024 2:11 PM EDT Primary hypertension INTRAORAL - COMPLETE SERIES OF RADIOGRAPHIC IMAGES Routine 06/18/2024 8:00 AM EDT PERIODIC ORAL EVALUATION - ESTABLISHED PATIENT Routine 06/18/2024 8:00 AM EDT from Last 3 Months or Most Recently Relevant to Health Maintenance Results * Referral to Sleep Medicine (11/03/2024) Amber Rosen MD OUTPATIENT REFERRAL ORDERABLES F inal Result * XR Shoulder 2+ Views Left (09/14/2024 2:51 PM EDT) Anatomical Region Laterality Modality Upper Extremities, Shoulder Left Radi ographic Imaging 09/14/2024 2:51 PM EDT Narrative 09/14/2024 4:48 PM EDT [facility] [address] [place] [address] XRay Report Signed Patient: Chaim Cox MR#: [id number] : 1970 Acct:[id number] Age/Sex: 54 / M ADM Date: 09/14/24 Loc: HO.HHCX Attending Dr: Amber Rosen MD Ordering Physician: Amber Rosen MD Date of Service: 09/14/24 Procedure(s): XR shoulder LT min 2V Accession Number(s): [id number] cc: Amber Rosen MD EXAMINATION: XR SHOULDER, LEFT CLINICAL INFORMATION: PAIN COMPARISON: None available. TECHNIQUE: AP external rotation, Grashey, scapular Y, and axillary views of the left shoulder. FINDINGS: Normal bone mineralization. No fracture, dislocation, or suspicious bone lesion. Normal alignment. The glenohumeral joint is normal. The AC joint is normal. There is a type II acromion. No undersurface spurring. The subacromial space is preserved. Remainder of the soft tissue and bony structures appear normal. There has been a prior median sternotomy. XR/XR shoulder LT min 2V IMPRESSION: Normal left shoulder. Electronically signed by: Woody Emmanuel MD 09/14/2024 04:45 PM EDT Dictated By: Wodoy Emmanuel MD Signed By: <Electronically signed by Woody Emmanuel MD in OV> 09/14/241644 DD/ 1451 TD/TT: 09/14/24 1500 Live Study Manager: Procedure Note Donotjoseinterpreter, Image - 09/14/2024 [facility] [address] [place] [address] XRay Report Signed Patient: Chaim CoxMR#: [id number] : 1970Acct:[id number] Age/Sex: 54 / MADM Date: 09/14/24 Loc: HO.HHCX Attending Dr: Amber Rosen MD Ordering Physician: Amber Rosen MD Date of Service: 09/14/24 Procedure(s): XR shoulder LT min 2V Accession Number(s): [id number] cc: Amber Rosen MD EXAMINATION: XR SHOULDER, LEFT CLINICAL INFORMATION: PAIN COMPARISON: None available. TECHNIQUE: AP external rotation, Grashey, scapular Y, and axillary views of the left shoulder. FINDINGS: Normal bone mineralization. No fracture, dislocation, or suspicious bone lesion. Normal alignment. The glenohumeral joint is normal. The AC joint is normal. There is a type II acromion. No undersurface spurring. The subacromial space is preserved. Remainder of the soft tissue and bony structures appear normal. There has been a prior median sternotomy. XR/XR shoulder LT min 2V IMPRESSION: Normal left shoulder. Electronically signed by: Woody Emmanuel MD 09/14/2024 04:45 PM EDT Dictated By: Woody Emmanuel MD Signed By: <Electronically signed by Woody Emmanuel MD in OV> 09/14/241644 DD/ 1451 TD/TT: 09/14/24 1500 Live Study Manager: Amber Rosen MD IMG XR PROCEDURES Final Result * (ABNORMAL) Lipid Panel with Reflex to Direct LDL (06/22/2024 2:11 PM EDT) Triglycerides 80 <150 mg/dL [facility] Comment:Desirable Triglyceri de: less than 150 mg/dLBorderline High Triglyceride 150-199 mg/dLHigh Triglyceride: 200-499 mg/dLVery High Triglyceride: greater than or equal to 5OO mg/dL Cholesterol 107 <200 mg/dL [facility] Comment:Desirable Cholestero l: less than 200 mg/dLBorderline High Cholesterol: 200-239 mg/dLHigh Cholesterol: greater than 239 mg/dL LDL Cholesterol Calculated 73 <100 mg/dL [facility] Comment:Desirable LDL: less than 100 mg/dLNear Optimal/Above Optimal LDL: 110- 129 mg/dLBorderline High LDL: 130-159 mg/dLHigh LDL: 160-189 mg/dLVery High LDL: greater than or equal to 190 mg/dL HDL Cholesterol 18(L) >40 mg/dL [facility] Comment:Desirable HDL: great er than 40 mg/dL Note: This HDL assay may give artificially low results in patients with liver disease. Blood 06/22/2024 2:11 PM EDT 06/22/2024 4:04 PM EDT Amber Rosen MD LAB BLOOD ORDERABLES Final Resul t Performing Organization Address [facility] Co de Phone Number [facility] [address] [place] [phone] * Hepatitis C Antibody with Reflex to HCV, RNA, Quantitative, Real-Time PCR (06/22/2024 2:11 PM EDT) Hepatitis C Antibody Nonreactive Nonreactive [facility] Comment:Antibodies to HCV no t detected; does not exclude early acuteHCV infection. Blood Venous blood specimen / Unknown 06/22/2024 2:11 PM EDT 06/22/2024 4:04 PM EDT Amber Rosen MD LAB BLOOD ORDERABLES Final Resul t Performing Organization Address City/[facility]/ZIP Co de Phone Number [facility] [address] [place] [phone] * HIV-1/2 Antigen and Antibodies, Fourth Generation, with Reflexes (06/22/2024 2:11 PM EDT) HIV AB/AG Nonreactive Nonreactive [facility] Comment:HIV-1 p24 Ag and/or HIV-1/HIV-2 Ab not detected.A test result that is nonreactive does not exclude thepossibility of exposure to or infection with HIV-1 and/orHIV-2. Nonreactive results in this assay for individualswith prior exposure to HIV-1 and/or HIV-2 may be due toantigen and antibody levels that are below the limit ofdetection of this assay.The [place] HIV Ag/Ab Combo assay result andsupplemental assay results should be interpreted inconjunction with the patient's clinical presentation,history and other laboratory results. If the results areinconsistent with clinical evidence, additional testing issuggested to confirm the result. Blood Venous blood specimen / Unknown 06/22/2024 2:11 PM EDT 06/22/2024 4:04 PM EDT us Amber Rosen MD LAB BLOOD ORDERABLES Final Resul t [facility] [address] [place] [phone] * Hemoglobin A1c (06/22/2024 2:11 PM EDT) Hemoglobin A1c 5.8 <6.0 % [facility] Comment:Hemoglobin A1C Refer ence Range Adults: 4.8 - 6.0 % Non diabetic: < 6.0 % Goal: < 7.0 %Additional Action Suggested: > 8.0 %Note: Hemoglobin A1c results are invalid for patients with abnormal amounts of HbF. Blood transfusions may impact the HbA1c concentration in the patient sample. Estimated Average Glucose 120 mg/dL [facility] Comment:eAG = Estimated ave rage glucose which is %A1C expressed asaverage glucose, using the formula of the V5N-ZexiwubFfjjoxb Glucose study (ADAG), Diabetes Care, Vol.31,#8,2007 Blood Venous blood specimen / Unknown 06/22/2024 2:11 PM EDT 06/22/2024 4:04 PM EDT Amber Rosen MD LAB BLOOD ORDERABLES Final Resul t [facility] [address] [place] [phone] from Last 3 Months or Most Recently Relevant to Health Maintenance Insurance BC PPO [facility] Care Teams Eeo Officer Relationship Specialty Start Date End Date Amber Rosen MD [address] [place] [phone] PCP - General Family Medicine 01/26/22
--- OUTSIDE RECORDS SUMMARY | 2024-11-24 16:37 | XMS_ITS | Encounter Summary ---
Author Organization [employer] Address 75 [facility] 7t [place] [address] Care Team Providers Care Glue Drier Operator Name Role Phone Amber Rosen MD Primary Care Provider [phone] Encounter Details Date Type Department Care Team ([facility] st Contact Info) Description 06/05/2024 Orders Only [facility] [address] [place], [place] [phone] Amber Rosen MD 230 [place], [place] [phone] Social History Tobacco Use Types Packs/Day Years [...] the past 12 months, has t he [employer], [employer], oil or water [employer] threatened to shut off services in your [...] Procedure Name Priority Date/Time Associated Diagnosis Comments SLIDE REVIEW Routine 08/06/2024 1:37 PM EDT COMPLETE BLOOD COUNT MAN DIF Routine 08/06/2024 1:37 PM EDT SLIDE REVIEW Routine 06/22/2024 2:11 PM EDT documented in this encounter Results * Slide Review (08/06/2024 1:37 PM EDT) Slide Review MANUAL DIFF [facility] 08/06/2024 1:37 PM EDT 08/06/2024 4:10 PM EDT us Amber Rosen MD LAB BLOOD ORDERABLES Final Resul t [facility] [address] [place] [address] [phone] * (ABNORMAL) Complete Blood Count Manual Diff (08/06/2024 1:37 PM EDT) White Blood Count 6.3 4.8 - 10.8 X10*3/uL [facility] Red Blood Count 5.10 4.60 - 5.80 X10*6/uL [facility] Hemoglobin 10.1(L) 14.0 - 18.0 g/dl [facility] Hematocrit 36.6(L) 42.0 - 52.0 % [facility] Mean Corpuscular Volume 71.8(L) 80.0 - 98.0 fL [facility] Mean Corpuscular Hemoglobin 19.8(L) 27.0 - 33.0 pg [facility] Mean Corpuscular HGB Conc 27.6(L) 31.0 - 36.0 g/dl [facility] Red Cell Distribution Width 19.4(H) 11.0 - 16.0 % [facility] Platelet Count 139(L) 160 - 400 X10*3/uL [facility] NRBC Pct Auto 0.0 0.0 - 0.2 /100WBC [facility] NRBC Abs Auto 0.000 0.0 - 0.012 X10*3/uL [facility] Neutrophils % Manual 79(H) 45 - 73 % [facility] Band Neutrophils Percent 0(L) 3 - 5 % [facility] Lymphocytes Percent Manual 7(L) 20 - 40 % [facility] Monocytes Percent Manual 13(H) 2 - 11 % [facility] EOSINOPHILS % MANUAL 1 0 - 4 % [facility] NEUTROPHILS ABSOLUTE MANUAL 5.0 2.0 - 8.3 X10*3/uL [facility] LYMPHOCYTES ABSOLUTE MANUAL 0.4(L) 1.2 - 4.9 X10*3/uL [facility] MONOCYTES ABSOLUTE MANUAL 0.8 0.1 - 1.2 X10*3/uL [facility] EOSINOPHILS ABSOLUTE MANUAL 0.1 0.0 - 0.4 X10*3/uL [facility] Platelet Estimate DECREASED NORMAL [facility] Large Platelet PRESENT [facility] Platelet Morphology Comment NORMAL [facility] RBC Morphology NOTED [facility] Ovalocytes 1+ (5-14) /OIF [facility] [place] Cells 1+ (0-2) /OIF [facility] 08/06/2024 1:37 PM EDT 08/06/2024 4:10 PM EDT us Amber Rosen MD LAB BLOOD ORDERABLES Edited Resu lt - Final [facility] [address] [place] [phone] * Slide Review (06/22/2024 2:11 PM EDT) Slide Review VERIFIED [facility] 06/22/2024 2:11 PM EDT 06/22/2024 4:04 PM EDT Amber Rosen MD LAB BLOOD ORDERABLES Final Resul t [facility] [address] [place] [phone] documented in this encounter Visit Diagnoses Not on filedocumented in this encounter Additional Health Concerns Assessment Noted Time PHQ-9 Depression Total Score: 5 05/02/19 23 10:11 AM EDT documented as of this encounter Care Teams Glue Drier Operator Relationship Specialty Start Date End Date Amber Rosen MD [address] [place] [phone] PCP - General Family Medicine 01/26/22 documented as of this encounter
[2024-11-24 16:39] LABS: Hematocrit 31.8 % (42.0-52.0); Hemoglobin 8.5 g/dl (14.0-18.0); Mean Corpuscular HGB Conc 26.7 g/dl (31.0-36.0); Mean Corpuscular Hemoglobin 18.2 pg (27.0-33.0); Mean Corpuscular Volume 67.9 fL (80.0-98.0); NRBC Abs Auto 0.000 X10*3/uL (0.0-0.012); NRBC Pct Auto 0.0 /100WBC (0.0-0.2); PLT CLUMP 1; Red Blood Count 4.68 X10*6/uL (4.60-5.80); Reticulocytes Absolute 0.070 X10*6/uL (0.026-0.095)
[2024-11-24 17:18] LABS: Folate 5.7 ng/mL (> or = 4.0); Vitamin B12 174 pg/mL (200-900)
[2024-11-24 17:23] LABS: Alanine Aminotransferase 24 U/L (0-40); Albumin Level 4.5 g/dL (3.5-5.0); Alkaline Phosphatase 93 U/L (39-117); Anion Gap 11 (12-20); Aspartate Amino Transferase 35 U/L (5-37); Blood Urea Nitrogen 16 mg/dL (9-16); Calcium 8.8 mg/dL (8.4-10.2); Carbon Dioxide 27 mmol/L (22-29); Chloride 107 mmol/L (96-108); Cholesterol 110 mg/dL (<200); Estimated Glomerular Filt Rate > 60; HDL Cholesterol 18 mg/dL (>40); Iron 18 mcg/dL (45-160); Percent Iron Saturation 4 % (15-50); Potassium 4.1 mmol/L (3.3-5.1); Sodium 141 mmol/L (135-145); Total Iron Binding Capacity 474 mcg/dL (228-428); Total Protein 7.1 g/dL (6.5-8.0); Triglycerides 68 mg/dL (<150); Unsaturated Iron Binding 456 ug/dL
[2024-11-24 17:40] LABS: Basophils Percent Manual 1 % (0-2); Eosinophils Percent Manual 1 % (0-4); Lymphocytes Percent Manual 15 % (20-40); Monocytes Percent Manual 9 % (2-11); Neutrophils Percent Manual 74 % (45-73); Reflex LDLD? No
[2024-11-24 17:41] LABS: RBC Morphology NOTED
[2024-11-24 17:42] LABS: Stomatocytes 1+ (5-14) /OIF
[2024-11-24 17:43] LABS: Ferritin 12 ng/mL (20-250); Schistocytes 2+ (3-5) /OIF
[2024-11-24 17:46] LABS: Band Neutrophils Percent 0 % (3-5)
[2024-11-24 17:49] LABS: Basophils Abs Manual 0.1 X10*3/uL (0.0-0.2); Eosinophils Absolute Manual 0.1 X10*3/uL (0.0-0.4); Lymphocytes Absolute Manual 1.0 X10*3/uL (1.2-4.9); Monocytes Absolute Manual 0.6 X10*3/uL (0.1-1.2); Neutrophils Absolute Manual 4.8 X10*3/uL (2.0-8.3); Platelet Count 149 X10*3/uL (160-400); White Blood Count 6.5 X10*3/uL (4.8-10.8)
== END 2024-11-24 13:42 | disposition home or self-care (01) ==
LOC: HO.HHCL 13:41
PROVIDERS: PCP Family Medicine; Visit Provider Family Medicine
DX: I10 Essential (primary) hypertension (principal); D64.9 Anemia, unspecified
CPT/HCPCS: 36415; 80053; 80061; 82607; 82728; 82746; 83540; 85007; 85025; 85027; 85045

== ENCOUNTER 2024-12-17 11:35 | Outpatient (REF) | payer BC, SELFPAY ==
[2024-12-17 13:45] LABS: Hematocrit 28.6 % (42.0-52.0); Hemoglobin 7.7 g/dl (14.0-18.0); Imm Gran Abs Auto 0.02 X10*3/uL (0.00-0.03); Imm Gran Pct Auto 0.3 % (0.0-0.4); Lymphocytes Absolute Auto 0.6 X10*3/uL (1.2-4.9); MANUAL DIFF FLAG SCAN; Mean Corpuscular HGB Conc 26.9 g/dl (31.0-36.0); Mean Corpuscular Hemoglobin 17.3 pg (27.0-33.0); NRBC Abs Auto 0.000 X10*3/uL (0.0-0.012); NRBC Pct Auto 0.0 /100WBC (0.0-0.2); PLT CLUMP 1; Red Blood Count 4.44 X10*6/uL (4.60-5.80); SCAN SMEAR FLAG 1
[2024-12-17 13:46] LABS: Mean Corpuscular Volume 64.4 fL (80.0-98.0)
[2024-12-17 14:04] LABS: Ferritin 10 ng/mL (20-250); Iron 18 mcg/dL (45-160); Percent Iron Saturation 4 % (15-50); Total Iron Binding Capacity 445 mcg/dL (228-428); Unsaturated Iron Binding 427 ug/dL
--- OUTSIDE RECORDS SUMMARY | 2024-12-17 14:34 | XMS_ITS | Encounter Summary ---
Author Organization [employer] Address 75 [facility] 7t [place] [address] Care Team Providers Care Fabricating Machine Operator Name Role Phone Amber Rosen MD Primary Care Provider [phone] Encounter Details Date Type Department Care Team ([facility] st Contact Info) Description 08/27/2024 Orders Only [facility] MED[facility]INE [address] [place], [place] [phone] Amber Rosen MD 230 [place], [place] [phone] Social History Tobacco Use Types Packs/Day Years [...] documented as of this encounter Care Teams Fabricating Machine Operator Relationship Specialty Start Date End Date Amber Rosen MD [address] [place] [phone] PCP - General Family Medicine 01/26/22 documented as of this encounter
--- OUTSIDE RECORDS SUMMARY | 2024-12-17 14:34 | XMS_ITS | Encounter Summary ---
Author Organization [employer] Address 75 [facility] 7t [place] [address] Care Team Providers Care Hospitality Ambassador Name Role Phone Amber Rosen MD Primary Care Provider Encounter Details Date Type Department Care Team ([facility] st Contact Info) Description 12/16/2024 Orders Only [facility] [address] [place], [place] [phone] Amber Rosen MD [address] [place], [place] [phone] Fatigue, unspecified type (Primary Dx); Anemia, unspecified type Social History Tobacco Use Types Packs/Day Years [...] as of this encounter Plan of Treatment Scheduled Orders Name Type Priority Associated Diagnoses Orde r Schedule CBC auto differential Lab Routine Fatigue, unspecified type Anemia, unspecified type Expected: 12/16/2024 (Approximate), Expires: 12/16/2025 documented as of this encounter Procedures Procedure Name Priority Date/Time Associated Diagnosis Comments TSH W/REFLEX TO FT4 Routine 12/17/2024 1 1:38 AM EST Fatigue, unspecified type Anemia, unspecified type IRON AND TOTAL IRON BINDING CAPACITY Routine 12/17/2024 11:38 AM EST Fatigue, unspecified type Anemia, unspecified type FERRITIN Routine 12/17/2024 11:38 AM EST Fatigue, unspecified type Anemia, unspecified type documented in this encounter Results * TSH with Reflex to Free T4 (12/17/2024 11:38 AM EST) TSH reflex Free T4 1.84 0.32 - 4.0 uIU/mL [facility] Blood 12/17/2024 11:3 8 AM EST 12/17/2024 1:05 PM EST us Amber Rosen MD LAB BLOOD ORDERABLES Final Resul t [facility] [address] [place] [phone] * (ABNORMAL) Iron And Total Iron Binding Capacity (12/17/2024 11:38 AM EST) Iron 18(L) 45 - 160 mcg/dL [facility] Total Iron Binding Capacity 445(H) 228 - 428 mcg/dL [facility] Percent Iron Saturation 4(L) 15 - 50 % [facility] Unsaturated Iron Binding 427 ug/dL [facility] Blood Venous blood specimen / Unknown 12/17/2024 11:38 AM EST 12/17/2024 1:05 PM EST Amber Rosen MD LAB BLOOD ORDERABLES Final Resul t Performing Organization Address [facility]/ZIP Co de Phone Number [facility] [address] [place] [phone] * (ABNORMAL) Ferritin (12/17/2024 11:38 AM EST) Ferritin 10(L) 20 - 250 ng/mL [facility] Blood Venous blood specimen / Unknown 12/17/2024 11:38 AM EST 12/17/2024 1:05 PM EST Amber Rosen MD LAB BLOOD ORDERABLES Final Resul t Performing Organization Address City/[facility] Co de Phone Number [facility] [address] [place] [phone] documented in this encounter Visit Diagnoses Diagnosis Fatigue, unspecified type- Primary Anemia, unspecified type documented in this encounter Additional Health Concerns Assessment Noted Time PHQ-9 Depression Total Score: 0 06/23/19 25 2:04 PM EDT documented as of this encounter Care Teams Hospitality Ambassador Relationship Specialty Start Date End Date Amber Rosen MD [address] [place] [phone] PCP - General Family Medicine 01/26/22 documented as of this encounter
--- OUTSIDE RECORDS SUMMARY | 2024-12-17 14:34 | XMS_ITS | Encounter Summary ---
Author Organization [employer] Address 75 [facility] 7t [place] [address] Care Team Providers Care Dice Table Operator Name Role Phone Amber Rosen MD Primary Care Provider [phone] Encounter Details Date Type Department Care Team ([facility] st Contact Info) Description 08/27/2024 Orders Only [facility]INE [address] [place], [place] [phone] Amber Rosen MD [address] [place], [place] [phone] Social History Tobacco Use Types Packs/Day Years [...] documented as of this encounter Care Teams Dice Table Operator Relationship Specialty Start Date End Date Amber Rosen MD [address] [place] [phone] PCP - General Family Medicine 01/26/22 documented as of this encounter
--- OUTSIDE RECORDS SUMMARY | 2024-12-17 14:34 | XMS_ITS | Encounter Summary ---
Author Organization [employer] Address 75 [facility] 7t [place] [address] Care Team Providers Care Teachers' Assistant Name Role Phone Amber Rosen MD Primary Care Provider [phone] Reason for Visit * Reason Comments Med Refill Encounter Details Date Type Department Care Team (Late st Contact Info) Description 11/01/2022 Refill [facility]INE 230 [place], [place] [phone] Amber Rosen MD [address] [place], [place] [phone] Difficulty breathing; Asthma, unspecified asthma severity, unspecified [...] documented as of this encounter Care Teams Teachers' Assistant Relationship Specialty Start Date End Date Amber Rosen MD [address] [place] [address] PCP - General Family Medicine 01/26/22 documented as of this encounter
--- OUTSIDE RECORDS SUMMARY | 2024-12-17 14:34 | XMS_ITS | Encounter Summary ---
Author Organization [employer] Address 75 [facility] 7t [place] [address] Care Team Providers Care Director Housekeeping Name Role Phone Amber Rosen MD Primary Care Provider [phone] Reason for Visit * Reason Comments Med Change Request Encounter Details Date Type Department Care Team (Late st Contact Info) Description 06/11/2024 Refill [facility] [address] [place], [place] [phone] Mehreen Palmer, ANP [address] [place], [place] [phone] Longstanding persistent atrial fibrillation (CMS/HCC); H/O aortic [...] as of this encounter Care Teams Director Housekeeping Relationship Specialty Start Date End Date Amber Rosen MD [address] [place] [phone] PCP - General Family Medicine 01/26/22 documented as of this encounter
--- OUTSIDE RECORDS SUMMARY | 2024-12-17 14:34 | XMS_ITS | Encounter Summary ---
Author Organization [employer] Address 75 [facility] 7t [place] [address] Care Team Providers Care Metal Fabricator Welder Name Role Phone Amber Rosen MD Primary Care Provider [phone] Reason for Visit * Reason Comments Med Change Request Encounter Details Date Type Department Care Team (Late st Contact Info) Description 05/10/2023 Refill [facility] [address] [place], [place] [phone] Jesus Chaudhry MD [address] [place], [place] [phone] Primary hypertension; Difficulty breathing; Asthma, unspecified asthma [...] documented as of this encounter Care Teams Metal Fabricator Welder Relationship Specialty Start Date End Date Amber Rosen MD [address] [place] [address] PCP - General Family Medicine 01/26/22 documented as of this encounter
--- OUTSIDE RECORDS SUMMARY | 2024-12-17 14:34 | XMS_ITS | Encounter Summary ---
Author Organization [employer] Address [address] [place] [address] 7t [place] [address] Care Team Providers Care Director Behavioral Health Name Role Phone Amber Rosen MD Primary Care Provider Reason for Referral * Consultation (Urgent) - Closed Specialty Diagnoses / Procedures Referred By Contac t Referred To Contact Sleep Medicine Diagnoses TOMMY (obstructive sleep apnea) Amber Rosen MD [address] [place] [address] Phone: tel: fax: [facility] Phone: tel: fax: Referral ID Status Reason Start Date Expiration Date V isits Requested Visits Authorized [id number] Closed Specialty Services Required 10/28/2024 10/28/2025 1 1 Encounter Details Date Type Department Care Team (Late st Contact Info) Description 10/28/2024 Orders Only [facility] [address] [place] [address] Amber Rosen MD [address] [place] [address] TOMMY (obstructive sleep apnea) (Primary [...] as of this encounter Care Teams Director Behavioral Health Relationship Specialty Start Date End Date Amber Rosen MD [address] [place] [phone] PCP - General Family Medicine 01/26/22 documented as of this encounter
--- OUTSIDE RECORDS SUMMARY | 2024-12-17 14:34 | XMS_ITS | Encounter Summary ---
Author Organization [employer] Address 75 [facility] 7t [place] [address] Care Team Providers Care Saturator Name Role Phone Amber Rosen MD Primary Care Provider [phone] Encounter Details Date Type Department Care Team ([facility] st Contact Info) Description 05/14/2023 Orders Only [facility] MEDICINE [address] [place], [place] [phone] Amber Rosen MD 230 [place], [place] [phone] Difficulty breathing; Asthma, unspecified asthma severity, unspecified [...] documented as of this encounter Care Teams Saturator Relationship Specialty Start Date End Date Amber Rosen MD [address] [place] [phone] PCP - General Family Medicine 01/26/22 documented as of this encounter
--- OUTSIDE RECORDS SUMMARY | 2024-12-17 14:34 | XMS_ITS | Encounter Summary ---
Author Organization [employer] Address 75 [facility] 7t [place] [address] Care Team Providers Care Pbx Operator Name Role Phone Amber Rosen MD Primary Care Provider [phone] Reason for Visit * Reason Comments Med Refill Encounter Details Date Type Department Care Team (Late st Contact Info) Description 01/13/2023 Refill [facility] MEDICINE 230 [place], [place] [phone] Meron Anderson MD 230 [place], [place] [phone] Longstanding persistent atrial fibrillation (CMS/HCC); H/O aortic [...] documented as of this encounter Care Teams Pbx Operator Relationship Specialty Start Date End Date Amber Rosen MD [address] [place] [phone] PCP - General Family Medicine 01/26/22 documented as of this encounter
--- OUTSIDE RECORDS SUMMARY | 2024-12-17 14:34 | XMS_ITS | Clinical Summary ---
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 Potential interaction with warfarin. Category C. Medications Blood Pressure Monitor kitIndications: Primary hypertension Check blood pressure once daily and as needed 1 kit 05/02/19 23 Active acetaminophen (Tylenol) 500 MG tabletIndicatio ns:Symptomatic irreversible pulpitis Take 1 tablet (500 mg) by mouth every 6 (six) hours if needed for mild pain for up to 20 doses. 20 tablet 02/09/20 23 Active albuterol 108 (90 Base) MCG/ACT inhalerIndicati [...] 06/23/19 25 Active warfarin (Coumadin) 2 MG tabletIndicatio ns:Longstanding persistent atrial fibrillation (CMS/HCC) (HCC),H/O aortic valve replacement TAKE UP TO 2 TABS BY MOUTH ONCE DAILY DIRECTED BY THE COUMADIN CLINIC. 180 tablet 2 07/16/19 25 Active nicotine (Nicoderm CQ) 21 MG/24HR patch Place 1 patch on the skin 1 (one) time each day at the same time. 30 patch 2 07/30/19 25 Active ferrous sulfate (Fe Tabs) [...] OR CHEW 90 tablet 11/03/19 25 Active ascorbic acid (Vitamin C) 500 MG tablet Take 1 tablet (500 mg) by mouth Once per day. 90 tablet 3 11/26/19 25 026 Active Enoxaparin Sodium 150 MG/ML solution prefilled syringe Inject 140 mg under the skin Once per day. 07/30/19 25 025 Discontinued(Me d list cleanup (will not trigger notification to Pharmacy)) Active Problems Problem Noted Date Diagnosed Date Elevated liver enzymes 08/21/2024 Assessment & Plan (08/21/2024 2:06 PM EDT): - mild elevation - continue working on lifestyle modification - check lab periodically; ; consider US Dyspnea on exertion 08/06/2024 Assessment & Plan (12/06/2024 6:42 AM EDT): - Chronic heart failure, HFmrEF - Most recent acute on chronic heart failure episode in August 2024, required hospitalization and IV diuretic - Most recent echocardiogram showed a pulmonary hypertension. Referred to diesel engine engineer. Upcoming appointment for pulmonary rehab. - Continue working on smoking cessation Assessment & Plan (09/16/2024 10:02 AM EDT): - Chronic heart failure, HFmrEF - Most recent acute on chronic heart failure episode in August 2024, required hospitalization and IV diuretic. Status post ablation of atrial flutter Assessment & Plan (11/26/2024 6:52 PM EDT): - ablation on 07/28/24 at [facility] EP Assessment & Plan (09/15/2024 2:07 PM EDT): - ablation on 07/28/24 at [facility] EP Assessment & Plan (08/06/2024 5:37 AM EDT): - ablation on 07/28/24 at [facility] EP Anemia 08/06/2024 Assessment & Plan (12/06/2024 6:46 AM EDT): - Likely iron deficiency - On warfarin -Continue iron supplementation Symptomatic irreversible pulpitis 06/08/2024 Pain, dental 06/08/2024 Smoking greater than 20 pack years 01/23/2023 Assessment & Plan (12/06/2024 6:52 AM EDT): - lung cancer screening program in [facility] - LDCT Lung-RADS 2 on 10/08/2024 Assessment & Plan (09/16/2024 10:04 AM EDT): - referred to lung cancer screening program in [facility] Assessment & Plan (08/08/2024 9:15 AM EDT): - refer to lung cancer screening program in [facility] Assessment & Plan (06/22/2024 2:07 PM EDT): - refer to lung cancer screening program in [facility] Assessment & Plan (01/23/2023 5:57 AM EST): - refer to lung cancer screening program in [facility] Coronary artery disease 01/23/2023 Assessment & Plan (11/26/2024 6:52 PM EDT): - cardiac cath in 2019 showed non-obstructive CAD Assessment & Plan (09/15/2024 2:06 PM EDT): [...] medication -consider S referral in the future Generalized osteoarthrosis, involving [...] management Difficulty breathing 05/01/2022 Assessment & Plan (12/06/2024 6:48 AM EDT): -b/l pneumonia in Jan 2022 -Hx tobacco [...] with MCPI in Oct 2022 - EF 47% on echo in July 2024 - Pulmonary hypertension Assessment & Plan (01/23/2023 6:02 AM EST): [...] continuous oral anticoagulation 05/01/2022 Assessment & Plan (12/06/2024 6:44 AM EDT): - Dx atrial fibrillation - he self-monitors INR - continue warfarin - Check direct interaction with warfarin when prescribing the new medications Assessment & Plan (08/08/2024 9:14 AM EDT): [...] rosuvastatin -continue working on risk factor management -[id number] score 3 Assessment & Plan (08/21/2024 2:03 PM EDT): -continue aspirin -continue warfarin -previously on atorvastatin, switching to rosuvastatin -continue working on risk factor management -[id number] score 3 Assessment & Plan (06/22/2024 2:05 PM EDT): -continue aspirin -continue warfarin -continue Atorvastatin -continue working on risk factor management -[id number] score 3 Assessment & Plan (10/07/2022 7:02 AM EDT): -continue aspirin -continue warfarin -continue Atorvastatin -continue working on risk factor management -[id number] score 3 Assessment & Plan (07/31/2022 5:29 PM EDT): -continue aspirin -continue warfarin -continue Atorvastatin -continue working on risk factor management -[id number] score 3 Assessment & Plan (05/01/2022 10:05 AM EDT): -cont aspirin -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/ [employer] -cont Atorvastatin (lipitor) TOMMY (obstructive sleep apnea) 04/29/2022 Assessment & Plan (12/06/2024 6:51 AM EDT): - Most recent sleep study on 11/03/2024 - continue CPAP Assessment & Plan (08/08/2024 9:15 AM EDT): [...] referred to lung cancer screening program at [facility]; will check its status Assessment & Plan (01/23/2023 6:00 AM EST): - will obtain last CT report and update if indicated - CT angiogram in 2019 did not mention of pulmonary nodules - will consider referring to lung cancer screening program at [facility] Assessment & Plan (10/07/2022 7:06 AM EDT): - will obtain last CT report and update if indicated Tobacco dependence 04/29/2022 Assessment & Plan (12/06/2024 6:51 AM EDT): - Patient quit smoking in September 2024 Assessment & Plan (09/16/2024 10:04 AM EDT): - Patient quit smoking in 2018 and started again; Recently, pt stopped smoking since having pneumonia, then started again - Patient has not smoked since July 2024 - cont working on smoking cessation - patient is currently using nicotine patch, since the hospitalization Assessment & Plan (08/21/2024 2:00 PM EDT): - Patient quit smoking in 2018 and started again; Recently, pt stopped smoking since having pneumonia, then started again - cont working on smoking cessation - patient is currently using nicotine patch, since the hospitalization Assessment & Plan (06/22/2024 2:05 PM EDT): - Patient quit smoking in 2018 and started again; Recently, pt stopped smoking [...] Asthma-COPD overlap syndrome (CMS/HCC) Assessment & Plan (12/06/2024 6:50 AM EDT): -PFT in 2019 shows mild ventilatory defect; no obstructive disease - PFT on 11/05/2024 showed mixed obstructive and restrictive ventilatory defects, significant response to bronchodilator, suggestive of asthma. Interstitial lung disease. - Previously on tiotropium - Consider SMART with budesonide / formoterol (Symbicort) - Upcoming appointment with diesel engine engineer Assessment & Plan (08/21/2024 2:01 PM EDT): [...] diverticulitis 04/29/2022 Prediabetes 04/29/2022 Assessment & Plan (12/06/2024 6:45 AM EDT): - 5.8% on 06/22/2024 -continue working on lifestyle modifications Assessment & Plan (08/08/2024 9:14 AM EDT): [...] -continue working on lifestyle modifications Atrial fibrillation ([facility]/HCC) 01/29/2022 Assessment & Plan (11/26/2024 6:45 PM EDT): - Continue metoprolol - Continue Warfarin - followed by [facility] Anticoagulation clinic - pt tests INR at home Assessment & Plan (09/15/2024 2:06 PM EDT): - Continue metoprolol - Continue Warfarin - followed by [facility] Anticoagulation clinic - pt tests INR at home Assessment & Plan (08/08/2024 9:12 AM EDT): - Continue metoprolol - Continue Warfarin - followed by [facility] Anticoagulation clinic - pt tests INR at home Assessment & Plan (06/22/2024 9:17 AM EDT): - Continue metoprolol - Continue Warfarin - followed by [facility] Anticoagulation clinic - pt tests INR at home Assessment & Plan (01/07/2023 5:32 PM EST): - Continue metoprolol - Continue Warfarin - followed by [facility] Anticoagulation clinic - pt tests INR at home Assessment & Plan (10/07/2022 7:02 AM EDT): - Continue metoprolol - Continue Warfarin - followed by [facility] Anticoagulation clinic - pt tests INR at home Assessment & Plan (07/31/2022 5:12 PM EDT): - Continue Warfarin - followed by [facility] Anticoagulation clinic - pt tests INR at home Assessment & Plan (05/01/2022 10:05 AM EDT): Continue Warfarin -followed by [facility] Anticoagulation clinic -pt tests INR at [...] valve replacement 01/29/2022 Overview (05/01/2022): Followed by [facility] Cardiology -Pt had Aortic valve replacement in 1981 & 2018 Assessment & Plan (11/26/2024 6:46 PM EDT): - followed by [facility] cardiology - s/p aortic valve replacement in 1981 and 2018 Assessment & Plan (09/16/2024 10:01 AM EDT): - followed by [facility] cardiology - s/p aortic valve replacement in 1981 and 2018 - Ordered TTE since he has heart murmur; it has not been done it yet, but pt has an appt with tag and label cutter on 10/10/22 Assessment & Plan (08/08/2024 9:13 AM EDT): - followed by [facility] cardiology - s/p aortic valve replacement in 1981 and 2018 - Ordered TTE since he has heart murmur; it has not been done it yet, but pt has an appt with tag and label cutter on 10/10/22 - Continue lisinopril, atorvastatin and metoprolol Assessment & Plan (06/22/2024 2:02 PM EDT): - followed by [facility] cardiology - s/p aortic valve replacement in 1981 and 2018 - Ordered TTE since he has heart murmur; it has not been done it yet, but pt has an appt with tag and label cutter on 10/10/22 - Continue lisinopril, atorvastatin and metoprolol Assessment & Plan (01/07/2023 5:31 PM EST): - previously followed by [facility] cardiology, upcoming appt - s/p aortic valve replacement in 1981 and 2018 - Ordered TTE since he has heart murmur; it has not been done it yet, but pt has an appt with tag and label cutter on 10/10/22 - Continue lisinopril, atorvastatin and metoprolol Assessment & Plan (10/07/2022 7:02 AM EDT): - previously followed by [facility] cardiology, upcoming appt - s/p aortic valve replacement in 1981 and 2018 - Ordered TTE since he has heart murmur; it has not been done it yet, but pt has an appt with tag and label cutter on 10/10/22 - Continue lisinopril, atorvastatin and metoprolol Assessment & Plan (07/31/2022 5:14 PM EDT): - previously followed by [facility] cardiology - s/p aortic valve replacement in 1981 and 2018 - He has not followed up with tag and label cutter for a while - Will refer back - Order TTE since he has heart murmur - Continue lisinopril, atorvastatin and metoprolol Assessment & Plan (01/29/2022 3:26 PM EST): Sp AVR x 2, most recent one 3y ago. Obtain cardiology notes Continue lisinopril, atorvastatin and metoprolol Hypertension 01/29/2022 Assessment & Plan (11/26/2024 6:50 PM EDT): - Goal BP < 130/80 (Tx threshold > 140/90) per ACC/AHA guideline -Continue Metoprolol succinate 200 mg daily -Continue Lisinopril 30 mg daily -Continue furosemide 20 mg daily (not as needed) -Continue working on lifestyle modifications -Continue monitoring home BP -Reduce sodium intake Assessment & Plan (09/16/2024 10:00 AM EDT): [...] -reduce sodium intake Dyslipidemia Assessment & Plan (12/06/2024 6:43 AM EDT): - Last Lipid Profile 05/01/22 TC 138; HDL 20; LDL 96; TG 120 - Current medications: Atorvastatin 40mg - Patient had adverse reaction to rosuvastatin (interaction with warfarin) - Continue working on lifestyle modifications Assessment & Plan (09/16/2024 10:03 AM EDT): [...] Encounters Date Type Department Care Team Description 12/16/2024 Orders Only [facility] [place] [address] Amber Rosen MD Fatigue, unspecified type (Primary Dx); Anemia, unspecified type 11/25/2024 Orders [place] [address] Amber Rosen MD Other vitamin B12 deficiency anemia (Primary Dx); Other iron deficiency anemia 11/25/2024 Results Follow-[place] [address] Amber Rosen MD CBC auto differential, Lipid Panel with Reflex to Direct LDL, Comprehensive Metabolic Panel, Additional followed-up results: 4 11/24/2024 1:00 PM EDT Office [place] [address] Amber Rosen MD Longstanding persistent atrial fibrillation (CMS/HCC) (HCC) (Primary Dx); Status post ablation of atrial flutter; Primary hypertension; H/O aortic valve replacement; Coronary artery disease involving [place] coronary artery of [place] heart, unspecified whether angina present; Anemia, unspecified type; Asthma-COPD overlap syndrome (CMS/HCC) (HCC); Smoking greater than 20 pack years; Tobacco dependence; Dyspnea on exertion; Dyslipidemia; On continuous oral anticoagulation; Prediabetes; Difficulty breathing; TOMMY (obstructive sleep apnea) 11/24/2024 [place] [address] Amber Rosen MD 11/24/2024 Travel 11/23/2024 [place] [address] Amber Rosen MD chart prep 10/31/2024 [place] [address] Beverly Dickinson MD 10/28/2024 Orders [place] [address] Amber Rosen MD TOMMY (obstructive sleep apnea) (Primary Dx) 10/07/2024 2:30 PM EDT Office Visit [facility] [address] [facility] [place], [place] [id number] Beth Moran DDS History of tooth extraction, unspecified edentulism class (Primary Dx) 10/07/[address] [address] Amber Rosen MD november09/24/[address] [address] Amber Rosen MD 09/23/[address] [address] Amber Rosen MD 09/17/[address] [phone] Amber Rosen MD lung screening 09/17/[address] [address] Amber Rosen MD from Last 3 Months Immunizations Immunization Administration [...] 06/23/19 25 Diabetes: Hemoglobin A1C 06/22/2025 06/22/2024, 04/12 Disability Screening 06/22/2025 06/22/2024 SDOH Screening 06/22/2025 06/22/2024 Tobacco Screening 12/06/2025 12/06/2024 Dental X-Ray: Full Mouth 06/20/2027 06/18/2024 Lipid Panel 11/24/2029 11/24/2024, 06/11, 05/01/2022 DTaP/Tdap/Td Vaccines (6 - Td or [...] EST Fatigue, unspecified type Anemia, unspecified type COMPLETE BLOOD COUNT MAN DIF Routine 11/24/2024 1:50 PM EDT RETICULOCYTE COUNT Routine 11/24/2024 1: 50 PM EDT Anemia, unspecified type VITAMIN B12/FOLATE, SERUM PANEL Routine 11/24/2024 1:50 PM EDT Anemia, unspecified type IRON AND TOTAL IRON BINDING CAPACITY Routine 11/24/2024 1:50 PM EDT Anemia, unspecified type FERRITIN Routine 11/24/2024 1:50 PM EDT Anemia, unspecified type COMPREHENSIVE METABOLIC PANEL Routine 11/24/2024 1:50 PM EDT Primary hypertension LIPID PANEL WITH REFLEX TO DIRECT LDL Routine 11/24/2024 1:50 PM EDT Primary hypertension CBC WITH AUTO DIFFERENTIAL Routine 11/24/2024 1:50 PM EDT Anemia, unspecified type AMB REFERRAL TO SLEEP MEDICINE Urgent 11/03/2024 TOMMY (obstructive sleep apnea) 32 EXTRACTION, ERUPTED TOOTH OR EXPOSED ROOT (ELEVATION/FORCEPS REMOVAL) Routine 10/07/2024 2:30 PM EDT 4 EXTRACTION, ERUPTED TOOTH OR EXPOSED ROOT (ELEVATION/FORCEPS REMOVAL) Routine 10/07/2024 2:30 PM EDT HEPATITIS C AB W/REFL TO HCV RNA, QN, PCR Routine 06/22/2024 2:11 PM EDT Routine screening for STI (sexually transmitted infection) HIV 1/2 ANTIGEN/ANTIBODY, FOURTH GENERATION W/RFL Routine 06/22/2024 2:11 PM EDT Routine screening for STI (sexually transmitted infection) HEMOGLOBIN A1C Routine 06/22/2024 2:11 PM EDT Prediabetes INTRAORAL - COMPLETE SERIES OF RADIOGRAPHIC IMAGES Routine 06/18/2024 8:00 AM EDT PERIODIC ORAL EVALUATION - ESTABLISHED PATIENT Routine 06/18/2024 8:00 AM EDT from Last 3 Months or Most Recently Relevant to Health Maintenance Results * TSH with Reflex to Free T4 (12/17/2024 11:38 AM EST) TSH reflex Free T4 1.84 0.32 - 4.0 uIU/mL [facility] Blood 12/17/2024 11:3 8 AM EST 12/17/2024 1:05 PM EST us Amber Rosen MD LAB BLOOD ORDERABLES Final Resul t [facility] [address] [place] [phone] * (ABNORMAL) Iron And Total Iron Binding Capacity (12/17/2024 11:38 AM EST) Only the most recent of2 resultswithin the time period is included. Iron 18(L) 45 - 160 mcg/dL [facility] Total Iron Binding Capacity 445(H) 228 - 428 mcg/dL [facility] Percent Iron Saturation 4(L) 15 - 50 % [facility] Unsaturated Iron Binding 427 ug/dL [facility] Blood Venous blood specimen / Unknown 12/17/2024 11:38 AM EST 12/17/2024 1:05 PM EST Amber Rosen MD LAB BLOOD ORDERABLES Final Resul t Performing Organization Address City/[facility]/ZIP Co de Phone Number [facility] [address] [place] [phone] * (ABNORMAL) Ferritin (12/17/2024 11:38 AM EST) Only the most recent of2 resultswithin the time period is included. Ferritin 10(L) 20 - 250 ng/mL [facility] Blood Venous blood specimen / Unknown 12/17/2024 11:38 AM EST 12/17/2024 1:05 PM EST Amber Rosen MD LAB BLOOD ORDERABLES Final Resul t Performing Organization Address [facility] Co de Phone Number [facility] [address] [place] [phone] * (ABNORMAL) Complete Blood Count Manual Diff (11/24/2024 1:50 PM EDT) White Blood Count 6.5 4.8 - 10.8 X10*3/uL [facility] Red Blood Count 4.68 4.60 - 5.80 X10*6/uL [facility] Hemoglobin 8.5(L) 14.0 - 18.0 g/dl [facility] Hematocrit 31.8(L) 42.0 - 52.0 % [facility] Mean Corpuscular Volume 67.9(L) 80.0 - 98.0 fL [facility] Mean Corpuscular Hemoglobin 18.2(L) 27.0 - 33.0 pg [facility] Mean Corpuscular HGB Conc 26.7(L) 31.0 - 36.0 g/dl [facility] Red Cell Distribution Width 19.3(H) 11.0 - 16.0 % [facility] Platelet Count 149(L) 160 - 400 X10*3/uL [facility] NRBC Pct Auto 0.0 0.0 - 0.2 /100WBC [facility] NRBC Abs Auto 0.000 0.0 - 0.012 X10*3/uL [facility] Neutrophils % Manual 74(H) 45 - 73 % [facility] Band Neutrophils Percent 0(L) 3 - 5 % [facility] Lymphocytes Percent Manual 15(L) 20 - 40 % [facility] Monocytes Percent Manual 9 2 - 11 % [facility] EOSINOPHILS % MANUAL 1 0 - 4 % [facility] BASOPHILS % MANUAL 1 0 - 2 % [facility] NEUTROPHILS ABSOLUTE MANUAL 4.8 2.0 - 8.3 X10*3/uL [facility] LYMPHOCYTES ABSOLUTE MANUAL 1.0(L) 1.2 - 4.9 X10*3/uL [facility] MONOCYTES ABSOLUTE MANUAL 0.6 0.1 - 1.2 X10*3/uL [facility] EOSINOPHILS ABSOLUTE MANUAL 0.1 0.0 - 0.4 X10*3/uL [facility] BASOPHILS ABSOLUTE MANUAL 0.1 0.0 - 0.2 X10*3/uL [facility] Platelet Estimate NORMAL NORMAL [facility] Platelet Morphology Comment NORMAL [facility] RBC Morphology NOTED [facility] Stomatocytes 1+ (5-14) /OIF [facility] Schistocytes 2+ (3-5) /OIF [facility] 11/24/2024 1:50 PM EDT 11/24/2024 4:09 PM EDT us Amber Rosen MD LAB BLOOD ORDERABLES Final Resul t [facility] [address] [place] [phone] * (ABNORMAL) Vitamin B12 (Cobalamin) and Folate Panel, Serum (11/24/2024 1:50 PM EDT) Vitamin B12 174(L) 200 - 900 pg/mL [facility] Comment:NORMAL 200-900 PG/ML INDETERMINATE 160-199 PG/ML DEFICIENT < 160 PG/ML Folate 5.7 > or = 4.0 ng/mL [facility] Comment:Reference Values:> o r = 4.0 ng/mL< 4.0 ng/mL suggests folate deficiency Methotrexate, aminopterin and folinic acid(leucovorin) are chemotherapeutic agents whose molecularstructures are similar to folate; therefore, the Architectfolate assay cannot be used for patients using these drugs. Blood 11/24/2024 1:50 PM EDT 11/24/2024 4:04 PM EDT us Amber Rosen MD LAB BLOOD ORDERABLES Final Resul t [facility] [address] [place] [phone] * (ABNORMAL) Lipid Panel with Reflex to Direct LDL (11/24/2024 1:50 PM EDT) Triglycerides 68 <150 mg/dL [facility] Comment:Desirable Triglyceri de: less than 150 mg/dLBorderline High Triglyceride 150-199 mg/dLHigh Triglyceride: 200-499 mg/dLVery High Triglyceride: greater than or equal to 5OO mg/dL Cholesterol 110 <200 mg/dL [facility] Comment:Desirable Cholestero l: less than 200 mg/dLBorderline High Cholesterol: 200-239 mg/dLHigh Cholesterol: greater than 239 mg/dL LDL Cholesterol Calculated 79 <100 mg/dL [facility] Comment:Desirable LDL: less than 100 mg/dLNear Optimal/Above Optimal LDL: 110- 129 mg/dLBorderline High LDL: 130-159 mg/dLHigh LDL: 160-189 mg/dLVery High LDL: greater than or equal to 190 mg/dL HDL Cholesterol 18(L) >40 mg/dL [facility] Comment:Desirable HDL: great er than 40 mg/dL Note: This HDL assay may give artificially low results in patients with liver disease. Blood 11/24/2024 1:50 PM EDT 11/24/2024 4:09 PM EDT Amber Rosen MD LAB BLOOD ORDERABLES Final Resul t Performing Organization Address [facility] Number [facility] [address] [place] [phone] * (ABNORMAL) Reticulocyte Count (11/24/2024 1:50 PM EDT) Reticulocytes Absolute 0.070 0.026 - 0.095 X10*6/uL [facility] Immature Retic Fraction 9.8 2.3 - 13.4 % [facility] Retic HGB Equivalent 15.3(L) 30.0 - 35.0 pg [facility] Reticulocyte Percent 1.5 0.5 - 1.8 % [facility] Blood Venous blood specimen / Unknown 11/24/2024 1:50 PM EDT 11/24/2024 4:09 PM EDT Amber Rosen MD LAB BLOOD ORDERABLES Final Resul t Performing Organization Address [facility] Number [facility] [address] [place] [phone] * (ABNORMAL) Comprehensive Metabolic Panel (11/24/2024 1:50 PM EDT) Sodium 141 135 - 145 mmol/L [facility] Potassium 4.1 3.3 - 5.1 mmol/L [facility] Chloride 107 96 - 108 mmol/L [facility] Carbon Dioxide 27 22 - 29 mmol/L [facility] Anion Gap 11(L) 12 - 20 [facility] Urea Nitrogen (BUN) 16 9 - 16 mg/dL [facility] Creatinine, Serum 1.16 0.5 - 1.4 mg/dL [facility] Estimated Glomerular Filt Rate >60 [facility] Comment:Chronic Kidney Disea se: Estimated GFR < 60 mL/min/1.08d8Cpgmat Kidney Disease: Estimated GFR < 15 mL/min/1.73m2 Glucose 98 60 - 115 mg/dL [facility] Calcium 8.8 8.4 - 10.2 mg/dL [facility] Bilirubin, Total 0.7 0.0 - 1.0 mg/dL [facility] Aspartate Amino Transferase 35 5 - 37 U/L [facility] Alanine Aminotransferase 24 0 - 40 U/L [facility] Total Protein 7.1 6.5 - 8.0 g/dL [facility] Albumin Level 4.5 3.5 - 5.0 g/dL [facility] Alkaline Phosphatase 93 39 - 117 U/L [facility] Blood Venous blood specimen / Unknown 11/24/2024 1:50 PM EDT 11/24/2024 4:09 PM EDT Amber Rosen MD LAB BLOOD ORDERABLES Final Resul t Performing Organization Address City/State/[facility] Co de Phone Number [facility] [address] [place] [phone] * Referral to Sleep Medicine (11/03/2024) Amber Rosen MD OUTPATIENT REFERRAL ORDERABLES F inal Result * Hepatitis C Antibody with Reflex to HCV, RNA, Quantitative, Real-Time PCR (06/22/2024 2:11 PM EDT) Hepatitis C Antibody Nonreactive Nonreactive [facility] Comment:Antibodies to HCV no t detected; does not exclude early acuteHCV infection. Blood Venous blood specimen / Unknown 06/22/2024 2:11 PM EDT 06/22/2024 4:04 PM EDT Amber Rosen MD LAB BLOOD ORDERABLES Final Resul t [facility] [address] [place] [phone] * HIV-1/2 Antigen and Antibodies, Fourth Generation, with Reflexes (06/22/2024 2:11 PM EDT) HIV AB/AG Nonreactive Nonreactive [facility] Comment:HIV-1 p24 Ag and/or HIV-1/HIV-2 Ab not detected.A test result that is nonreactive does not exclude thepossibility of exposure to or infection with HIV-1 and/orHIV-2. Nonreactive results in this assay for individualswith prior exposure to HIV-1 and/or HIV-2 may be due toantigen and antibody levels that are below the limit ofdetection of this assay.The [employer] HIV Ag/Ab Combo assay result andsupplemental assay results should be interpreted inconjunction with the patient's clinical presentation,history and other laboratory results. If the results areinconsistent with clinical evidence, additional testing issuggested to confirm the result. Blood Venous blood specimen / Unknown 06/22/2024 2:11 PM EDT 06/22/2024 4:04 PM EDT us Amber Rosen MD LAB BLOOD ORDERABLES Final Resul t Performing Organization Address [facility] Co de Phone Number [facility] [address] [place] [phone] * Hemoglobin A1c (06/22/2024 2:11 PM EDT) Hemoglobin A1c 5.8 <6.0 % [facility] Comment:Hemoglobin A1C Refer ence Range Adults: 4.8 - 6.0 % Non diabetic: < 6.0 % Goal: < 7.0 %Additional Action Suggested: > 8.0 %Note: Hemoglobin A1c results are invalid for patients with abnormal amounts of HbF. Blood transfusions may impact the HbA1c concentration in the patient sample. Estimated Average Glucose 120 mg/dL [facility] Comment:eAG = Estimated ave rage glucose which is %A1C expressed asaverage glucose, using the formula of the H3Q-AeqtryuArpoore Glucose study (ADAG), Diabetes Care, Vol.31,#8,Sep. 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
--- OUTSIDE RECORDS SUMMARY | 2024-12-17 14:34 | XMS_ITS | Encounter Summary ---
Author Organization [employer] Address [address] [facility] [place] [address] Care Team Providers Care Blending Supervisor Name Role Phone Amber Rosen MD Primary Care Provider [phone] Encounter Details Date Type Department Care Team ([facility] st Contact Info) Description 06/05/2024 Orders Only [facility]INE [address], [place] [phone] Amber Rosen MD [address] [place], [place] [phone] Social History Tobacco Use Types Packs/Day Years [...] the past 12 months, has t he In [employer], doo, oil or water [employer]erdies threatened to shut off services in your [...] 1:37 PM EDT) Slide Review MANUAL DIFF [facility] 08/06/2024 1:37 PM EDT 08/06/2024 4:10 PM EDT us Amber Rosen MD LAB BLOOD ORDERABLES Final Resul t [facility] [address] [place] [address] [phone] * (ABNORMAL) Complete Blood Count Manual Diff (08/06/2024 1:37 PM EDT) White Blood Count 6.3 4.8 - 10.8 X10*3/uL [facility] Red Blood Count 5.10 4.60 - 5.80 X10*6/uL [facility] Hemoglobin 10.1(L) 14.0 - 18.0 g/dl [facility] Hematocrit 36.6(L) 42.0 - 52.0 % [facility] Mean Corpuscular Volume 71.8(L) 80.0 - 98.0 fL [facility] Mean Corpuscular Hemoglobin 19.8(L) 27.0 - 33.0 pg [facility] Mean Corpuscular HGB Conc 27.6(L) 31.0 - 36.0 g/dl [facility] Red Cell Distribution Width 19.4(H) 11.0 - 16.0 % [facility] Platelet Count 139(L) 160 - 400 X10*3/uL [facility] NRBC Pct Auto 0.0 0.0 - 0.2 /100WBC [facility] NRBC Abs Auto 0.000 0.0 - 0.012 X10*3/uL [facility] Neutrophils % Manual 79(H) 45 - 73 % [facility] Band Neutrophils Percent 0(L) 3 - 5 % [facility] Lymphocytes Percent Manual 7(L) 20 - 40 % [facility] Monocytes Percent Manual 13(H) 2 - 11 % [facility] EOSINOPHILS % MANUAL 1 0 - 4 % [facility] NEUTROPHILS ABSOLUTE MANUAL 5.0 2.0 - 8.3 X10*3/uL [facility] LYMPHOCYTES ABSOLUTE MANUAL 0.4(L) 1.2 - 4.9 X10*3/uL [facility] MONOCYTES ABSOLUTE MANUAL 0.8 0.1 - 1.2 X10*3/uL [facility] EOSINOPHILS ABSOLUTE MANUAL 0.1 0.0 - 0.4 X10*3/uL [facility] Platelet Estimate DECREASED NORMAL [facility] Large Platelet PRESENT [facility] Platelet Morphology Comment NORMAL [facility] RBC Morphology NOTED [facility] Ovalocytes 1+ (5-14) /OIF [facility] Franklin Cells 1+ (0-2) /OIF [facility] 08/06/2024 1:37 PM EDT 08/06/2024 4:10 PM EDT us Amber Rosen MD LAB BLOOD ORDERABLES Edited Resu lt - Final [facility] [address] [place] [phone] * Slide Review (06/22/2024 2:11 PM EDT) Slide Review VERIFIED [facility] 06/22/2024 2:11 PM EDT 06/22/2024 4:04 PM EDT Amber Rosen MD LAB BLOOD ORDERABLES Final Resul t [facility] [address] [place] [phone] documented in this encounter Visit Diagnoses Not on filedocumented in this encounter Additional Health Concerns Assessment Noted Time PHQ-9 Depression Total Score: 5 05/02/19 23 10:11 AM EDT documented as of this encounter Care Teams Blending Supervisor Relationship Specialty Start Date End Date Amber Rosen MD [address] [place] [phone] PCP - General Family Medicine 01/26/22 documented as of this encounter
--- OUTSIDE RECORDS SUMMARY | 2024-12-17 14:35 | XMS_ITS | Encounter Summary ---
Author Organization [employer] Address [address] [facility] [address] [place] [address] Care Team Providers Care Yacht Captain Name Role Phone Amber Rosen MD Primary Care Provider [phone] Encounter Details Date Type Department Care Team ([facility] st Contact Info) Description 11/25/2024 Orders Only [facility] MEDICINE [address] [place], [place] [phone] Amber Rosen MD [address] [place], [place] [phone] Other vitamin B12 deficiency anemia (Primary Dx); Other iron deficiency anemia Social History Tobacco Use Types Packs/Day Years [...] Type Priority Associated Diagnoses Orde r Schedule Intrinsic Factor Blocking Antibody Lab Routine Other vitamin B12 deficiency anemia Other iron deficiency anemia Expected: 11/25/2024 (Approximate), Expires: 11/25/2025 Helicobacter pylori Antigen, EIA, Stool Lab Routine Other vitamin B12 deficiency anemia Other iron deficiency anemia Expected: 11/25/2024, Expires: 11/25/2025 Celiac Disease Comprehensive Panel Lab Routine Other vitamin B12 deficiency anemia Other iron deficiency anemia Expected: 11/25/2024, Expires: 11/25/2025 documented as of this encounter Visit Diagnoses Diagnosis Other vitamin B12 deficiency anemia- Primary Other iron deficiency anemia documented in this encounter Additional Health Concerns Assessment Noted Time PHQ-9 Depression Total Score: 0 06/23/19 25 2:04 PM EDT documented as of this encounter Care Teams Yacht Captain Relationship Specialty Start Date End Date Amber Rosen MD [address] [place] [phone] PCP - General Family Medicine 01/26/22 documented as of this encounter
[2024-12-17 14:42] LABS: Platelet Count 288 X10*3/uL (160-400); White Blood Count 6.0 X10*3/uL (4.8-10.8)
[2024-12-18 19:54] LABS: Immunoglobulin A 164 mg/dL (47-310)
[2024-12-20 10:38] LABS: Intrinsic Factor Antibodies Negative (Negative)
== END 2024-12-17 11:36 | disposition home or self-care (01) ==
LOC: HO.HHCL 11:35
PROVIDERS: PCP Family Medicine; Visit Provider Family Medicine
DX: D51.8 Other vitamin B12 deficiency anemias (principal); D64.9 Anemia, unspecified; D50.8 Other iron deficiency anemias; R53.83 Other fatigue
CPT/HCPCS: 36415; 82728; 82784; 83540; 84443; 85025; 86340; 86364